=== PATIENT | female | born 1950 | race Caucasian/White ===

== ENCOUNTER 2020-11-18 18:17 | Inpatient (IN) | payer MEDICARE, OTHER, SELFPAY ==
[2020-11-18] VITALS (11 sets, daily range): BP systolic 82–113; BP diastolic 59–72; PULSE 83–99; RESP 14–23; TEMP 36.5; O2SAT 93–97
--- NOTE | ~2020-11-18 | CT_ITS ---
EXAMINATION: CT abdomen pelvis wo con DATE: 11/18/2020 20:00 INDICATION: Generalized abdominal pain. Status post cholecystectomy. TECHNIQUE: Computed tomography (CT) of the abdomen and pelvis was performed without intravenous contr ast. Automated exposure control and iterative reconstruction technique were employed. Exam dose: 691 .11 mGy-cm total exam DLP. COMPARISON: None. FINDINGS: There is bilateral dependent lower lobe atelectasis. No pericardial or pleural effusion. There is a large hiatal hernia. There is a right anterior percutaneous pigtail catheter in the gallbladder fossa, with some surroundi ng fat stranding. Anterior abdominal wall dayanna. No hepatic space-occupying mass lesion or bile duct dilatation. Normal splenic size. No pancreatic ma ss lesion, calcification or ductal dilatation is evident. The adrenal glands are unremarkable. There is a pinpoint nonobstructing lower pole right renal calculus. There is evidence of a subtle pin point nonobstructing lower pole left renal calculus as well. No ureteral calculus or hydroureteroneph rosis is evident. No renal space occupying mass lesion is evident on this limited noncontrast examina tion. There is atherosclerotic calcification of the abdominal aorta but no aneurysm. No intraperitoneal or retroperitoneal or pelvic mass lesion or adenopathy or ascites. No evidence of appendicitis. There is generalized thickening of the wall of the colon, possibly relat ed to evacuation versus colitis. No pneumatosis. No bowel obstruction or intraperitoneal free air is evident. There is some air within the urinary bladder lumen, possibly related to recent instrumentation; diffe rential diagnosis includes infection or less likely fistula. Urinary bladder is otherwise unremarkabl e. Status post hysterectomy. There is severe degenerative change of the thoracic and lumbar spine. IMPRESSION: Postoperative abdomen with percutaneous surgical pigtail drain in gallbladder fossa Bilateral dependent lower lobe atelectasis Large hiatal hernia Pinpoint nonobstructing lower pole calculus of each kidney is suggested Generalized prominence of the colon wall of the colon, possibly due to evacuation versus colitis Reviewed, dictated and finalized at [facility]. Reviewed, dictated and finalized at [facility]. IMPRESSION: Postoperative abdomen with percutaneous surgical pigtail drain in gallbladder fossa Bilateral dependent lower lobe atelectasis Large hiatal hernia Pinpoint nonobstructing lower pole calculus of each kidney is suggested Generalized prominence of the colon wall of the colon, possibly due to evacuati on versus colitis
--- NOTE | 2020-11-18 18:25 | ECG_ITS ---
Measurements Intervals [place] Rate: 96 P: 24 CO: 148 QRS: -43 QRSD: 99 T: 131 QT: 378 QTc: 480 Interpretive Statements SINUS RHYTHM LEFT AXIS DEVIATION POOR R WAVE PROGRESSION, ANTERIOR LEADS BORDERLINE ST-T WAVE ABNORMALITY- ANTEROLAT/INF LEADS BASELINE ARTIFACT- I, II, III, AVF BORDERLINE ECG Electronically Signed On 11-18-2020 21:17:33 CDT by Unruly Clay D.O.
[2020-11-18 18:53] LABS: Basophils Absolute Auto 0.1 K/mm3 (0.0-0.1); Basophils Percent Auto 0.4 % (0.2-1.2); Eosinophils Absolute Auto 0.1 K/mm3 (0-0.3); Eosinophils Percent Auto 0.2 % (0-4.4); Hematocrit 39.8 % (37.0-47.0); Hemoglobin 12.8 g/dL (12.0-15.0); Immature Granulocyte Absolute 0.47 K/mm3 (0.00-0.031); Immature Granulocyte Percent A 1.8 % (0-0.5); Lymphocytes Absolute Auto 1.44 K/mm3 (0.9-3.2); Lymphocytes Percent Auto 5.6 % (18.3-44.2); Mean Corpuscular HGB Conc 32.2 g/dl (32-36); Mean Corpuscular Hemoglobin 29.7 pg (26-34); Mean Corpuscular Volume 92.3 fl (80-100); Mean Platelet Volume 9.9 fl (7.4-10.4); Monocytes Absolute Auto 1.2 K/mm3 (0.1-0.6); Monocytes Percent Auto 4.5 % (2.6-8.5); Neutrophils Absolute Auto 22.4 K/mm3 (1.3-6.7); Neutrophils Percent Auto 87.5 % (45.5-73.1); Platelet Count Result 335 k/mm3 (150-375); Red Blood Count 4.31 M/mm3 (4.2-5.4); Red Cell Distribution Width 14.7 % (11.5-14.5); White Blood Count 25.6 K/mm3 (4.5-10.0)
[2020-11-18 19:03] LABS: Lactic Acid Reflex 1.7 mmol/L (0.7-2.1)
[2020-11-18 19:04] LABS: Add Urine Microscopic? YES; Appearance Urine Turbid (Clear); Bacteria Urine 1+ /hpf; Bilirubin Urine Negative (Negative); Color Urine Yellow (Yellow); Glucose Urine UA Negative (Negative); Ketones Urine Negative (Negative); Leukocyte Esterase Ur 1+ LEU/UL (Negative); Mucus Urine Rare /lpf; Nitrate Urine Negative (Negative); Protein Urine 2+ mg/dL (Negative); RBC Urine 51-75 /hpf (0-2); Specific Grav Ur 1.026 (1.001-1.035); Squamous Epithelial Cell Urine Many /hpf (Few); Urobilinogen Urine Negative mg/dL (<2.0); WBC Urine >75 /hpf
[2020-11-18 19:12] LABS: Blood Urine Negative (Negative)
[2020-11-18 19:32] LABS: Alanine Aminotransferase 10 U/L (4-35); Albumin Level 3.7 g/dL (3.5-5.1); Alkaline Phosphatase 97 U/L (38-126); Anion Gap 13 mmol/L (8-16); Aspartate Amino Transferase 16 U/L (14-36); Bilirubin,Total 0.6 mg/dL (0.2-1.3); Blood Urea Nitrogen 36 mg/dL (7-17); Calcium 8.7 mg/dL (8.4-10.2); Carbon Dioxide 23 mmol/L (22-30); Chloride 101 mmol/L (98-107); Estimated CRCL calculation 12 ml/min; Estimated Glomerular Filt Rate 12; Glucose 105 mg/dL (65-105); Potassium 3.3 mmol/L (3.4-5.0); Sodium 137 mmol/L (137-145)
--- NOTE | 2020-11-18 19:32 | ED.AMS ---
HPI - Altered Mental Status General Chief Complaint: Altered Mental Status <Syd Stoll MD - Last Filed: 11/19/20 00:05> Stated Complaint: ?sepsis <Syd Stoll MD - Last Filed: 11/19/20 00:05> Time Seen by Provider: 11/18/20 18:51 <Syd Stoll MD - Last Filed: 11/19/20 00:05> Source: EMS and RN notes reviewed <Syd Stoll MD - Last Filed: 11/19/20 00:05> Mode of arrival: EMS <Syd Stoll MD - Last Filed: 11/19/20 00:05> Limitations: dementia <Syd Stoll MD - Last Filed: 11/19/20 00:05> History of Present Illness HPI narrative: Patient is 70 years old white female came by ambulance from [facility] because of decreased level of consciousness. Normally patient is awake, alert and oriented x2, today oriented to herself only. Patient also had frequent loose stools started yesterday at least 6 episodes overnight smelled like C. difficile. Patient used to be on Augmentin started November 07, ended on November 14. Patient also had history of normal pressure hydrocephalus scheduled to see a neurologist on the eighth of this month. Patient was admitted to [facility] on November 07, had right upper quadrant drain because patient is not a candidate for surgery. Patient is full code. The above history [facility] through a phone call. <Syd Stoll MD - Last Filed: 11/19/20 00:05> Related Data Home Medications: Home Medications Medication Instructions Recorded Confirmed acetaminophen 500 mg PO QID PRN 11/18/20 11/18/20 amoxicillin-pot clavulanate tablet 11/18/20 [Augmentin] atorvastatin 20 mg PO DAILY 11/18/20 11/18/20 hydrochlorothiazide 25 mg PO DAILY 11/18/20 11/18/20 levothyroxine 150 mcg PO DAILY 11/18/20 11/18/20 lisinopril 40 mg PO DAILY 11/18/20 11/18/20 polyethylene glycol 3350 [Miralax] 17 g PO DAILY 11/18/20 11/18/20 <Syd Stoll MD - Last Filed: 11/19/20 00:05> Allergies/Adverse Reactions: Allergies Allergy/AdvReac Type Severity Reaction Status Date / Time meperidine Allergy Mild Unknown Verified 11/19/20 00:00 <Syd Stoll MD - Last Filed: 11/19/20 00:05> Review of Systems Review of Systems: All systems reviewed & are unremarkable except as noted in HPI and below <Syd Stoll MD - Last Filed: 11/19/20 00:05> Exam Narrative: Exam Narrative: General appearance: Well-developed, well-nourished laying down flat in bed, does not look in pain or distress, Skin: Dry skin r Head: Normocephalic, nontraumatic Eyes: Clear conjunctiva ENT: Dry oral cavity and tongue Neck: Supple, nontender Chest and respiratory: Airway patent, no respiratory distress, no accessory muscle use Heart: Regular rate/rhythm Abdomen: Soft, positive tenderness right abdomen around the drain., no organomegaly, quiet bowel sounds Vascular: Normal peripheral pulses, normal capillary refill. Neurologic: Alert and oriented to her name only <Syd Stoll MD - Last Filed: 11/19/20 00:05> Course Course Emergency Course: Stable <Syd Stoll MD - Last Filed: 11/19/20 00:05> Return to myself and Dr. Stoll seen evaluate myself agree with initial H&P Discussed with Dr. Bonilla patient presentation work-up no beds available at [facility] agrees to admission at this time awaiting bed at [facility] <Bennett Forte DO - Last Filed: 11/19/20 01:00> Reevaluation(s) Reevaluation #1: Patient laying down in bed comfortable, hemodynamically stable, <Syd Stoll MD - Last Filed: 11/19/20 00:05> Date: 11/18/20 <Syd Stoll MD - Last Filed: 11/19/20 00:05> Time: 23:53 <Syd Stoll MD - Last Filed: 11/19/20 00:05> Consultations Consultation #1:
[2020-11-18 19:43] LABS: Alveolar/Arterial O2 Gradient 45.7 mmHg; Base Excess ABG -2.3 mEq/l (+/-2.0); Fractional Inspired Oxygen 21 %; HCO3 ABG 20.4 mEq/l (22.0-26.0); Oxygen Content ABG 16.8 %vol (16.0-22.0); Oxygen Saturation ABG 94.9 % (95.0-100.0); Oxyhemoglobin 92.6 % THb (90.0-100.0); PCO2 ABG 29.3 mmHg (35.0-45.0); PO2 ABG 68.9 mmHg (80.0-100.0); PO2 FiO2 Ratio Arterial Blood 3.28 %; Total Hemoglobin 12.9 g/dL (12.0-18.0); pH ABG 7.461 (7.350-7.450)
[2020-11-18 19:44] LABS: Device ROOM AIR; Modified Allen's Test Pass; Site Drawn RIGHT RADIAL
[2020-11-18] MEDS: SODIUM CHLORIDE 0.9% IV 1,000 ML 999 ML IV CONT ×2 (20:21→23:14)
[2020-11-18 22:16] LABS: EDCOVIDSCREEN Negative (Negative)
--- NOTE | 2020-11-18 23:00 | PC.NURSE ---
Assumed care of pt. at this time. Report from [facility]
[2020-11-19] VITALS (9 sets, daily range): BP systolic 100–124; BP diastolic 68–76; PULSE 70–95; RESP 13–19; TEMP 36.2–36.8; O2SAT 93–98; BMI 25.7
--- NOTE | 2020-11-19 00:29 | PC.NURSE ---
Spoke with Mass[facility] in regards to pt. triage information. States we are on a bed crunch right now.
[2020-11-19] MEDS: SODIUM CHLORIDE 0.9% IV 1,000 ML 125 ML IV CONT ×4 (00:50→17:56)
--- NOTE | 2020-11-19 02:08 | ADMGEN ---
This patient, Anu Aguilar, was admitted to 2 Medical Room [facility] in [place]- @0208. Patient/family oriented to hospital policies and general routines including ID bracelet, bed and alarms, visiting hours, pain management, procedures, bathroom and other care routines, personal items, smoking policy, room service/diet, and visiting hours. Information on how to activate the Rapid Response Team has been discussed. Patient/Family are encouraged to report perceived risks to care and to ask questions if they do not understand what they are told or what they should do.
--- NOTE | 2020-11-19 08:29 | PM.IMHP ---
H&P: HPI History of Present Illness Date/Time: 11/19/20 08:15 Patient is a 70-year-old female with past medical history of hypertension, hyperlipidemia, GERD, hypothyroidism, and anxiety and depression and who presented to the ED with complaints of altered mental status from [facility]. It is very unclear why this patient was put in the [facility] however she does have a recently placed pigtail on the right side of her abdomen to drain the gallbladder because patient is unable to have surgery or is not a candidate. According the nurse home the patient is normally A and O x2. This patient normally sees doctors at [facility], and [facility] has been contacted for transfer [facility] has accepted this patient however patient is awaiting bed. retirement also stated the patient has had frequent loose stools and they felt like it was C diff. Patient has been on Augmentin that was started on November 07. Upon examining the patient the patient went answer questions she did tell me would not open her eyes. She told me that the year was 2009 but she did know the president was President Leobardo. When I would ask patient about her symptoms she would just say no however she did tell me that she does smoke about a pack and half a day but when asked about the diarrhea she said she has not had any diarrhea. Patient also has a high creatinine 3.7 and her white count is 25.6 Zosyn has been started for this patient will continue for now. Will deescalate and change antibiotics with cultures. Stool is also been sit down for C diff results are pending. Patient is a poor historian and currently lying in bed and stated that she was tired and she want to go home. Patient is being admitted inpatient for treatment of C. Diff, JENNIFFER, and AMS Chief Complaint: Altered mental status Review of Systems Review of Systems: ROS unobtainable: Yes unobtainable due to medical condition and unobtainable due to mental status PMFSH Past Medical History Medical History Anxiety and depression Cholecystostomy drain infection GERD (gastroesophageal reflux disease) Hyperlipemia Hypertension Hypothyroid Family History Family History Other Unknown family medical history Social History Social History Social History: Patient seems to be confused and is currently a full code. The chart has Tracy salinas and Luis Aguilar as people to notify. Smoking packs per day: 1.5 Smoking cigarettes per day: 30.0 Smoking status: Current every day smoker Alcohol intake: unknown Substance use: unknown Gender identity (if verbalized by the patient): Female Spiritual care concerns: No Meds Home Medications and Allergies Home Medications Medication Instructions Recorded Confirmed Type acetaminophen 500 mg PO TID PRN 11/18/20 11/19/20 History atorvastatin 20 mg PO DAILY 11/18/20 11/18/20 History hydrochlorothiazide 25 mg PO DAILY 11/18/20 11/18/20 History levothyroxine 150 mcg PO DAILY 11/18/20 11/18/20 History lisinopril 40 mg PO DAILY 11/18/20 11/18/20 History polyethylene glycol 3350 [Miralax] 17 g PO DAILY 11/18/20 11/18/20 History duloxetine 30 mg PO BID 11/19/20 11/19/20 History Allergies Allergy/AdvReac Type Severity Reaction Status Date / Time meperidine Allergy Mild Unknown Verified 11/19/20 03:06 Vital Signs Vital Signs - 24 hr 11/18/20 18:18 11/18/20 18:45 11/18/20 19:01 Temperature 36.5 C Pulse Rate 97 94 90 Respiratory Rate 14 14 22 H Blood Pressure 91/72 L 103/59 L 96/61 L Pulse Oximetry 93 11/18/20 19:32 11/18/20 19:34 11/18/20 19:45 Temperature Pulse Rate 97 99 95 Respiratory Rate 18 19 20 Blood Pressure 82/63 L 90/63 L Pulse Oximetry 96 96 96 11/18/20 20:01 11/18/20 20:02 11/18/20 21:01 Temperature Pulse Rate 89 96 89 Respiratory Rate 18 23 H 15 Blood
[2020-11-19 18:06] LABS: Glucose Point of Care 71 mg/dl (65-105)
--- NOTE | 2020-11-19 18:10 | PC.NURSE ---
Blood glucose 71. Called Dr. Santana and notified him that patient is NPO and on normal saline. Orders received to change IVFs if blood glucose drops below 70.
[2020-11-19] MEDS: DULoxetine HCL 30 MG CAPSULE.DR PO (19:01)
[2020-11-19 21:56] LABS: Glucose Point of Care 64 mg/dl (65-105)
[2020-11-19] MEDS: DEXTROSE 5%/0.45% SOD CHL 1,000 ML 125 ML IV CONT (22:10)
[2020-11-19 23:52] LABS: Glucose Point of Care 79 mg/dl (65-105)
[2020-11-20 05:40] LABS: Basophils Absolute Auto 0.1 K/mm3 (0.0-0.1); Basophils Percent Auto 0.9 % (0.2-1.2); Eosinophils Absolute Auto 0.3 K/mm3 (0-0.3); Eosinophils Percent Auto 2.2 % (0-4.4); Hematocrit 32.1 % (37.0-47.0); Hemoglobin 10.5 g/dL (12.0-15.0); Immature Granulocyte Absolute 0.11 K/mm3 (0.00-0.031); Immature Granulocyte Percent A 0.9 % (0-0.5); Lymphocytes Absolute Auto 1.73 K/mm3 (0.9-3.2); Lymphocytes Percent Auto 14.4 % (18.3-44.2); Mean Corpuscular HGB Conc 32.7 g/dl (32-36); Mean Corpuscular Hemoglobin 30.5 pg (26-34); Mean Corpuscular Volume 93.3 fl (80-100); Monocytes Absolute Auto 0.6 K/mm3 (0.1-0.6); Monocytes Percent Auto 4.7 % (2.6-8.5); Neutrophils Absolute Auto 9.3 K/mm3 (1.3-6.7); Neutrophils Percent Auto 76.9 % (45.5-73.1); Platelet Count Result 267 k/mm3 (150-375); Red Blood Count 3.44 M/mm3 (4.2-5.4); Red Cell Distribution Width 14.2 % (11.5-14.5)
[2020-11-20 05:44] VITALS: BP 142/76; PULSE 63; RESP 18; TEMP 36.3; O2SAT 96
[2020-11-20] MEDS: LEVOTHYROXINE SODIUM 150 MCG TABLET PO (06:05)
[2020-11-20 06:10] LABS: Anion Gap 9 mmol/L (8-16); Blood Urea Nitrogen 23 mg/dL (7-17); Calcium 7.5 mg/dL (8.4-10.2); Carbon Dioxide 19 mmol/L (22-30); Chloride 111 mmol/L (98-107); Estimated CRCL calculation 26 ml/min; Estimated Glomerular Filt Rate 35; Glucose 87 mg/dL (65-105); Potassium 2.7 mmol/L (3.4-5.0); Sodium 139 mmol/L (137-145)
[2020-11-20 08:16] LABS: Glucose Point of Care 89 mg/dl (65-105)
[2020-11-20] MEDS: DEXTROSE 5%/0.45% SOD CHL 1,000 ML 70 ML IV CONT (09:45)
[2020-11-20] MEDS: POTASSIUM CHLORIDE 20 MEQ TABLET 60 MEQ PO ×2 (09:46→16:17)
[2020-11-20] MEDS: DULoxetine HCL 30 MG CAPSULE.DR PO ×2 (09:47→16:18)
[2020-11-20] MEDS: lisinopriL 20 MG TABLET 40 MG PO (09:47)
[2020-11-20] MEDS: hydroCHLOROthiazide 25 MG TABLET PO (09:47)
[2020-11-20] MEDS: ATORVASTATIN 20 MG TABLET PO (09:47)
[2020-11-20] MEDS: ENOXAPARIN 30 MG/0.3 ML SYRINGE SUB-Q (09:47)
[2020-11-20 13:26] LABS: Glucose Point of Care 133 mg/dl (65-105)
[2020-11-20 13:36] LABS: Potassium 2.8 mmol/L (3.4-5.0)
[2020-11-20 14:00] VITALS: BP 124/56; PULSE 64; RESP 18; TEMP 36.9; O2SAT 94
--- NOTE | 2020-11-20 14:54 | PM.IMPN ---
Progress Note: A&P Assessment and Plan (1) Sepsis: Code(s): A41.9 - Sepsis, unspecified organism Status: Acute Assessment and Plan: Patient meets sepsis criteria on arrival with hypotension 91/72, leukocytosis at 20,000, JENNIFFER, altered mental status, in the setting of infectious colitis C diff, possible urinary tract infection and possible cholecystitis infection with cholecystostomy tube. Patient is being treated for C diff with oral vancomycin, was being treated for Cholecystitis with PO Aug[facility]in from [facility], but was switched to IV Zosyn on arrival to ER and pending urine culture results for UTI. Much improved today, leukocytosis improved, BP stable, afebrile and creatinine improving. Blood cultures negative to date Continue monitoring Pending bed availability at [facility] which is where she received all of her care (2) C. difficile colitis: Code(s): A04.72 - Enterocolitis due to Clostridium difficile, not specified as recurrent Status: Acute Assessment and Plan: Patients stool culture was positive for C diff. He was started on oral vancomycin for treatment. stools are slowing down, only one bowel movement today Continue monitoring. (3) Urinary tract infection: Qualifiers: Hematuria presence: with hematuria Urinary tract infection type: site unspecified Qualified Code(s): N39.0 - Urinary tract infection, site not specified; R31.9 - Hematuria, unspecified Code(s): N39.0 - Urinary tract infection, site not specified Status: Acute Assessment and Plan: UA showed cloudy, leukocytes esterase (+), WBC are >75, Urine bacteria 1 (+) which is consistent with a urinary tract infection. She was placed on IV Zosyn for both coverage of UTI as well as cholecystitis infection since she has a cholecystostomy drain in place. Urine Culture pending Continue mointoring, make adjustments if necessary. (4) Cholecystostomy drain infection: Code(s): T85.79XA - Infection and inflammatory reaction due to other internal prosthetic devices, implants and grafts, initial encounter Status: Acute Assessment and Plan: Drain placed at [facility] and intact at this time. Draining a brown/koroma thick liquid Continue monitoring CMP. Nurses to masure and document output of the drain (5) JENNIFFER (acute kidney injury): Code(s): N17.9 - Acute kidney failure, unspecified Status: Acute Assessment and Plan: Cr on arrival was 3.7. Given IV fluids and improvement to Cr today 1.5. IV fluids were decreased this afternoon since she was tolerating a diet. Will recheck BMP in the morning. (6) AMS (altered mental status): Code(s): R41.82 - Altered mental status, unspecified Status: Acute Assessment and Plan: Much improved today with treatment of underlying infection. Continue monitoring. (7) Hypothyroid: Code(s): E03.9 - Hypothyroidism, unspecified Status: Acute Assessment and Plan: Continue levothyroxine 150mcg PO Daily (8) GERD (gastroesophageal reflux disease): Code(s): K21.9 - Gastro-esophageal reflux disease without esophagitis Status: Acute Assessment and Plan: PPI while hospitalized daily (9) Hyperlipemia: Code(s): E78.5 - Hyperlipidemia, unspecified Status: Acute Assessment and Plan: Continue home Atorvastatin 20mg PO daily (10) Hypertension: Code(s): I10 - Essential (primary) hypertension Status: Acute Assessment and Plan: BP this morning 142/76 Continue home hydrochlorothiazide 25mg PO daily and Lisinopril 40mg PO daily Monitor BP and hydration status. Make adjustment if necessary (11) Hypokalemia: Code(s): E87.6 - Hypokalemia Status: Acute Assessment and Plan: Severe hypokalemia most likely due to diarrhea, dehdyration, IV Fluid dilution K was 2.8 this morning. Mag
[2020-11-20] MEDS: PANTOPRAZOLE 40 MG TABLET PO (16:17)
[2020-11-20 20:00] VITALS: PULSE 72; RESP 18; O2SAT 94
[2020-11-20 20:11] LABS: Hemoglobin 11.1 g/dL (12.0-15.0)
[2020-11-20 20:21] LABS: Potassium 3.4 mmol/L (3.4-5.0)
[2020-11-20] MEDS: MELATONIN 3 MG TABLET PO (20:56)
[2020-11-20 21:40] VITALS: BP 135/73; PULSE 68; RESP 16; TEMP 36.7; O2SAT 96
[2020-11-21] VITALS (9 sets, daily range): BP systolic 141–148; BP diastolic 75–89; PULSE 63–72; RESP 16; TEMP 36.1–36.6; O2SAT 95–97
[2020-11-21 05:38] LABS: Basophils Absolute Auto 0.1 K/mm3 (0.0-0.1); Basophils Percent Auto 0.8 % (0.2-1.2); Eosinophils Absolute Auto 0.2 K/mm3 (0-0.3); Eosinophils Percent Auto 1.9 % (0-4.4); Hematocrit 33.5 % (37.0-47.0); Immature Granulocyte Percent A 1.1 % (0-0.5); Lymphocytes Absolute Auto 1.56 K/mm3 (0.9-3.2); Lymphocytes Percent Auto 17.8 % (18.3-44.2); Mean Corpuscular HGB Conc 32.8 g/dl (32-36); Mean Corpuscular Hemoglobin 30.1 pg (26-34); Mean Corpuscular Volume 91.5 fl (80-100); Mean Platelet Volume 9.9 fl (7.4-10.4); Monocytes Absolute Auto 0.5 K/mm3 (0.1-0.6); Monocytes Percent Auto 6.2 % (2.6-8.5); Neutrophils Absolute Auto 6.3 K/mm3 (1.3-6.7); Neutrophils Percent Auto 72.2 % (45.5-73.1); Platelet Count Result 277 k/mm3 (150-375); Red Blood Count 3.66 M/mm3 (4.2-5.4); Red Cell Distribution Width 13.7 % (11.5-14.5); White Blood Count 8.8 K/mm3 (4.5-10.0)
[2020-11-21 05:48] LABS: Alanine Aminotransferase 7 U/L (4-35); Albumin Level 3.1 g/dL (3.5-5.1); Alkaline Phosphatase 90 U/L (38-126); Anion Gap 7 mmol/L (8-16); Aspartate Amino Transferase 17 U/L (14-36); Bilirubin,Total 0.4 mg/dL (0.2-1.3); Blood Urea Nitrogen 13 mg/dL (7-17); Calcium 8.4 mg/dL (8.4-10.2); Carbon Dioxide 20 mmol/L (22-30); Chloride 111 mmol/L (98-107); Estimated CRCL calculation 32 ml/min; Estimated Glomerular Filt Rate 45; Glucose 85 mg/dL (65-105); Potassium 3.3 mmol/L (3.4-5.0); Sodium 138 mmol/L (137-145)
[2020-11-21] MEDS: LEVOTHYROXINE SODIUM 150 MCG TABLET PO (06:27)
[2020-11-21] MEDS: hydroCHLOROthiazide 25 MG TABLET PO (08:37)
[2020-11-21] MEDS: POTASSIUM CHLORIDE 20 MEQ TABLET 40 MEQ PO (08:37)
[2020-11-21] MEDS: lisinopriL 20 MG TABLET 40 MG PO (08:37)
[2020-11-21] MEDS: DULoxetine HCL 30 MG CAPSULE.DR PO ×2 (08:37→17:09)
[2020-11-21] MEDS: ENOXAPARIN 30 MG/0.3 ML SYRINGE SUB-Q (08:37)
[2020-11-21] MEDS: ATORVASTATIN 20 MG TABLET PO (08:37)
[2020-11-21] MEDS: PANTOPRAZOLE 40 MG TABLET PO (08:38)
--- NOTE | 2020-11-21 14:26 | PM.IMPN ---
Progress Note: A&P Assessment and Plan (1) Sepsis: Code(s): A41.9 - Sepsis, unspecified organism Status: Acute Assessment and Plan: Patient meets sepsis criteria on arrival with hypotension 91/72, leukocytosis at 20,000, JENNIFFER, altered mental status, in the setting of infectious colitis C diff, possible urinary tract infection and possible cholecystitis infection with cholecystostomy tube. Patient is being treated for C diff with oral vancomycin, was being treated for Cholecystitis with PO Augmentin (which was completed on 11/15/20) at [facility], but was switched to IV Zosyn on arrival to ER while undergoing work up for cause of sepsis. Pending urine culture results for UTI. Much improved today, leukocytosis improved, BP stable, afebrile and creatinine improving. Blood cultures negative to date Continue monitoring Pending bed availability at [facility] which is where she received all of her care (2) C. difficile colitis: Code(s): A04.72 - Enterocolitis due to Clostridium difficile, not specified as recurrent Status: Acute Assessment and Plan: Patients stool culture was positive for C diff. He was started on oral vancomycin for treatment. stools are slowing down, no bowel movement today Continue monitoring. (3) Urinary tract infection: Qualifiers: Hematuria presence: with hematuria Urinary tract infection type: site unspecified Qualified Code(s): N39.0 - Urinary tract infection, site not specified; R31.9 - Hematuria, unspecified Code(s): N39.0 - Urinary tract infection, site not specified Status: Acute Assessment and Plan: UA showed cloudy, leukocytes esterase (+), WBC are >75, Urine bacteria 1 (+) which is consistent with a urinary tract infection. She was placed on IV Zosyn for both coverage of UTI as well as cholecystitis infection since she has a cholecystostomy drain in place. Urine Culture pending Continue mointoring, make adjustments if necessary. (4) Cholecystostomy drain infection: Code(s): T85.79XA - Infection and inflammatory reaction due to other internal prosthetic devices, implants and grafts, initial encounter Status: Acute Assessment and Plan: Drain placed at [facility] and intact at this time. Draining a brown/koroma thick liquid Continue monitoring CMP. Nurses to masure and document output of the drain (5) JENNIFFER (acute kidney injury): Code(s): N17.9 - Acute kidney failure, unspecified Status: Acute Assessment and Plan: Cr on arrival was 3.7. Given IV fluids and improvement to Cr today 1.5. IV fluids were decreased this afternoon since she was tolerating a diet. Will recheck BMP in the morning. (6) AMS (altered mental status): Code(s): R41.82 - Altered mental status, unspecified Status: Acute Assessment and Plan: Much improved today with treatment of underlying infection. Continue monitoring. (7) Hypothyroid: Code(s): E03.9 - Hypothyroidism, unspecified Status: Acute Assessment and Plan: Continue levothyroxine 150mcg PO Daily (8) GERD (gastroesophageal reflux disease): Code(s): K21.9 - Gastro-esophageal reflux disease without esophagitis Status: Acute Assessment and Plan: PPI while hospitalized daily (9) Hyperlipemia: Code(s): E78.5 - Hyperlipidemia, unspecified Status: Acute Assessment and Plan: Continue home Atorvastatin 20mg PO daily (10) Hypertension: Code(s): I10 - Essential (primary) hypertension Status: Acute Assessment and Plan: BP this morning 142/76 Continue home hydrochlorothiazide 25mg PO daily and Lisinopril 40mg PO daily Monitor BP and hydration status. Make adjustment if necessary (11) Hypokalemia: Code(s): E87.6 - Hypokalemia Status: Acute Assessment and Plan: Severe hypokalemia most likely due
[2020-11-21] MEDS: MELATONIN 3 MG TABLET PO (21:13)
[2020-11-22] VITALS (9 sets, daily range): BP systolic 130–146; BP diastolic 72–86; PULSE 66–86; RESP 18–20; TEMP 36.1–36.4; O2SAT 95–99
[2020-11-22 05:54] LABS: Anion Gap 8 mmol/L (8-16); Blood Urea Nitrogen 9 mg/dL (7-17); Calcium 8.2 mg/dL (8.4-10.2); Carbon Dioxide 22 mmol/L (22-30); Chloride 108 mmol/L (98-107); Estimated CRCL calculation 38 ml/min; Estimated Glomerular Filt Rate 55; Glucose 83 mg/dL (65-105); Magnesium 1.8 mg/dL (1.6-2.3); Potassium 3.3 mmol/L (3.4-5.0); Sodium 138 mmol/L (137-145)
[2020-11-22] MEDS: LEVOTHYROXINE SODIUM 150 MCG TABLET PO (06:09)
[2020-11-22] MEDS: ATORVASTATIN 20 MG TABLET PO (08:43)
[2020-11-22] MEDS: lisinopriL 20 MG TABLET 40 MG PO (08:43)
[2020-11-22] MEDS: DULoxetine HCL 30 MG CAPSULE.DR PO ×2 (08:43→17:03)
[2020-11-22] MEDS: PANTOPRAZOLE 40 MG TABLET PO (08:43)
[2020-11-22] MEDS: hydroCHLOROthiazide 25 MG TABLET PO (08:43)
[2020-11-22] MEDS: ENOXAPARIN 30 MG/0.3 ML SYRINGE SUB-Q (08:43)
[2020-11-22] MEDS: POTASSIUM CHLORIDE 20 MEQ TABLET 40 MEQ PO (10:21)
--- NOTE | 2020-11-22 12:42 | PM.IMPN ---
Progress Note: A&P Assessment and Plan (1) Sepsis: Code(s): A41.9 - Sepsis, unspecified organism Status: Acute Assessment and Plan: Patient meets sepsis criteria on arrival with hypotension 91/72, leukocytosis at 20,000, JENNIFFER, altered mental status, in the setting of infectious colitis C diff, possible urinary tract infection and possible cholecystitis infection with cholecystostomy tube. Patient is being treated for C diff with oral vancomycin, was being treated for Cholecystitis with PO Augmentin (which was completed on 11/15/20) at [facility], but was switched to IV Zosyn on arrival to ER while undergoing work up for cause of sepsis. Urine culture came back showing contamination, no isolated bacteria for infection Much improved today, leukocytosis normalized, BP stable, afebrile and creatinine improving. Blood cultures negative to date Continue monitoring Pending bed availability at [facility] which is where she received all of her care (2) C. difficile colitis: Code(s): A04.72 - Enterocolitis due to Clostridium difficile, not specified as recurrent Status: Acute Assessment and Plan: Patients stool culture was positive for C diff. He was started on oral vancomycin for treatment 11/19/20 at midnight. No bowel movement today Continue monitoring. (3) Urinary tract infection: Qualifiers: Hematuria presence: with hematuria Urinary tract infection type: site unspecified Qualified Code(s): N39.0 - Urinary tract infection, site not specified; R31.9 - Hematuria, unspecified Code(s): N39.0 - Urinary tract infection, site not specified Status: Acute Assessment and Plan: UA showed cloudy, leukocytes esterase (+), WBC are >75, Urine bacteria 1 (+) which is consistent with a urinary tract infection. She was placed on IV Zosyn for both coverage of UTI as well as cholecystitis infection since she has a cholecystostomy drain in place. Urine Culture shows contamination. No UTI Continue monitoring, make adjustments if necessary. (4) Cholecystostomy drain infection: Code(s): T85.79XA - Infection and inflammatory reaction due to other internal prosthetic devices, implants and grafts, initial encounter Status: Acute Assessment and Plan: Drain placed at [facility] and intact at this time. Draining a brown/koroma thick liquid Will continue IV Zosyn for cholecystitis infection coverage Continue monitoring CMP. Nurses to masure and document output of the drain (5) JENNIFFER (acute kidney injury): Code(s): N17.9 - Acute kidney failure, unspecified Status: Acute Assessment and Plan: Cr on arrival was 3.7. Given IV fluids and improvement to Cr today 1.0. Stable. Will recheck BMP in the morning. (6) AMS (altered mental status): Code(s): R41.82 - Altered mental status, unspecified Status: Acute Assessment and Plan: Much improved today with treatment of underlying infection. Continue monitoring. (7) Hypothyroid: Code(s): E03.9 - Hypothyroidism, unspecified Status: Acute Assessment and Plan: Continue levothyroxine 150mcg PO Daily (8) GERD (gastroesophageal reflux disease): Code(s): K21.9 - Gastro-esophageal reflux disease without esophagitis Status: Acute Assessment and Plan: PPI while hospitalized daily (9) Hyperlipemia: Code(s): E78.5 - Hyperlipidemia, unspecified Status: Acute Assessment and Plan: Continue home Atorvastatin 20mg PO daily (10) Hypertension: Code(s): I10 - Essential (primary) hypertension Status: Acute Assessment and Plan: BP this morning 146/86 Continue home hydrochlorothiazide 25mg PO daily and Lisinopril 40mg PO daily Monitor BP and hydration status. Make adjustment if necessary (11) Hypokalemia: Code(s): E87.6 - Hypokalemia Status: Acute
--- NOTE | 2020-11-22 17:50 | PC.NURSE ---
Report given to Sherie ESQUIVEL at [facility]. Patient does not need telemetry for transport to [facility] per Dr. Marlow. Patient to transport to [facility] room [id number] per ambulance.
[2020-11-22] MEDS: MELATONIN 3 MG TABLET PO (20:43)
[2020-11-23] VITALS: PULSE 65
--- NOTE | 2020-11-23 07:28 | PM.TDS ---
Transfer Discharge Sum: Prov Provider Date of admission: 11/19/20 12:47 Primary care physician: Elder Richards, Admitting clinician: Tita Bonilla DO Consults: 11/19/20 Wound/ET Consult Routine Reason for Consult:: Excoriated buttocks DS: Admitting Diagnosis Admitting Diagnosis Admitting Diagnosis: AMS DS: Discharge Diagnosis Discharge Diagnosis (1) Sepsis: Code(s): A41.9 - Sepsis, unspecified organism Status: Acute Assessment and Plan: Patient is a 70-year-old female with past medical history of hypertension, hyperlipidemia, GERD, hypothyroidism, and anxiety and depression and who presented to the ED with complaints of altered mental status from senior living. She was for recently and [facility] in diagnosed with cholecystitis, due to the significant infection, they placed a cholecystostomy tube in placed her on antibiotics and discharged her to a local nursing facility. She was instructed to return after infection was resolved so that they could per a cholecystectomy. While at the senior living she developed diarrhea while on Augmentin and. She came in to our hospital due to altered mental status via EMS. Initially the patient meet sepsis criteria on arrival with hypotension 91/72, leukocytosis at 25,000, JENNIFFER, altered mental status, in the setting of infectious colitis C diff and possible cholecystitis infection with cholecystostomy tube. At 3.3, JENNIFFER with creatinine at 3.7, BUN 36, normal LFTs. Patient was admitted into the hospital with treatment for C diff with oral vancomycin, was being treated for Cholecystitis with PO Augmentin (which was completed on 11/15/20) at the [facility], but was switched to IV Zosyn on arrival to ER while undergoing work up for cause of sepsis. Urine culture came back showing contamination, no isolated bacteria for infection Much improved today, leukocytosis normalized, BP stable, afebrile and creatinine improving. Blood cultures negative to date The patient was accepted to [facility] since she was recently admitted there for her acute arvin with perc drain. She was transferred in stable condition. (2) C. difficile colitis: Code(s): A04.72 - Enterocolitis due to Clostridium difficile, not specified as recurrent Status: Acute Assessment and Plan: Patients stool culture was positive for C diff. She was started on oral vancomycin for treatment 11/19/20 at midnight. No bowel movement today (3) Urinary tract infection: Qualifiers: Hematuria presence: with hematuria Urinary tract infection type: site unspecified Qualified Code(s): N39.0 - Urinary tract infection, site not specified; R31.9 - Hematuria, unspecified Code(s): N39.0 - Urinary tract infection, site not specified Status: Acute Assessment and Plan: UA showed cloudy, leukocytes esterase (+), WBC are >75, Urine bacteria 1 (+) which is consistent with a urinary tract infection. She was placed on IV Zosyn for both coverage of UTI as well as cholecystitis infection since she has a cholecystostomy drain in place. Urine Culture shows contamination. No UTI (4) Cholecystostomy drain infection: Code(s): T85.79XA - Infection and inflammatory reaction due to other internal prosthetic devices, implants and grafts, initial encounter Status: Acute Assessment and Plan: Drain placed at [facility] and intact at this time. Draining a brown/koroma thick liquid Will continue IV Zosyn for cholecystitis infection coverage and she will be transferred to [facility] (5) JENNIFFER (acute kidney injury): Code(s): N17.9 - Acute kidney failure, unspecified Status: Acute Assessment and Plan: Cr on arrival was 3.7. Given IV fluids and improvement to Cr today 1.0. Stable. (6) AMS (altered mental status): Code(s): R41.82 - Altered mental status, unspecified Status: Acute Assessment and Plan: Appears to be at baseline. (
--- NOTE | 2020-11-27 09:00 | PC.NURSE ---
Blood cx are negative.
== END 2020-11-23 01:53 | disposition short-term general hospital (02) | DRG 919 ==
LOC: ANHED 11-19 01:00 → ANH2MED 11-19 01:15
PROVIDERS: Emergency Medicine; Admitting Provider Internal Medicine; Emergency Provider Emergency Medicine; PCP Internal Medicine; Visit Provider Physician Assistant
DX: T85.79XA Infection and inflammatory reaction due to other internal prosthetic devices, implants and grafts, initial encounter (principal); A41.9 Sepsis, unspecified organism; A04.72 Enterocolitis due to Clostridium difficile, not specified as recurrent; N17.9 Acute kidney failure, unspecified; Z90.49 Acquired absence of other specified parts of digestive tract; Z20.822 Contact with and (suspected) exposure to COVID-19; E86.0 Dehydration; E87.6 Hypokalemia; E03.9 Hypothyroidism, unspecified; F41.9 Anxiety disorder, unspecified; F32.9 Major depressive disorder, single episode, unspecified; K21.9 Gastro-esophageal reflux disease without esophagitis; I10 Essential (primary) hypertension; R19.7 Diarrhea, unspecified; F17.210 Nicotine dependence, cigarettes, uncomplicated; E78.5 Hyperlipidemia, unspecified; Z79.899 Other long term (current) drug therapy
CPT/HCPCS: 36415; 36600; 51701; 74176; 80048; 80053; 81001; 82805; 82948; 83605; 83735; 84132; 85014; 85018; 85025; 87040; 87086; 87088; 87324; 87426; 93005; 96361; 96365; 96366; 97110; 97161; 97165; 97530; 99285; A9270; C9803; G0378; J1650; J2543; J7030

== ENCOUNTER 2021-06-29 13:03 | Inpatient (IN) | payer MEDICARE, OTHER, SELFPAY ==
[2021-06-29] VITALS (23 sets, daily range): BP systolic 110–144; BP diastolic 76–97; PULSE 71–80; RESP 13–23; TEMP 36.2–36.7; O2SAT 94–95; BMI 13.3
--- NOTE | ~2021-06-29 | XR_ITS ---
EXAMINATION: XR chest 1V portable EXAM DATE: 06/29/2021 13:38 INDICATION: AMS TECHNIQUE: Portable AP frontal chest x-ray was obtained. Comparison is made to prior examination from 12/14/2013. FINDINGS: There is moderate amount of left basilar airspace disease appearance most pneumonia and ate lectasis but please clinically correlate. This was not present on prior study. Mildly elevated left h emidiaphragm No pneumothorax or pleural effusion. Cardiomediastinal silhouette is normal. There is ao rtic arteriosclerosis. The bones are osteopenic. There are bony degenerative changes. Moderate-sized gastroesophageal hiatal hernia. IMPRESSION: 1. Multifocal left basilar airspace disease most consistent with pneumonia and atelectasis. 2. Moderate hiatal hernia. Reviewed, dictated and finalized at location G. ING SANDER OPERATOR
--- NOTE | ~2021-06-29 | CT_ITS ---
EXAMINATION: CT brain wo con DATE: 06/30/2021 09:23 INDICATION: Confusion TECHNIQUE: Computed tomography (CT) of the head was performed without intravenous contrast. The dose- length product was 681.00 mGy-cm. Automated exposure control and iterative reconstruction technique w ere employed. COMPARISON: None FINDINGS: Generalized atrophy. There is prominence of the lateral ventricles with moderate low-attenu ation in the periventricular white matter. No acute intracranial hemorrhage, infarction or mass. No m idline shift. There is mucosal thickening of the left maxillary, ethmoid and sphenoid sinuses. Small mastoid effusions. No depressed skull fractures. IMPRESSION: 1. Mild prominence of the lateral ventricles which may be due to brain parenchymal atrophy or normal pressure hydrocephalus. 2: Chronic age-related findings. 3: Moderate sinus disease. Reviewed, dictated and finalized at location A. TRIC BRAIN WAVE EQUIPMENT MECHANIC IMPRESSION: 1. Mild prominence of the lateral ventricles which may be due to brain parenchy mal atrophy or normal pressure hydrocephalus. 2: Chronic age-related findings. 3: Moderate sinus disease.
--- NOTE | ~2021-06-29 | CT_ITS ---
EXAMINATION: CTA chest PE protocol DATE: 07/01/2021 23:42 INDICATION: Abnormal chest radiograph. COVID-19 pneumonia. TECHNIQUE: Computed tomography angiography (CTA) of the chest was performed with 100 mL Omnipaque-350 intravenous contrast timed to evaluate the pulmonary arteries. Coronal maximum intensity projection 3D-reconstructions were created by the technologist. Automated exposure control and iterative reconst ruction technique were employed. The dose-length product was 230.64 mGy-cm. COMPARISON: Chest single view 06/29/2021, CT abdomen and pelvis 11/18/2020 FINDINGS: There is mild emphysema. There are mild peripheral groundglass opacities in the upper lobes and right lower lobe. There are airspace and groundglass opacities in basilar left lower lobe. There is mild dependent atelectasis bilaterally. There are small pleural effusions. The heart size is norm al. There are coronary artery calcifications. There is a small pericardial effusion. There is a moder ate-sized sliding hiatal hernia. There is no pulmonary embolus. There is severe cervical, thoracic, a nd lumbar spondylosis. IMPRESSION: 1. No pulmonary embolus. 2. Multifocal lung disease, worst in basilar left lower lobe, consistent with pneumonia. 3. Small pleural effusions. 4. Moderate-sized sliding hiatal hernia. 5. Small pericardial effusion. Reviewed, dictated and finalized at location A. ORATE ADMINISTRATIVE ASSISTANT IMPRESSION: 1. No pulmonary embolus. 2. Multifocal lung disease, worst in basilar left lower lobe, consistent with p neumonia. 3. Small pleural effusions. 4. Moderate-sized sliding hiatal hernia. 5. Small pericardial effusion.
--- NOTE | 2021-06-29 13:22 | ECG_ITS ---
Measurements Intervals [place] Rate: 73 P: 56 MA: 156 QRS: -56 QRSD: 97 T: 45 QT: 309 QTc: 342 Interpretive Statements SINUS RHYTHM LEFT AXIS DEVIATION BORDERLINE T WAVE ABNORMALITY- DIFFUSE LEADS BASELINE ARTIFACT- V3-V6 BORDERLINE ECG Electronically Signed On 06-29-2021 14:16:03 PATIENT FINANCIAL SERVICES COORDINATOR by Unruly Clay D.O.
--- NOTE | 2021-06-29 13:30 | PC.NURSE ---
Patient presents to the ED via EMS from home with c/o altered mental status. Per EMS patient's reported that she has been altered for 5 months now after being discharged from the [facility]. Per EMS the house was dirty, the patient had fecal matter under her fingernails, depends was soaking wet with urine, patient has cheese residue on her face and lips. Patient is A&Ox3. Patient's wanted patient to go to [place], however due to altered mental status and patient's request to come to [facility], EMS brought her to [place] ED. EMS iniated an IV prior to arrival to the left . Patient is cachectic in appearance, mucous membranes dry, tongue, dry, patient dirty, and smells of urine. Patient cleaned up by ED staff, patient with what appears to be a urostomy tube in place. Patient placed on cardiac, pulse ox, and blood pressure monitors. Vitals signs as charted. Pillow placed under patient's head, patient barely able to lift her head for journalists and other writers to place pillow. Patient bed in low position and call light in reach.
--- NOTE | 2021-06-29 13:31 | ED.AMS ---
HPI - Altered Mental Status General Chief Complaint: Altered Mental Status Stated Complaint: ams Time Seen by Provider: 06/29/21 13:11 History of Present Illness HPI narrative: 71-year-old female presenting to the emergency department for evaluation of altered mental status. Family states that the patient has been altered for approximately 5 months. Patient does live at home with her . Patient reported symptoms been going on for 1 day to EMS. Arrival to the emergency department patient was somnolent but arousable. Patient was dried feces on her hands and body. Patient appears very unkempt. No cyanosis upon arrival to the emergency department. Related Data Home Medications Medication Instructions Recorded Confirmed acetaminophen 500 mg PO TID PRN 11/18/20 11/19/20 atorvastatin 20 mg PO DAILY 11/18/20 11/18/20 hydrochlorothiazide 25 mg PO DAILY 11/18/20 11/18/20 levothyroxine 150 mcg PO DAILY 11/18/20 11/18/20 lisinopril 40 mg PO DAILY 11/18/20 11/18/20 polyethylene glycol 3350 [Miralax] 17 g PO DAILY 11/18/20 11/18/20 duloxetine 30 mg PO BID 11/19/20 11/19/20 Allergies Allergy/AdvReac Type Severity Reaction Status Date / Time meperidine Allergy Mild Unknown Verified 11/19/20 03:06 Review of Systems Review of Systems: ROS unobtainable: Yes unobtainable due to mental status PMFSH Past Medical History Medical History Anxiety and depression Cholecystostomy drain infection GERD (gastroesophageal reflux disease) Hyperlipemia Hypertension Hypothyroid Surgical History Surgical History (Updated 06/29/21 @ 18:11 by Elsa Colvin NP) H/O: hysterectomy Family History Family History Father Acute myocardial infarction Other Unknown family medical history Social History Social History (Updated 06/29/21 @ 19:09 by Elsa Colvin NP) Social History: Patient seems to be confused and is currently a full code. The chart has Tracy salinas and Luis Aguilar as people to notify. The patient has 2 children. She is retired from working in a [employer] plant. The patient continues to smoke at home. No alcohol marijuana or illicit drugs. The is the durable power blending technician for healthcare. Code status full code Smoking packs per day: 1.5 Smoking cigarettes per day: 30.0 Smoking status: Current every day smoker Alcohol intake: unknown Substance use: unknown Gender identity (if verbalized by the patient): Female Spiritual care concerns: No Exam Narrative: APPEARANCE: Ill-appearing HEAD: normocephalic, atraumatic. EYES: PERRLA/EOMI, conjunctivae clear. NOSE: Normal no drainage THROAT: Pharynx clear, no exudate. NECK: Supple. No adenopathy, no masses. RESPIRATORY: Airway patent, respirations nonlabored. Clear to auscultation bilaterally, no rales, rhonchi, wheezing. CARDIOVASCULAR: Regular rate and rhythm without murmurs rubs or gallops. ABDOMINAL: Soft, nontender, nondistended, normal bowel sounds. Well-established in right lower quadrant MUSCULOSKELETAL: Moves all extremities. Strength/ROM intact, No edema, No calf tenderness. NEURO: Alert. Cranial nerves II through XII intact. SKIN: Extensive skin breakdown on right thigh to right buttock. Course Course Emergency Course: Patient's imaging and labs reviewed. Patient's chest x-ray was read as pneumonia. Antibiotics were started due to the COVID testing having not been resulted yet. Prior to admission patient did test positive for COVID. Case was discussed with the hospitalist and patient was accepted for admission. Medical pression is COVID-pneumonia. Patient was stable at time of admission. Vital Signs Vital signs: Vital Signs Temperature 98.0 F 06/29/21 13:08 Pulse Rate 78 06/29/21 13:08 Respiratory Rate 13 06/29/21 13:08 Blood Pressure 137/88 06/29/21 13:08 Pulse Oximetry 94 06/29/21 1
[2021-06-29 14:20] LABS: Alveolar/Arterial O2 Gradient 46.4 mmHg; Base Excess ABG -3.2 mEq/l (+/-2.0); Fractional Inspired Oxygen 21 %; HCO3 ABG 19.7 mEq/l (22.0-26.0); Oxygen Content ABG 18.4 %vol (16.0-22.0); Oxygen Saturation ABG 94.4 % (95.0-100.0); Oxyhemoglobin 92.6 % THb (90.0-100.0); PCO2 ABG 29.7 mmHg (35.0-45.0); PO2 ABG 67.8 mmHg (80.0-100.0); PO2 FiO2 Ratio Arterial Blood 3.23 %; Total Hemoglobin 14.1 g/dL (12.0-18.0); pH ABG 7.439 (7.350-7.450)
[2021-06-29 14:21] LABS: Device ROOM AIR; Modified Allen's Test Pass; Site Drawn RIGHT RADIAL
[2021-06-29 14:23] LABS: Alanine Aminotransferase 32 U/L (4-35); Albumin Level 4.2 g/dL (3.5-5.1); Alkaline Phosphatase 70 U/L (38-126); Anion Gap 12 mmol/L (8-16); Aspartate Amino Transferase 47 U/L (14-36); Basophils Percent Auto 0.2 % (0.2-1.2); Bilirubin,Total 1.1 mg/dL (0.2-1.3); Blood Urea Nitrogen 17 mg/dL (7-17); Calcium 8.9 mg/dL (8.4-10.2); Carbon Dioxide 23 mmol/L (22-30); Chloride 102 mmol/L (98-107); Eosinophils Percent Auto 0.2 % (0-4.4); Estimated CRCL calculation 25 ml/min; Estimated Glomerular Filt Rate 49; Glucose 85 mg/dL (65-110); Hematocrit 42.5 % (37.0-47.0); Hemoglobin 14.8 g/dL (12.0-15.0); Immature Granulocyte Absolute 0.05 K/mm3 (0.00-0.031); Immature Granulocyte Percent A 0.9 % (0-0.5); Lymphocytes Absolute Auto 0.84 K/mm3 (0.9-3.2); Lymphocytes Percent Auto 14.8 % (18.3-44.2); Mean Corpuscular HGB Conc 34.8 g/dl (32-36); Mean Corpuscular Hemoglobin 31.2 pg (26-34); Mean Corpuscular Volume 89.5 fl (80-100); Monocytes Absolute Auto 0.3 K/mm3 (0.1-0.6); Monocytes Percent Auto 5.3 % (2.6-8.5); Neutrophils Absolute Auto 4.5 K/mm3 (1.3-6.7); Neutrophils Percent Auto 78.6 % (45.5-73.1); Platelet Count Result 185 k/mm3 (150-375); Potassium 3.5 mmol/L (3.4-5.0); Red Blood Count 4.75 M/mm3 (4.2-5.4); Red Cell Distribution Width 15.5 % (11.5-14.5); Sodium 137 mmol/L (137-145); White Blood Count 5.7 K/mm3 (4.5-10.0)
[2021-06-29 14:24] LABS: Lactic Acid Reflex 1.5 mmol/L (0.7-2.1)
[2021-06-29 14:40] LABS: Add Urine Microscopic? YES; Appearance Urine Clear (Clear); Bilirubin Urine Negative (Negative); Blood Urine Negative (Negative); Color Urine Yellow (Yellow); Glucose Urine UA Negative (Negative); Ketones Urine Trace mg/dL (Negative); Leukocyte Esterase Ur Negative LEU/UL (Negative); Mucus Urine Rare /lpf; Nitrate Urine Negative (Negative); Protein Urine 2+ mg/dL (Negative); RBC Urine 0-2 /hpf (0-2); Specific Grav Ur 1.018 (1.001-1.035); Squamous Epithelial Cell Urine Rare /hpf (Few); WBC Urine 0-3 /hpf
[2021-06-29 14:44] LABS: SARS-CoV-2 RNA PCR Positive
--- NOTE | 2021-06-29 15:44 | PC.NURSE ---
SIERRA Pino spoke with patient's . Per patient's patient was able to walk normally up until three weeks ago, he also reported that she was admitted to [place] recently post fall then sent to [facility] then discharged home. Once discharged home she was able to walk but then was weak again.
--- NOTE | 2021-06-29 17:57 | PC.NURSE ---
Patient care report called to jorge Arriaga RN. All questions answered at this time.
--- NOTE | 2021-06-29 18:07 | PC.NURSE ---
Equities Analyst updated patient's who called for an update. Per patient can not walk at all on her own.
--- NOTE | 2021-06-29 18:10 | PM.IMHP ---
H&P: HPI History of Present Illness Date/Time: 06/29/21 18:10 this is a 71-year-old female patient who resides with her Jose. According to the the patient has moments where she is confused and then she has other days where she is alert orientated x4. However he feels over the last 5 months she has been declining. The patient has been incontinent of urine and stool. The patient was found to have dried stool on her hands and under her nails as well as her lower extremities. The patient was also noted to have an abrasion to her right hip. The patient has a drain to her right lower quadrant and I did call her who stated that was her gallbladder tube. He stated that they had been draining gallstones out of that tube. The patient was found to be positive for COVID-19. Patient's chest x-ray was read as the following. 1. Multifocal left basilar airspace disease most consistent with pneumonia and atelectasis. 2. Moderate hiatal hernia. The patient was given a dose of Rocephin in the emergency room as well as azithromycin for pneumonia initially in the patient had the positive COVID test. The patient is being admitted to observation status on the date of service 06/29/2021. Chief Complaint: Confusion Review of Systems Review of Systems: All systems reviewed & are unremarkable except as noted in HPI and below Constitutional: Constitutional: Reports as per HPI and Reports no additional constitutional complaints Eyes: Eyes: Reports as per HPI and Reports no additional eye complaints ENT: Reports system reviewed and no additional complaints, except as documented and Reports Normal hearing present Cardiovascular: Cardiovascular: Reports no additional cardiovascular complaints Respiratory: Respiratory: Reports no additional respiratory complaints and Reports no additional respiratory complaints Gastrointestinal: Gastrointestinal: Reports as per HPI and Reports no additional gastrointestinal complaints Musculoskeletal: Musculoskeletal: Reports no additional musculoskeletal complaints Integumentary/Breasts: Skin/Breast: Reports system reviewed and no additional complaints, except as docu and Reports as per HPI Neurologic: Reports system reviewed and no additional complaints, except as documented, Reports as per HPI and Reports Normal hearing present Psychiatric: Psychiatric: Reports no additional psychiatric complaints and Reports as per HPI Endocrine: Endocrine: Reports no additional endocrine complaints Hematologic/Lymphatic: Hematologic/Lymphatic: Reports no additional hematologic/lymphatic complaints Allergic/Immunologic: Allergic/Immunologic: Reports no additional allergic/immunologic complaints [facility] Past Medical History Medical History Anxiety and depression Cholecystostomy drain infection GERD (gastroesophageal reflux disease) Hyperlipemia Hypertension Hypothyroid Surgical History Surgical History (Updated 06/29/21 @ 18:11 by Elsa Colvin NP) H/O: hysterectomy Family History Family History Father Acute myocardial infarction Other Unknown family medical history Social History Social History (Updated 06/29/21 @ 19:09 by Elsa Colvin NP) Social History: Patient seems to be confused and is currently a full code. The chart has Tracy salinas and Luis Aguilar as people to notify. The patient has 2 children. She is retired from working in a [employer] plant. The patient continues to smoke at home. No alcohol marijuana or illicit drugs. The is the durable power it generalist for healthcare. Code status full code Smoking packs per day: 1.5 Smoking cigarettes per day: 30.0 Smoking status: Current every day smoker Alcohol intake: unknown Substance use: unknown Gender identity (if verbalized by the patient): Female Spiritual care concerns: No Meds
--- NOTE | 2021-06-29 18:45 | ADMGEN ---
This patient, Anu Aguilar, was admitted to 3 [facility] Surg Room 322-01. Patient/family oriented to hospital policies and general routines including ID bracelet, bed and alarms, visiting hours, pain management, procedures, bathroom and other care routines, personal items, smoking policy, room service/diet, and visiting hours. Report recieved from KAREN Baker in ER. Patient is COVID (+) and has pneumonia. Information on how to activate the Rapid Response Team has been discussed. Patient/Family are encouraged to report perceived risks to care and to ask questions if they do not understand what they are told or what they should do.
[2021-06-30] VITALS: BP 136/81; PULSE 71; RESP 18; TEMP 36.1; O2SAT 95
[2021-06-30 04:00] VITALS: BP 151/90; PULSE 77; RESP 16; TEMP 36.4; O2SAT 96
[2021-06-30 07:22] LABS: Basophils Percent Auto 0.5 % (0.2-1.2); Eosinophils Percent Auto 0.7 % (0-4.4); Hematocrit 42.6 % (37.0-47.0); Hemoglobin 14.3 g/dL (12.0-15.0); Immature Granulocyte Absolute 0.04 K/mm3 (0.00-0.031); Immature Granulocyte Percent A 0.9 % (0-0.5); Lymphocytes Absolute Auto 0.82 K/mm3 (0.9-3.2); Lymphocytes Percent Auto 18.7 % (18.3-44.2); Mean Corpuscular HGB Conc 33.6 g/dl (32-36); Mean Corpuscular Hemoglobin 30.2 pg (26-34); Mean Corpuscular Volume 90.1 fl (80-100); Mean Platelet Volume 9.9 fl (7.4-10.4); Monocytes Absolute Auto 0.2 K/mm3 (0.1-0.6); Neutrophils Absolute Auto 3.3 K/mm3 (1.3-6.7); Neutrophils Percent Auto 74.2 % (45.5-73.1); Platelet Count Result 203 k/mm3 (150-375); Red Blood Count 4.73 M/mm3 (4.2-5.4); Red Cell Distribution Width 15.8 % (11.5-14.5); White Blood Count 4.4 K/mm3 (4.5-10.0)
[2021-06-30 07:34] LABS: Lactic Acid Reflex 1.4 mmol/L (0.7-2.1)
[2021-06-30 07:37] LABS: Alanine Aminotransferase 33 U/L (4-35); Albumin Level 4.4 g/dL (3.5-5.1); Alkaline Phosphatase 73 U/L (38-126); Anion Gap 13 mmol/L (8-16); Aspartate Amino Transferase 46 U/L (14-36); Blood Urea Nitrogen 16 mg/dL (7-17); Calcium 9.1 mg/dL (8.4-10.2); Carbon Dioxide 23 mmol/L (22-30); Chloride 102 mmol/L (98-107); Estimated CRCL calculation 25 ml/min; Estimated Glomerular Filt Rate 49; Glucose 79 mg/dL (65-110); Lactate Dehydrogenase 658 U/L (313-618); Magnesium 2.3 mg/dL (1.6-2.3); Potassium 3.3 mmol/L (3.4-5.0); Sodium 138 mmol/L (137-145)
--- NOTE | 2021-06-30 07:49 | PC.NURSE ---
K level 3.3, reported to provider Dmitriy Healy NP, provider to review labs and place orders.
[2021-06-30 08:00] VITALS: PULSE 77; RESP 16; O2SAT 96
[2021-06-30] MEDS: ENOXAPARIN 40 MG/0.4 ML SYRINGE SUB-Q (08:34)
--- NOTE | 2021-06-30 10:15 | P.PNIM_ITS ---
Progress Note: A&P Assessment and Plan (1) Pneumonia due to 2019-nCoV: Code(s): U07.1 - COVID-19; J12.82 - Pneumonia due to coronavirus disease 2018 Status: Acute Assessment and Plan: * COVID positive on 06/29/21 * Remains on room air * No indication for remdesivir or Decadron at this time * ABG shows pH 7.439, CO2 29.7, PO2 67.8, HCO3 19.7, O2 saturation 94.4, Compensated respiratory alkalosis 06/29/21 * Trend spo2 * Supplement oxygenation if indicated (2) Acute metabolic encephalopathy: Code(s): G93.41 - Metabolic encephalopathy Status: Acute Assessment and Plan: * Head CT shows hydrocephalus * Could be from COVID * UA does not indicate possible UTI * Could be medication induced, with the duloxetine * Hold duloxetine for now * TSH is also very high at 62.50 * Will probably need to increase levothyroxine * She seems to have a dementia (3) Anxiety and depression: Code(s): F41.9 - Anxiety disorder, unspecified; F32.9 - Major depressive disorder, single episode, unspecified Status: Acute Assessment and Plan: * Hold for now since she waxes and wanes * Restart when medically indicated (4) Hyperlipemia: Code(s): E78.5 - Hyperlipidemia, unspecified Status: Acute Assessment and Plan: * Continue atorvastatin (5) Hypertension: Code(s): I10 - Essential (primary) hypertension Status: Acute Assessment and Plan: * Current 151/90 * Continue home lisinopril 40mg PO, HCTZ 25 mg PO daily * Trend BP * Adjust therapy when indicated (6) Hypothyroidism: Code(s): E03.9 - Hypothyroidism, unspecified Status: Acute Assessment and Plan: * TSH 62.50 * T3, T4 pending * Continue levothyroxine * recheck in a couple of days * will need outpatient follow up (7) Noncompliance: Code(s): Z91.19 - Patient's noncompliance with other medical treatment and regimen Status: Acute Assessment and Plan: * Noted to have filled her medications for a long while * Her labs do you look like she is not taking her medications * No meds have been filled for a while some all way back in january Time Spent With Patient Time with patient: Greater than 35 minutes Subjective Date/time seen: 06/30/21 10:15 Interval history: Date/Time: 06/29/21 18:10 This is a 71-year-old female patient who resides with her Jose. According to the the patient has moments where she is confused and then she has other days where she is alert orientated x4. However he feels over the last 5 months she has been declining. The patient has been incontinent of urine and stool. The patient was found to have dried stool on her hands and under her nails as well as her lower extremities. The patient was also noted to have an abrasion to her right hip. The patient has a drain to her right lower quadrant and I did call her who stated that was her gallbladder tube. He stated that they had been draining gallstones out of that tube. The patient was found to be positive for COVID-19. Date/Time 06/30/21 10:15 Patient did not seem very oriented today. She could tell me she was at [place], however, she could not tell me the year, president, or month. She kept telling me that she was just very tired. She really did not have any complaints, however, she is a very poor historian. Review of Systems Isidro
--- NOTE | 2021-06-30 10:15 | PM.IMPN ---
Progress Note: A&P Assessment and Plan (1) Pneumonia due to 2019-nCoV: Code(s): U07.1 - COVID-19; J12.82 - Pneumonia due to coronavirus disease 2019 Status: Acute Assessment and Plan: COVID positive on 06/29/21 Remains on room air No indication for remdesivir or Decadron at this time ABG shows pH 7.439, CO2 29.7, PO2 67.8, HCO3 19.7, O2 saturation 94.4, Compensated respiratory alkalosis 06/29/21 Trend spo2 Supplement oxygenation if indicated (2) Acute metabolic encephalopathy: Code(s): G93.41 - Metabolic encephalopathy Status: Acute Assessment and Plan: Head CT shows hydrocephalus Could be from COVID UA does not indicate possible UTI Could be medication induced, with the duloxetine Hold duloxetine for now TSH is also very high at 62.50 Will probably need to increase levothyroxine She seems to have a dementia (3) Anxiety and depression: Code(s): F41.9 - Anxiety disorder, unspecified; F32.9 - Major depressive disorder, single episode, unspecified Status: Acute Assessment and Plan: Hold for now since she waxes and wanes Restart when medically indicated (4) Hyperlipemia: Code(s): E78.5 - Hyperlipidemia, unspecified Status: Acute Assessment and Plan: Continue atorvastatin (5) Hypertension: Code(s): I10 - Essential (primary) hypertension Status: Acute Assessment and Plan: Current 151/90 Continue home lisinopril 40mg PO, HCTZ 25 mg PO daily Trend BP Adjust therapy when indicated (6) Hypothyroidism: Code(s): E03.9 - Hypothyroidism, unspecified Status: Acute Assessment and Plan: TSH 62.50 T3, T4 pending Continue levothyroxine recheck in a couple of days will need outpatient follow up (7) Noncompliance: Code(s): Z91.19 - Patient's noncompliance with other medical treatment and regimen Status: Acute Assessment and Plan: Noted to have filled her medications for a long while Her labs do you look like she is not taking her medications No meds have been filled for a while some all way back in january Time Spent With Patient Time with patient: Greater than 35 minutes Subjective Date/time seen: 06/30/21 10:15 Interval history: Date/Time: 06/29/21 18:10 This is a 71-year-old female patient who resides with her Jose. According to the the patient has moments where she is confused and then she has other days where she is alert orientated x4. However he feels over the last 5 months she has been declining. The patient has been incontinent of urine and stool. The patient was found to have dried stool on her hands and under her nails as well as her lower extremities. The patient was also noted to have an abrasion to her right hip. The patient has a drain to her right lower quadrant and I did call her who stated that was her gallbladder tube. He stated that they had been draining gallstones out of that tube. The patient was found to be positive for COVID-19. Date/Time 06/30/21 10:15 Patient did not seem very oriented today. She could tell me she was at [place], however, she could not tell me the year, president, or month. She kept telling me that she was just very tired. She really did not have any complaints, however, she is a very poor historian. Review of Systems Review of Systems: All systems reviewed & are unremarkable except as noted in HPI and below Exam Const: General: cooperative, ill appearing and poor hygiene Nutritional Appearance: average body habitus Orientation/consciousness: oriented to person Limitations: altered mental status HENMT: Head: normal to inspection, No palpable skull fracture present, normocephalic and atraumatic Ears: hearing grossly normal bilaterally General nose exam: Normal external nose present Eyes: General: appearance normal, both eyes
[2021-06-30 10:24] LABS: Free T4 Free Thyroxine Reflex < 0.07 ng/dL (0.78-2.19)
[2021-06-30] MEDS: POTASSIUM CHLORIDE 20 MEQ TABLET 40 MEQ PO (11:22)
[2021-06-30 14:00] VITALS: BP 112/71; PULSE 77; RESP 20; TEMP 36.6; O2SAT 95
[2021-06-30 20:00] VITALS: PULSE 77; RESP 20; O2SAT 95
[2021-06-30 22:00] VITALS: BP 140/94; PULSE 76; RESP 16; TEMP 36.4; O2SAT 94
[2021-07-01] VITALS (8 sets, daily range): BP systolic 115–135; BP diastolic 78–93; PULSE 67–75; RESP 16–19; TEMP 35.8–36.3; O2SAT 93–97; BMI 13.3
[2021-07-01 06:54] LABS: Basophils Percent Auto 0.3 % (0.2-1.2); Eosinophils Percent Auto 1.1 % (0-4.4); Hematocrit 38.3 % (37.0-47.0); Immature Granulocyte Absolute 0.03 K/mm3 (0.00-0.031); Immature Granulocyte Percent A 0.8 % (0-0.5); Lymphocytes Absolute Auto 0.86 K/mm3 (0.9-3.2); Lymphocytes Percent Auto 24.4 % (18.3-44.2); Mean Corpuscular HGB Conc 33.9 g/dl (32-36); Mean Corpuscular Hemoglobin 30.4 pg (26-34); Mean Corpuscular Volume 89.5 fl (80-100); Mean Platelet Volume 9.8 fl (7.4-10.4); Monocytes Absolute Auto 0.2 K/mm3 (0.1-0.6); Monocytes Percent Auto 5.7 % (2.6-8.5); Neutrophils Absolute Auto 2.4 K/mm3 (1.3-6.7); Neutrophils Percent Auto 67.7 % (45.5-73.1); Platelet Count Result 210 k/mm3 (150-375); Red Blood Count 4.28 M/mm3 (4.2-5.4); Red Cell Distribution Width 15.8 % (11.5-14.5); White Blood Count 3.5 K/mm3 (4.5-10.0)
[2021-07-01 07:20] LABS: Alanine Aminotransferase 24 U/L (4-35); Albumin Level 3.7 g/dL (3.5-5.1); Alkaline Phosphatase 56 U/L (38-126); Anion Gap 9 mmol/L (8-16); Aspartate Amino Transferase 33 U/L (14-36); Bilirubin,Total 0.8 mg/dL (0.2-1.3); Blood Urea Nitrogen 18 mg/dL (7-17); CRP 3.2 mg/dL (<1.0); Calcium 8.8 mg/dL (8.4-10.2); Carbon Dioxide 22 mmol/L (22-30); Chloride 107 mmol/L (98-107); Estimated CRCL calculation 30 ml/min; Estimated Glomerular Filt Rate > 60; Glucose 83 mg/dL (65-110); Lactate Dehydrogenase 524 U/L (313-618); Magnesium 2.2 mg/dL (1.6-2.3); Potassium 3.4 mmol/L (3.4-5.0); Sodium 138 mmol/L (137-145)
[2021-07-01 07:26] LABS: D Dimer 1.65 ug/mL (<0.48)
--- NOTE | 2021-07-01 08:30 | P.PNIM_ITS ---
Progress Note: A&P Assessment and Plan (1) Pneumonia due to 2019-nCoV: Code(s): U07.1 - COVID-19; J12.82 - Pneumonia due to coronavirus disease 2019 Status: Acute Assessment and Plan: * COVID positive on 06/29/21 * Remains on room air * No indication for remdesivir or Decadron at this time * ABG shows pH 7.439, CO2 29.7, PO2 67.8, HCO3 19.7, O2 saturation 94.4, Compensated respiratory alkalosis 06/29/21 * Trend spo2 * Supplement oxygenation if indicated * Inflammatory markers Ferritin 351, LDH 524, CRP 3.2, dimer 1.65 * Chest xray multifocal left basilar airspace disease most consistent with pneumonia and atelectasis, Moderate hiatal hernia. (2) Acute metabolic encephalopathy: Code(s): G93.41 - Metabolic encephalopathy Status: Acute Assessment and Plan: * Head CT shows hydrocephalus * Could be from COVID * UA does not indicate possible UTI * Could be medication induced, with the duloxetine * Continue duloxetine at this time * TSH is also very high at 62.50 * Will probably need to increase levothyroxine * She seems to have a dementia (3) Anxiety and depression: Code(s): F41.9 - Anxiety disorder, unspecified; F32.9 - Major depressive disorder, single episode, unspecified Status: Acute Assessment and Plan: * Hold for now since she waxes and wanes * Restart when medically indicated (4) Hyperlipemia: Code(s): E78.5 - Hyperlipidemia, unspecified Status: Acute Assessment and Plan: * Continue atorvastatin (5) Hypertension: Code(s): I10 - Essential (primary) hypertension Status: Acute Assessment and Plan: * Current 130/90 * Continue home lisinopril 40mg PO, HCTZ 25 mg PO daily * Trend BP * Adjust therapy when indicated (6) Hypothyroidism: Code(s): E03.9 - Hypothyroidism, unspecified Status: Acute Assessment and Plan: * TSH 62.50 * T4 <0.07 * Continue levothyroxine * recheck in a couple of days * will need outpatient follow up (7) Noncompliance: Code(s): Z91.19 - Patient's noncompliance with other medical treatment and regimen Status: Acute Assessment and Plan: * Noted to have filled her medications for a long while * Her labs do you look like she is not taking her medications * No meds have been filled for a while some all way back in january (8) Elevated d-dimer: Code(s): R79.89 - Other specified abnormal findings of blood chemistry Status: Acute Assessment and Plan: * D.Dimer 1.65 * Get CTA to R/O PE * No tachycardia, SOB, or chest pain * Probably not a PE Time Spent With Patient Time with patient: Greater than 35 minutes Subjective Date/time seen: 07/01/21 0820 Interval history: Date/Time: 06/29/21 18:10 This is a 71-year-old female patient who resides with her Jose. According to the the patient has moments where she is confused and then she has other days where she is alert orientated x4. However he feels over the last 5 months she has been declining. The patient has been incontinent of urine and stool. The patient was found to have dried stool on her hands and under her nails as well as her lower extremities. The patient was also noted to have an abrasion to her right hip. The patient has a drain to her right lower quadrant and I did call her who stated that was her clem
--- NOTE | 2021-07-01 08:30 | PM.IMPN ---
Progress Note: A&P Assessment and Plan (1) Pneumonia due to 2019-nCoV: Code(s): U07.1 - COVID-19; J12.82 - Pneumonia due to coronavirus disease 2018 Status: Acute Assessment and Plan: COVID positive on 06/29/21 Remains on room air No indication for remdesivir or Decadron at this time ABG shows pH 7.439, CO2 29.7, PO2 67.8, HCO3 19.7, O2 saturation 94.4, Compensated respiratory alkalosis 06/29/21 Trend spo2 Supplement oxygenation if indicated Inflammatory markers Ferritin 351, LDH 524, CRP 3.2, dimer 1.65 Chest xray multifocal left basilar airspace disease most consistent with pneumonia and atelectasis, Moderate hiatal hernia. (2) Acute metabolic encephalopathy: Code(s): G93.41 - Metabolic encephalopathy Status: Acute Assessment and Plan: Head CT shows hydrocephalus Could be from COVID UA does not indicate possible UTI Could be medication induced, with the duloxetine Continue duloxetine at this time TSH is also very high at 62.50 Will probably need to increase levothyroxine She seems to have a dementia (3) Anxiety and depression: Code(s): F41.9 - Anxiety disorder, unspecified; F32.9 - Major depressive disorder, single episode, unspecified Status: Acute Assessment and Plan: Hold for now since she waxes and wanes Restart when medically indicated (4) Hyperlipemia: Code(s): E78.5 - Hyperlipidemia, unspecified Status: Acute Assessment and Plan: Continue atorvastatin (5) Hypertension: Code(s): I10 - Essential (primary) hypertension Status: Acute Assessment and Plan: Current 130/90 Continue home lisinopril 40mg PO, HCTZ 25 mg PO daily Trend BP Adjust therapy when indicated (6) Hypothyroidism: Code(s): E03.9 - Hypothyroidism, unspecified Status: Acute Assessment and Plan: TSH 62.50 T4 <0.07 Continue levothyroxine recheck in a couple of days will need outpatient follow up (7) Noncompliance: Code(s): Z91.19 - Patient's noncompliance with other medical treatment and regimen Status: Acute Assessment and Plan: Noted to have filled her medications for a long while Her labs do you look like she is not taking her medications No meds have been filled for a while some all way back in january (8) Elevated d-dimer: Code(s): R79.89 - Other specified abnormal findings of blood chemistry Status: Acute Assessment and Plan: D.Dimer 1.65 Get CTA to R/O PE No tachycardia, SOB, or chest pain Probably not a PE Time Spent With Patient Time with patient: Greater than 35 minutes Subjective Date/time seen: 07/01/21 0820 Interval history: Date/Time: 06/29/21 18:10 This is a 71-year-old female patient who resides with her Jose. According to the the patient has moments where she is confused and then she has other days where she is alert orientated x4. However he feels over the last 5 months she has been declining. The patient has been incontinent of urine and stool. The patient was found to have dried stool on her hands and under her nails as well as her lower extremities. The patient was also noted to have an abrasion to her right hip. The patient has a drain to her right lower quadrant and I did call her who stated that was her gallbladder tube. He stated that they had been draining gallstones out of that tube. The patient was found to be positive for COVID-19. Date/Time 06/30/21 10:15 Patient did not seem very oriented today. She could tell me she was at [place], however, she could not tell me the year, president, or month. She kept telling me that she was just very tired. She really did not have any complaints, however, she is a very poor historian. Date/Time 07/01/21 0830 Patient is lying in bed. She did sit up in look at me and say she was ready to
[2021-07-01] MEDS: ENOXAPARIN 40 MG/0.4 ML SYRINGE SUB-Q (08:43)
[2021-07-01] MEDS: hydroCHLOROthiazide 25 MG TABLET PO (15:28)
[2021-07-01] MEDS: lisinopriL 20 MG TABLET 40 MG PO (15:28)
[2021-07-01] MEDS: ATORVASTATIN 20 MG TABLET PO (15:28)
[2021-07-01] MEDS: polyethylene glycoL 3350 17 GM POWD.PACK PO (15:28)
[2021-07-01] MEDS: LEVOTHYROXINE SODIUM 150 MCG TABLET PO (15:28)
[2021-07-01] MEDS: DULoxetine HCL 30 MG CAPSULE.DR PO (21:36)
--- NOTE | 2021-07-01 22:55 | PC.NURSE ---
Spoke with Dr. Bonilla pt has positive blood cultures. orders to have pharmacy dose Vancomycin.
[2021-07-02] VITALS (8 sets, daily range): BP systolic 84–134; BP diastolic 47–87; PULSE 60–699; RESP 16–22; TEMP 36–36.6; O2SAT 95–97
[2021-07-02] MEDS: VANCOMYCIN HCL 500 MG in DEXTROSE 5% 100 ML IVPB (03:12)
[2021-07-02] MEDS: LEVOTHYROXINE SODIUM 150 MCG TABLET PO (05:39)
[2021-07-02 07:30] LABS: Basophils Percent Auto 0.5 % (0.2-1.2); Eosinophils Absolute Auto 0.1 K/mm3 (0-0.3); Eosinophils Percent Auto 1.4 % (0-4.4); Hemoglobin 13.4 g/dL (12.0-15.0); Immature Granulocyte Absolute 0.05 K/mm3 (0.00-0.031); Immature Granulocyte Percent A 1.2 % (0-0.5); Lymphocytes Percent Auto 20.7 % (18.3-44.2); Mean Corpuscular HGB Conc 33.5 g/dl (32-36); Mean Corpuscular Hemoglobin 30.1 pg (26-34); Mean Corpuscular Volume 89.9 fl (80-100); Mean Platelet Volume 9.7 fl (7.4-10.4); Monocytes Absolute Auto 0.3 K/mm3 (0.1-0.6); Monocytes Percent Auto 7.4 % (2.6-8.5); Neutrophils Percent Auto 68.8 % (45.5-73.1); Platelet Count Result 244 k/mm3 (150-375); Red Blood Count 4.45 M/mm3 (4.2-5.4); Red Cell Distribution Width 15.9 % (11.5-14.5); White Blood Count 4.3 K/mm3 (4.5-10.0)
[2021-07-02 07:44] LABS: Alanine Aminotransferase 21 U/L (4-35); Albumin Level 3.9 g/dL (3.5-5.1); Alkaline Phosphatase 59 U/L (38-126); Anion Gap 9 mmol/L (8-16); Aspartate Amino Transferase 27 U/L (14-36); Bilirubin,Total 0.7 mg/dL (0.2-1.3); Blood Urea Nitrogen 17 mg/dL (7-17); Calcium 8.9 mg/dL (8.4-10.2); Carbon Dioxide 23 mmol/L (22-30); Chloride 106 mmol/L (98-107); D Dimer 1.58 ug/mL (<0.48); Estimated CRCL calculation 27 ml/min; Estimated Glomerular Filt Rate 55; Glucose 90 mg/dL (65-110); Lactate Dehydrogenase 492 U/L (313-618); Lipase 209 U/L (23-300); Magnesium 2.2 mg/dL (1.6-2.3); Sodium 138 mmol/L (137-145)
--- NOTE | 2021-07-02 08:30 | PM.DS ---
DS: Admitting Diagnosis Discharge Date 07/03/2021 0830 Admitting Diagnosis COVID-19/Hypothyroidism/Acute metabolic encephalopathy DS: Discharge Diagnosis Discharge Diagnosis (1) Pneumonia due to 2019-nCoV: Code(s): U07.1 - COVID-19; J12.82 - Pneumonia due to coronavirus disease 2018 Status: Acute Assessment and Plan: COVID positive on 06/29/21 Remains on room air No indication for remdesivir or Decadron at this time ABG shows pH 7.439, CO2 29.7, PO2 67.8, HCO3 19.7, O2 saturation 94.4, Compensated respiratory alkalosis 06/29/21 Trend spo2 Supplement oxygenation if indicated Inflammatory markers Ferritin 296, LDH 468, CRP 1.5, dimer 1.21 Chest xray multifocal left basilar airspace disease most consistent with pneumonia and atelectasis, Moderate hiatal hernia. (2) Acute metabolic encephalopathy: Code(s): G93.41 - Metabolic encephalopathy Status: Acute Assessment and Plan: Head CT shows hydrocephalus Could be from COVID UA does not indicate possible UTI Could be medication induced, with the duloxetine Continue duloxetine at this time TSH is also very high at 62.50 Will probably need to increase levothyroxine She seems to have a dementia (3) Anxiety and depression: Code(s): F41.9 - Anxiety disorder, unspecified; F32.9 - Major depressive disorder, single episode, unspecified Status: Acute Assessment and Plan: Hold for now since she waxes and wanes Restart when medically indicated (4) Hyperlipemia: Code(s): E78.5 - Hyperlipidemia, unspecified Status: Acute Assessment and Plan: Continue atorvastatin (5) Hypertension: Code(s): I10 - Essential (primary) hypertension Status: Acute Assessment and Plan: Current 134/87 Continue home lisinopril 40mg PO, HCTZ 25 mg PO daily Trend BP Adjust therapy when indicated (6) Hypothyroidism: Code(s): E03.9 - Hypothyroidism, unspecified Status: Acute Assessment and Plan: TSH 62.50 T4 <0.07 Continue levothyroxine recheck in a couple of days will need outpatient follow up (7) Noncompliance: Code(s): Z91.19 - Patient's noncompliance with other medical treatment and regimen Status: Acute Assessment and Plan: Noted to have filled her medications for a long while Her labs do you look like she is not taking her medications No meds have been filled for a while some all way back in january (8) Elevated d-dimer: Code(s): R79.89 - Other specified abnormal findings of blood chemistry Status: Acute Assessment and Plan: D.Dimer 1.21 Get CTA to R/O PE No tachycardia, SOB, or chest pain Probably not a PE DS: Summary Hospital Course Hospital Course: Patient is a 71-year-old female with a past medical history of GERD, hyperlipidemia, hypertension, hypothyroidism who presented to the ED for evacuation of confusion. Upon arrival patient was noted to be little stoic. PO2 was noted to be low at 67.8%. Patient was on room air and has remained on room air the entire visit. Patient was also noted to be COVID positive. Patient's medications have been restarted and patient is alert oriented x2 to person and place. After much review was noted the patient has been noncompliant at home. Patient lives at home with her and her states that she was doing her own medications however patient has not been out of bed for quite a while. Patient still has the cholecystectomy tube placed in her right upper quadrant. Inflammatory markers have been on trend since admission and patient has been stable. Renal function has been stable potassium has been low and replaced as indicated patient states that she feels okay and she is ready to go home however she will go on to rehab. Vital signs have been stable patient denies chest pain, shortness of breath, nausea vo
--- NOTE | 2021-07-02 08:30 | P.DS_ITS ---
DS: Admitting Diagnosis Discharge Date 07/03/2021 0830 Admitting Diagnosis COVID-19/Hypothyroidism/Acute metabolic encephalopathy DS: Discharge Diagnosis Discharge Diagnosis (1) Pneumonia due to 2019-nCoV: Code(s): U07.1 - COVID-19; J12.82 - Pneumonia due to coronavirus disease 2019 Status: Acute Assessment and Plan: * COVID positive on 06/29/21 * Remains on room air * No indication for remdesivir or Decadron at this time * ABG shows pH 7.439, CO2 29.7, PO2 67.8, HCO3 19.7, O2 saturation 94.4, Compensated respiratory alkalosis 06/29/21 * Trend spo2 * Supplement oxygenation if indicated * Inflammatory markers Ferritin 296, LDH 468, CRP 1.5, dimer 1.21 * Chest xray multifocal left basilar airspace disease most consistent with pneumonia and atelectasis, Moderate hiatal hernia. (2) Acute metabolic encephalopathy: Code(s): G93.41 - Metabolic encephalopathy Status: Acute Assessment and Plan: * Head CT shows hydrocephalus * Could be from COVID * UA does not indicate possible UTI * Could be medication induced, with the duloxetine * Continue duloxetine at this time * TSH is also very high at 62.50 * Will probably need to increase levothyroxine * She seems to have a dementia (3) Anxiety and depression: Code(s): F41.9 - Anxiety disorder, unspecified; F32.9 - Major depressive disorder, single episode, unspecified Status: Acute Assessment and Plan: * Hold for now since she waxes and wanes * Restart when medically indicated (4) Hyperlipemia: Code(s): E78.5 - Hyperlipidemia, unspecified Status: Acute Assessment and Plan: * Continue atorvastatin (5) Hypertension: Code(s): I10 - Essential (primary) hypertension Status: Acute Assessment and Plan: * Current 134/87 * Continue home lisinopril 40mg PO, HCTZ 25 mg PO daily * Trend BP * Adjust therapy when indicated (6) Hypothyroidism: Code(s): E03.9 - Hypothyroidism, unspecified Status: Acute Assessment and Plan: * TSH 62.50 * T4 <0.07 * Continue levothyroxine * recheck in a couple of days * will need outpatient follow up (7) Noncompliance: Code(s): Z91.19 - Patient's noncompliance with other medical treatment and regimen Status: Acute Assessment and Plan: * Noted to have filled her medications for a long while * Her labs do you look like she is not taking her medications * No meds have been filled for a while some all way back in january (8) Elevated d-dimer: Code(s): R79.89 - Other specified abnormal findings of blood chemistry Status: Acute Assessment and Plan: * D.Dimer 1.21 * Get CTA to R/O PE * No tachycardia, SOB, or chest pain * Probably not a PE DS: Summary Hospital Course Hospital Course: Patient is a 71-year-old female with a past medical history of GERD, hyperlipidemia, hypertension, hypothyroidism who presented to the ED for evacuation of confusion. Upon arrival patient was noted to be little stoic. PO2 was noted to be low at 67.8%. Patient was on room air and has remained on room air the entire visit. Patient was also noted to be COVID positive. Patient's medications have been restarted and patient is alert oriented x2 to person and place. After much review was noted the patient has been noncompliant at home. Patient lives at home with her husdede
[2021-07-02] MEDS: DULoxetine HCL 30 MG CAPSULE.DR PO ×2 (08:56→20:23)
[2021-07-02] MEDS: polyethylene glycoL 3350 17 GM POWD.PACK PO (08:56)
[2021-07-02] MEDS: hydroCHLOROthiazide 25 MG TABLET PO (08:56)
[2021-07-02] MEDS: lisinopriL 20 MG TABLET 40 MG PO (08:56)
[2021-07-02] MEDS: ENOXAPARIN 40 MG/0.4 ML SYRINGE SUB-Q (08:56)
[2021-07-02] MEDS: ATORVASTATIN 20 MG TABLET PO (08:57)
--- NOTE | 2021-07-02 09:15 | P.PNIM_ITS ---
Progress Note: A&P Assessment and Plan (1) Pneumonia due to 2019-nCoV: Code(s): U07.1 - COVID-19; J12.82 - Pneumonia due to coronavirus disease 2019 Status: Acute Assessment and Plan: * COVID positive on 06/29/21 * Remains on room air * No indication for remdesivir or Decadron at this time * ABG shows pH 7.439, CO2 29.7, PO2 67.8, HCO3 19.7, O2 saturation 94.4, Compensated respiratory alkalosis 06/29/21 * Trend spo2 * Supplement oxygenation if indicated * Inflammatory markers Ferritin 369, LDH 492, CRP 2.0, dimer 1.58 * Chest xray multifocal left basilar airspace disease most consistent with pneumonia and atelectasis, Moderate hiatal hernia. (2) Acute metabolic encephalopathy: Code(s): G93.41 - Metabolic encephalopathy Status: Acute Assessment and Plan: * Head CT shows hydrocephalus * Could be from COVID * UA does not indicate possible UTI * Could be medication induced, with the duloxetine * Continue duloxetine at this time * TSH is also very high at 62.50 * Will probably need to increase levothyroxine * She seems to have a dementia (3) Anxiety and depression: Code(s): F41.9 - Anxiety disorder, unspecified; F32.9 - Major depressive disorder, single episode, unspecified Status: Acute Assessment and Plan: * Hold for now since she waxes and wanes * Restart when medically indicated (4) Hyperlipemia: Code(s): E78.5 - Hyperlipidemia, unspecified Status: Acute Assessment and Plan: * Continue atorvastatin (5) Hypertension: Code(s): I10 - Essential (primary) hypertension Status: Acute Assessment and Plan: * Current 131/82 * Continue home lisinopril 40mg PO, HCTZ 25 mg PO daily * Trend BP * Adjust therapy when indicated (6) Hypothyroidism: Code(s): E03.9 - Hypothyroidism, unspecified Status: Acute Assessment and Plan: * TSH 62.50 * T4 <0.07 * Continue levothyroxine * recheck in a couple of days * will need outpatient follow up (7) Noncompliance: Code(s): Z91.19 - Patient's noncompliance with other medical treatment and regimen Status: Acute Assessment and Plan: * Noted to have filled her medications for a long while * Her labs do you look like she is not taking her medications * No meds have been filled for a while some all way back in january (8) Elevated d-dimer: Code(s): R79.89 - Other specified abnormal findings of blood chemistry Status: Acute Assessment and Plan: * D.Dimer 1.65 * Get CTA to R/O PE * No tachycardia, SOB, or chest pain * Probably not a PE Time Spent With Patient Time with patient: Greater than 35 minutes Subjective Date/time seen: 07/02/21 0915 Interval history: Date/Time: 06/29/21 18:10 This is a 71-year-old female patient who resides with her Jose. According to the the patient has moments where she is confused and then she has other days where she is alert orientated x4. However he feels over the last 5 months she has been declining. The patient has been incontinent of urine and stool. The patient was found to have dried stool on her hands and under her nails as well as her lower extremities. The patient was also noted to have an abrasion to her right hip. The patient has a drain to her right lower quadrant and I did call her who stated that was her clem
--- NOTE | 2021-07-02 09:15 | PM.IMPN ---
Progress Note: A&P Assessment and Plan (1) Pneumonia due to 2019-nCoV: Code(s): U07.1 - COVID-19; J12.82 - Pneumonia due to coronavirus disease 2018 Status: Acute Assessment and Plan: COVID positive on 06/29/21 Remains on room air No indication for remdesivir or Decadron at this time ABG shows pH 7.439, CO2 29.7, PO2 67.8, HCO3 19.7, O2 saturation 94.4, Compensated respiratory alkalosis 06/29/21 Trend spo2 Supplement oxygenation if indicated Inflammatory markers Ferritin 369, LDH 492, CRP 2.0, dimer 1.58 Chest xray multifocal left basilar airspace disease most consistent with pneumonia and atelectasis, Moderate hiatal hernia. (2) Acute metabolic encephalopathy: Code(s): G93.41 - Metabolic encephalopathy Status: Acute Assessment and Plan: Head CT shows hydrocephalus Could be from COVID UA does not indicate possible UTI Could be medication induced, with the duloxetine Continue duloxetine at this time TSH is also very high at 62.50 Will probably need to increase levothyroxine She seems to have a dementia (3) Anxiety and depression: Code(s): F41.9 - Anxiety disorder, unspecified; F32.9 - Major depressive disorder, single episode, unspecified Status: Acute Assessment and Plan: Hold for now since she waxes and wanes Restart when medically indicated (4) Hyperlipemia: Code(s): E78.5 - Hyperlipidemia, unspecified Status: Acute Assessment and Plan: Continue atorvastatin (5) Hypertension: Code(s): I10 - Essential (primary) hypertension Status: Acute Assessment and Plan: Current 131/82 Continue home lisinopril 40mg PO, HCTZ 25 mg PO daily Trend BP Adjust therapy when indicated (6) Hypothyroidism: Code(s): E03.9 - Hypothyroidism, unspecified Status: Acute Assessment and Plan: TSH 62.50 T4 <0.07 Continue levothyroxine recheck in a couple of days will need outpatient follow up (7) Noncompliance: Code(s): Z91.19 - Patient's noncompliance with other medical treatment and regimen Status: Acute Assessment and Plan: Noted to have filled her medications for a long while Her labs do you look like she is not taking her medications No meds have been filled for a while some all way back in january (8) Elevated d-dimer: Code(s): R79.89 - Other specified abnormal findings of blood chemistry Status: Acute Assessment and Plan: D.Dimer 1.65 Get CTA to R/O PE No tachycardia, SOB, or chest pain Probably not a PE Time Spent With Patient Time with patient: Greater than 35 minutes Subjective Date/time seen: 07/02/21 0915 Interval history: Date/Time: 06/29/21 18:10 This is a 71-year-old female patient who resides with her Jose. According to the the patient has moments where she is confused and then she has other days where she is alert orientated x4. However he feels over the last 5 months she has been declining. The patient has been incontinent of urine and stool. The patient was found to have dried stool on her hands and under her nails as well as her lower extremities. The patient was also noted to have an abrasion to her right hip. The patient has a drain to her right lower quadrant and I did call her who stated that was her gallbladder tube. He stated that they had been draining gallstones out of that tube. The patient was found to be positive for COVID-19. Date/Time 06/30/21 10:15 Patient did not seem very oriented today. She could tell me she was at [employer], however, she could not tell me the year, president, or month. She kept telling me that she was just very tired. She really did not have any complaints, however, she is a very poor historian. Date/Time 07/01/21 0830 Patient is lying in bed. She did sit up in look at me and say she was ready to
[2021-07-02] MEDS: POTASSIUM CHLORIDE 20 MEQ TABLET 40 MEQ PO (16:22)
[2021-07-03] VITALS: BP 126/82; PULSE 55; RESP 18; TEMP 36.3; O2SAT 97
[2021-07-03 04:00] VITALS: BP 134/87; PULSE 61; RESP 18; TEMP 36.3; O2SAT 96
[2021-07-03 07:14] LABS: Basophils Percent Auto 0.5 % (0.2-1.2); Eosinophils Absolute Auto 0.1 K/mm3 (0-0.3); Eosinophils Percent Auto 1.2 % (0-4.4); Hematocrit 36.3 % (37.0-47.0); Immature Granulocyte Absolute 0.07 K/mm3 (0.00-0.031); Immature Granulocyte Percent A 1.6 % (0-0.5); Lymphocytes Absolute Auto 0.99 K/mm3 (0.9-3.2); Lymphocytes Percent Auto 22.8 % (18.3-44.2); Mean Corpuscular HGB Conc 33.1 g/dl (32-36); Mean Corpuscular Hemoglobin 30.2 pg (26-34); Mean Corpuscular Volume 91.4 fl (80-100); Mean Platelet Volume 9.7 fl (7.4-10.4); Monocytes Absolute Auto 0.3 K/mm3 (0.1-0.6); Monocytes Percent Auto 6.7 % (2.6-8.5); Neutrophils Absolute Auto 2.9 K/mm3 (1.3-6.7); Neutrophils Percent Auto 67.2 % (45.5-73.1); Platelet Count Result 243 k/mm3 (150-375); Red Blood Count 3.97 M/mm3 (4.2-5.4); Red Cell Distribution Width 15.9 % (11.5-14.5); White Blood Count 4.3 K/mm3 (4.5-10.0)
[2021-07-03 07:28] LABS: Alanine Aminotransferase 18 U/L (4-35); Albumin Level 3.8 g/dL (3.5-5.1); Alkaline Phosphatase 56 U/L (38-126); Anion Gap 9 mmol/L (8-16); Aspartate Amino Transferase 27 U/L (14-36); Bilirubin,Total 0.8 mg/dL (0.2-1.3); Blood Urea Nitrogen 18 mg/dL (7-17); CRP 1.5 mg/dL (<1.0); Calcium 8.9 mg/dL (8.4-10.2); Carbon Dioxide 24 mmol/L (22-30); Chloride 103 mmol/L (98-107); Estimated CRCL calculation 38 ml/min; Estimated Glomerular Filt Rate 55; Glucose 85 mg/dL (65-110); Lactate Dehydrogenase 468 U/L (313-618); Magnesium 2.1 mg/dL (1.6-2.3); Sodium 136 mmol/L (137-145)
[2021-07-03 07:31] LABS: D Dimer 1.21 ug/mL (<0.48)
[2021-07-03 08:00] VITALS: BP 118/81; PULSE 62; RESP 14; TEMP 36; O2SAT 96
[2021-07-03 08:22] LABS: Platelet Estimate Adequate (Adequate)
[2021-07-03 08:23] LABS: Atypical Lymphocytes Present
[2021-07-03] MEDS: ATORVASTATIN 20 MG TABLET PO (09:46)
[2021-07-03] MEDS: LEVOTHYROXINE SODIUM 150 MCG TABLET PO (09:46)
[2021-07-03] MEDS: DULoxetine HCL 30 MG CAPSULE.DR PO (09:46)
[2021-07-03] MEDS: lisinopriL 20 MG TABLET 40 MG PO (09:47)
[2021-07-03] MEDS: hydroCHLOROthiazide 25 MG TABLET PO (09:47)
[2021-07-03] MEDS: POTASSIUM CHLORIDE INJ 40 MEQ in SODIUM CHLORIDE 0.9% IV 500 ML 130 MEQ IVPB (10:45)
[2021-07-03 12:00] VITALS: BP 119/83; PULSE 61; RESP 16; TEMP 36.3; O2SAT 95
== END 2021-07-03 16:46 | DRG 177 ==
LOC: ANHED 15:34 → ANH3MEDSUR 16:19
PROVIDERS: Nurse Practitioner; Admitting Provider Internal Medicine; Emergency Provider Emergency Medicine; PCP Internal Medicine; Visit Provider Nurse Practitioner
DX: U07.1 COVID-19 (principal); J12.82 Pneumonia due to coronavirus disease 2019; G93.41 Metabolic encephalopathy; N17.9 Acute kidney failure, unspecified; T43.215A Adverse effect of selective serotonin and norepinephrine reuptake inhibitors, initial encounter; F03.90 Unspecified dementia, unspecified severity, without behavioral disturbance, psychotic disturbance, mood disturbance, and anxiety; F41.9 Anxiety disorder, unspecified; F32.9 Major depressive disorder, single episode, unspecified; E78.5 Hyperlipidemia, unspecified; I10 Essential (primary) hypertension; E03.9 Hypothyroidism, unspecified; R79.89 Other specified abnormal findings of blood chemistry; K21.9 Gastro-esophageal reflux disease without esophagitis; F17.210 Nicotine dependence, cigarettes, uncomplicated; Z91.19 Patient's noncompliance with other medical treatment and regimen; Z90.710 Acquired absence of both cervix and uterus
CPT/HCPCS: 36415; 36600; 51701; 70450; 71045; 71275; 80053; 81001; 82728; 82805; 83605; 83615; 83690; 83735; 84100; 84439; 84443; 85025; 85380; 86140; 87040; 87147; 87181; 87186; 93005; 96365; 96367; 96372; 97161; 97165; 97530; 97535; 99285; A9270; C9803; G0378; J0456; J0696; J1650; J3370; J3480; J7040; Q9967; U0003; U0005

== ENCOUNTER 2023-07-20 13:01 | Inpatient (IN) | payer MEDICARE, SELFPAY ==
[2023-07-20] VITALS (12 sets, daily range): BP systolic 135–163; BP diastolic 97–106; PULSE 59–69; RESP 14–16; TEMP 35.7; O2SAT 94–100; BMI 19.5
--- NOTE | ~2023-07-20 | CT_ITS ---
EXAMINATION: CT brain wo con DATE: 07/20/2023 18:44 INDICATION: AMS . TECHNIQUE: Computed tomography (CT) of the head was performed without intravenous contrast. The mA wa s adjusted according to patient size. Iterative reconstruction technique was employed. The dose-lengt h product was 1362.00 mGy-cm. COMPARISON: 06/30/2021. FINDINGS: No acute intracranial hemorrhage or extra-axial fluid collection. No hydrocephalus, mass, or herniation. No acute ischemic infarct. Unremarkable dural venous sinus attenuation. No acute osseous abnormality. Complete opacification of the right sphenoid, aerated secretions in the bilateral sphenoids, mucosal thickening and retention cysts/polyps in the remaining paranasal sinuses. Bilateral large mastoid eff usions with fluid in the middle ear spaces. Moderate atrophy and severe chronic white matter change. Atherosclerotic intracranial calcification. Bilateral lens replacements. IMPRESSION: No acute intracranial process. Possible acute sphenoid sinusitis. Complete opacification of the bilateral mastoid air cells, with middle ear fluid bilaterally, correla te for clinical findings of otomastoiditis. Reviewed, dictated and finalized at location K. WORKER FOREMAN IMPRESSION: No acute intracranial process. Possible acute sphenoid sinusitis. Complete opacification of the bilateral mastoid air cells, with middle ear flui d bilaterally, correlate for clinical findings of otomastoiditis.
--- NOTE | ~2023-07-20 | XR_ITS ---
EXAMINATION: XR chest 1V Exam Date/Time: 07/20/2023 18:40 CLOTH WEAVER HISTORY: Cough Comparison: 06/29/2021; CTPA 07/01/2021. RESULT: Lines, tubes, and devices: Midline abdominal surgical dayanna. Lungs and pleura: Significant leftward rotation. Subsegmental left basilar opacities. Mild left cost ophrenic angle blunting. Cardiomediastinal silhouette: Stable. Moderate hiatal hernia Other: No acute osseous or upper abdominal finding. IMPRESSION: Subsegmental left basilar atelectasis/consolidation. Possible small left pleural effusion. Reviewed, dictated and finalized at location K. H WEAVER IMPRESSION: Subsegmental left basilar atelectasis/consolidation. Possible small left pleura l effusion.
[2023-07-20 14:35] LABS: Basophils Absolute Auto 0.1 K/mm3 (0.0-0.1); Basophils Percent Auto 0.8 % (0.2-1.2); Eosinophils Absolute Auto 0.4 K/mm3 (0-0.3); Eosinophils Percent Auto 7.2 % (0-4.4); Hematocrit 47.1 % (37.0-47.0); Hemoglobin 15.4 g/dL (12.0-15.0); Immature Granulocyte Absolute 0.05 K/mm3 (0.00-0.031); Immature Granulocyte Percent A 0.8 % (0-0.5); Lymphocytes Absolute Auto 1.71 K/mm3 (0.9-3.2); Lymphocytes Percent Auto 28.8 % (18.3-44.2); Mean Corpuscular HGB Conc 32.7 g/dl (32-36); Mean Corpuscular Hemoglobin 30.7 pg (26-34); Monocytes Absolute Auto 0.3 K/mm3 (0.1-0.6); Monocytes Percent Auto 5.2 % (2.6-8.5); Neutrophils Absolute Auto 3.4 K/mm3 (1.3-6.7); Neutrophils Percent Auto 57.2 % (45.5-73.1); Platelet Count Result 180 k/mm3 (150-375); Red Blood Count 5.01 M/mm3 (4.2-5.4); Red Cell Distribution Width 15.5 % (11.5-14.5); White Blood Count 5.9 K/mm3 (4.5-10.0)
[2023-07-20 14:46] LABS: Alanine Aminotransferase 29 U/L (6-35); Albumin Level 3.8 g/dL (3.5-5.1); Alkaline Phosphatase 58 U/L (38-126); Anion Gap 6 mmol/L (8-16); Aspartate Amino Transferase 37 U/L (14-36); Bilirubin,Total 1.1 mg/dL (0.2-1.3); Blood Urea Nitrogen 15 mg/dL (7-17); Calcium 9.1 mg/dL (8.4-10.2); Carbon Dioxide 24 mmol/L (22-30); Chloride 106 mmol/L (98-107); Estimated CRCL calculation 43 ml/min; Estimated Glomerular Filt Rate 55; Glucose 102 mg/dL (65-110); Potassium 3.7 mmol/L (3.4-5.0); Sodium 136 mmol/L (137-145)
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
[2023-07-20 16:32] LABS: Appearance Urine Cloudy (Clear); Bacteria Urine 4+ /hpf; Bilirubin Urine Negative (Negative); Blood Urine 1+ (Negative); Color Urine Yellow (Yellow); Glucose Urine UA Negative (Negative); Ketones Urine Trace mg/dL (Negative); Leukocyte Esterase Ur Trace LEU/UL (Negative); Need Manual Microscopic Reviewed; Nitrate Urine Positive (Negative); Protein Urine 2+ mg/dL (Negative); RBC Urine >100 /hpf (0-2); Specific Grav Ur 1.019 (1.001-1.035); Squamous Epithelial Cell Urine Moderate /hpf (Few); WBC Urine 0-5 /hpf
[2023-07-20 16:34] LABS: Add Urine Microscopic? YES
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
[2023-07-20] MEDS: SODIUM CHLORIDE 0.9% IV 1,000 ML 125 ML IV CONT (19:02)
--- NOTE | 2023-07-20 19:16 | PC.NURSE ---
Nurse report given to Mago ESQUIVEL.
[2023-07-20] MEDS: DEXTROSE 5%/0.9% SOD CHL 1,000 ML 100 ML IV CONT (20:04)
[2023-07-20 20:21] LABS: Thyroid Stimulating Hormone Reflex > 100.000 uIU/mL (0.465-4.68)
[2023-07-20 20:46] LABS: Free T4 Free Thyroxine Reflex < 0.07 ng/dL (0.78-2.19)
--- NOTE | 2023-07-20 21:30 | ADMGEN ---
This patient, Anu Aguilar, was admitted to [facility] Surg Room 322-02. Patient/family oriented to hospital policies and general routines including ID bracelet, bed and alarms, visiting hours, pain management, procedures, bathroom and other care routines, personal items, smoking policy, room service/diet, and visiting hours. Information on how to activate the Rapid Response Team has been discussed. Patient/Family are encouraged to report perceived risks to care and to ask questions if they do not understand what they are told or what they should do.
[2023-07-21 06:00] VITALS: BP 148/92; PULSE 56; RESP 20; TEMP 36; O2SAT 97
[2023-07-21] MEDS: LEVOTHYROXINE SODIUM 150 MCG TABLET PO (06:45)
[2023-07-21 08:31] LABS: Basophils Absolute Auto 0.1 K/mm3 (0.0-0.1); Basophils Percent Auto 0.8 % (0.2-1.2); Eosinophils Absolute Auto 0.1 K/mm3 (0-0.3); Eosinophils Percent Auto 1.7 % (0-4.4); Hematocrit 47.8 % (37.0-47.0); Hemoglobin 15.7 g/dL (12.0-15.0); Immature Granulocyte Absolute 0.04 K/mm3 (0.00-0.031); Immature Granulocyte Percent A 0.6 % (0-0.5); Immature Platelet Fraction Pct 5.7 % (0.9-11.2); Lymphocytes Absolute Auto 1.25 K/mm3 (0.9-3.2); Lymphocytes Percent Auto 17.7 % (18.3-44.2); Mean Corpuscular HGB Conc 32.8 g/dl (32-36); Mean Corpuscular Hemoglobin 31.4 pg (26-34); Mean Corpuscular Volume 95.6 fl (80-100); Mean Platelet Volume 10.5 fl (7.4-10.4); Monocytes Absolute Auto 0.3 K/mm3 (0.1-0.6); Monocytes Percent Auto 4.7 % (2.6-8.5); Neutrophils Absolute Auto 5.3 K/mm3 (1.3-6.7); Neutrophils Percent Auto 74.5 % (45.5-73.1); Red Cell Distribution Width 15.3 % (11.5-14.5); White Blood Count 7.1 K/mm3 (4.5-10.0)
[2023-07-21 09:09] LABS: Anion Gap 7 mmol/L (8-16); Blood Urea Nitrogen 11 mg/dL (7-17); Calcium 8.9 mg/dL (8.4-10.2); Carbon Dioxide 21 mmol/L (22-30); Chloride 107 mmol/L (98-107); Estimated CRCL calculation 49 ml/min; Estimated Glomerular Filt Rate > 60; Glucose 100 mg/dL (65-110); Potassium 4.2 mmol/L (3.4-5.0); Sodium 135 mmol/L (137-145)
[2023-07-21] MEDS: ENOXAPARIN 40 MG/0.4 ML SYRINGE SUB-Q (09:25)
[2023-07-21] MEDS: lisinopriL 20 MG TABLET 40 MG PO (09:27)
[2023-07-21] MEDS: DOCUSATE SODIUM 100 MG CAPSULE PO (09:27)
[2023-07-21] MEDS: DEXTROSE 5%/0.9% SOD CHL 1,000 ML 100 ML IV CONT ×2 (09:40→19:58)
[2023-07-21 10:02] VITALS: BP 162/98; PULSE 62; RESP 18; TEMP 36.3; O2SAT 96
[2023-07-21 11:57] VITALS: BP 138/70
[2023-07-21 13:29] VITALS: BMI 19.5
[2023-07-21 14:00] VITALS: BP 108/70; PULSE 69; RESP 18; TEMP 36.4; O2SAT 95
--- NOTE | 2023-07-21 14:33 | PM.IMPN ---
Progress Note: A&P Assessment and Plan (1) Severe malnutrition: Code(s): E43 - Unspecified severe protein-calorie malnutrition Status: Acute Assessment and Plan: BMI 19.5, 54.9kg Customer Service Leader consult Care coordination following (2) Physical deconditioning: Code(s): R53.81 - Other malaise Status: Acute Assessment and Plan: Patient has been bed-ridden for the past 9 months and was being cared for by her at home. PT and OT ordered to evaluate for outpatient needs Care coordination following. (3) Acute metabolic encephalopathy: Code(s): G93.41 - Metabolic encephalopathy Status: Acute Assessment and Plan: Alert and Oriented x1 Patient has baseline confusion Head Ct negative for any acute intracranial process (4) Hypothyroid: Code(s): E03.9 - Hypothyroidism, unspecified Status: Acute Assessment and Plan: TSH 100, free T4 <0.07 Patient restarted on synthroid, suspect that patient has not been taking this regularly at home. (5) GERD (gastroesophageal reflux disease): Code(s): K21.9 - Gastro-esophageal reflux disease without esophagitis Status: Acute Assessment and Plan: Protonix ordered (6) Hyperlipemia: Code(s): E78.5 - Hyperlipidemia, unspecified Status: Acute Assessment and Plan: Normally on atorvastatin 80 mg daily, however medications have not been reconciled. Atorvastatin 80 mg daily ordered Time Spent With Patient Time with patient: 25 - 35 minutes Subjective Date/time seen: 07/21/23 14:33 Interval history: This is a 73 year old who presented to the hospital on 07/20/23 for evaluation of AMS. Work up in the hospital included head CT which was negative for any acute intracranial process. Chest x-ray revealed subsegmental left basilar atelectasis/consolidation. Initial labs showed sodium of 136, AST of 37, TSH of greater than 100, free T4 0.07. UA was obtained and showed 2+ protein, trace ketones, 1+ blood, positive nitrates, trace leukocytes,> 100 urine RBC, 4+ bacteria. Patient was placed on Rocephin and re-started on Synthroid 150mcg per day. On examination today patient is alert and oriented x1. A friend is at the bedside with her. Labs today reveal hemoglobin 15.7, hematocrit 47.8, white blood cell count 7.1, sodium level 135, bicarb level 21. Urine culture ordered. Continue Rocephin. Review of Systems Review of Systems: ROS unobtainable: Yes unobtainable due to mental status Exam Narrative: General: In no acute distress, well nourished Head: atraumatic, no encephalopathy Eyes: EOMI, PERRLA, sclera clear ENT: moist mucous membranes, nasal passages clear Neck: supple, no JVD, no adenopathy, trachea midline Cardiac: Normal S1 and S2. RRR. No murmur, gallops or friction rubs, peripheral pulses intact. Respiratory: Lungs clear to auscultation, no adventitious lung sounds Gastrointestinal: soft, non-distended, non-tender, normoactive bowel sounds. : voiding without difficulty. Extremities: moves all extremities well, no edema Skin: skin excessively dry Neuro: Alert and oriented x1 Psych: normal mood, normal affect, interactive Objective Data Vital Signs Vital Signs: Vital Signs - 24 hr 07/20/23 14:45 07/20/23 15:01 07/20/23 15:15 Temperature Pulse Rate 65 63 Respiratory Rate 14 14 Blood Pressure 163/98 H 135/100 H 143/102 H Pulse Oximetry 99 100 Oxygen Delivery 07/20/23 15:31 07/20/23 15:46 07/20/23 16:16 Temperature Pulse Rate 69 Respiratory Rate 16 Blood Pressure 136/101 H 135/99 H 161/105 H Pulse Oximetry 100 Oxygen Delivery 07/20/23 17:02 07/20/23 20:06 07/20/23 23:45 Temperature Pulse Rate 64 59 L Respiratory Rate 14 14 Blood Pressure 136/106 H 145/97 H Pulse Oximetry 94 97 Oxygen Delivery Room Air 07/21/23 06:00 07/21/23 10:02 07/21/23 11:57 Temperature 96.8 F L 97.3 F L Pulse Rate 56 L 62 Respirat
--- NOTE | 2023-07-21 20:01 | PC.NURSE ---
Communicated to provider that home meds unable to be reconciled because had not filled them in months and they were not given.
[2023-07-21 21:57] VITALS: BP 124/85; PULSE 61; RESP 18; TEMP 36.3; O2SAT 98
[2023-07-22] MEDS: DEXTROSE 5%/0.9% SOD CHL 1,000 ML 100 ML IV CONT ×2 (05:57→17:25)
[2023-07-22 06:00] VITALS: BP 147/96; PULSE 57; RESP 18; TEMP 36.5; O2SAT 97
[2023-07-22 09:29] VITALS: BMI 11.0
[2023-07-22] MEDS: ATORVASTATIN 40 MG TABLET 80 MG PO (09:30)
[2023-07-22] MEDS: lisinopriL 20 MG TABLET 40 MG PO (09:30)
[2023-07-22] MEDS: ENOXAPARIN 40 MG/0.4 ML SYRINGE SUB-Q (09:30)
[2023-07-22] MEDS: PANTOPRAZOLE 40 MG TABLET PO (09:31)
[2023-07-22] MEDS: DOCUSATE SODIUM 100 MG CAPSULE PO ×2 (09:31→17:25)
[2023-07-22 14:00] VITALS: BP 135/78; PULSE 57; RESP 12; TEMP 36.6; O2SAT 97
[2023-07-22 14:45] VITALS: BMI 11.0
[2023-07-22 14:57] VITALS: O2SAT 94
--- NOTE | 2023-07-22 15:29 | P.PNIM_ITS ---
Progress Note: A&P Assessment and Plan (1) Severe malnutrition: Code(s): E43 - Unspecified severe protein-calorie malnutrition Status: Acute Assessment and Plan: * BMI 19.5, 54.9kg * Toll Collector consult * Care coordination following (2) Physical deconditioning: Code(s): R53.81 - Other malaise Status: Acute Assessment and Plan: * Patient has been bed-ridden for the past 9 months and was being cared for by her at home. * PT and OT ordered to evaluate for outpatient needs * Care coordination following. * Pending discharge to SNF for permanent placement. (3) Acute metabolic encephalopathy: Code(s): G93.41 - Metabolic encephalopathy Status: Acute Assessment and Plan: * Alert and Oriented x1 * Patient has baseline confusion * Will also treat for full 5 day course of ceftriaxone for suspected UTI. Recheck urinalysis and urine culture * Head Ct negative for any acute intracranial process (4) Hypothyroid: Code(s): E03.9 - Hypothyroidism, unspecified Status: Acute Assessment and Plan: * TSH 100, free T4 <0.07 * Patient restarted on synthroid, suspect that patient has not been taking this regularly at home. (5) GERD (gastroesophageal reflux disease): Code(s): K21.9 - Gastro-esophageal reflux disease without esophagitis Status: Acute Assessment and Plan: * Protonix ordered (6) Hyperlipemia: Code(s): E78.5 - Hyperlipidemia, unspecified Status: Acute Assessment and Plan: * Normally on atorvastatin 80 mg daily, however medications have not been r econciled. * Atorvastatin 80 mg daily ordered Plan Pending disposition to permanent placement. Lovenox for DVT prophylaxis Time Spent With Patient Time with patient: 25 - 35 minutes Subjective Date/time seen: 07/22/23 15:29 Interval history: NAOE Review of Systems Review of Systems: All systems reviewed & are unremarkable except as noted in HPI and below (subjective) Exam Const: General: comfortable and no acute distress Other: confused. A&Ox1 Neck: Neck: supple Resp: Effort & Inspection: normal respiratory effort Auscultation: clear to auscultation bilaterally Cardio: Rate: regular rate GI: GI Palp: Yes Soft to palpation and No Tenderness to palpation present (GI) Objective Data Vital Signs Vital Signs: Vital Signs - 24 hr 07/21/23 20:45 07/21/23 21:57 07/22/23 06:00 Temperature 97.3 F L 97.7 F Pulse Rate 61 57 L Respiratory Rate 18 18 Blood Pressure 124/85 147/96 H Pulse Oximetry 98 97 Oxygen Delivery Room Air 07/22/23 09:29 07/22/23 09:30 07/22/23 14:00 Temperature 97.8 F Pulse Rate 57 L Respiratory Rate 12 Blood Pressure 135/78 Pulse Oximetry 97 Oxygen Delivery Room Air Room Air 07/22/23 14:57 Temperature Pulse Rate Respiratory Rate Blood Pressure Pulse Oximetry 94 Oxygen Delivery Room Air Intake/Output Intake/Output: Intake & Output 07/19/23 07/20/23 07/21/23 07/22/23 23:59 23:59 23:59 23:59 Intake Total 250 2428 1100 Output Total 75 150
--- NOTE | 2023-07-22 15:29 | PM.IMPN ---
Progress Note: A&P Assessment and Plan (1) Severe malnutrition: Code(s): E43 - Unspecified severe protein-calorie malnutrition Status: Acute Assessment and Plan: BMI 19.5, 54.9kg Assistant Portfolio Manager consult Care coordination following (2) Physical deconditioning: Code(s): R53.81 - Other malaise Status: Acute Assessment and Plan: Patient has been bed-ridden for the past 9 months and was being cared for by her at home. PT and OT ordered to evaluate for outpatient needs Care coordination following. Pending discharge to SNF for permanent placement. (3) Acute metabolic encephalopathy: Code(s): G93.41 - Metabolic encephalopathy Status: Acute Assessment and Plan: Alert and Oriented x1 Patient has baseline confusion Will also treat for full 5 day course of ceftriaxone for suspected UTI. Recheck urinalysis and urine culture Head Ct negative for any acute intracranial process (4) Hypothyroid: Code(s): E03.9 - Hypothyroidism, unspecified Status: Acute Assessment and Plan: TSH 100, free T4 <0.07 Patient restarted on synthroid, suspect that patient has not been taking this regularly at home. (5) GERD (gastroesophageal reflux disease): Code(s): K21.9 - Gastro-esophageal reflux disease without esophagitis Status: Acute Assessment and Plan: Protonix ordered (6) Hyperlipemia: Code(s): E78.5 - Hyperlipidemia, unspecified Status: Acute Assessment and Plan: Normally on atorvastatin 80 mg daily, however medications have not been reconciled. Atorvastatin 80 mg daily ordered Plan Pending disposition to permanent placement. Lovenox for DVT prophylaxis Time Spent With Patient Time with patient: 25 - 35 minutes Subjective Date/time seen: 07/22/23 15:29 Interval history: NAOE Review of Systems Review of Systems: All systems reviewed & are unremarkable except as noted in HPI and below (subjective) Exam Const: General: comfortable and no acute distress Other: confused. A&Ox1 Neck: Neck: supple Resp: Effort & Inspection: normal respiratory effort Auscultation: clear to auscultation bilaterally Cardio: Rate: regular rate GI: GI Palp: Yes Soft to palpation and No Tenderness to palpation present (GI) Objective Data Vital Signs Vital Signs: Vital Signs - 24 hr 07/21/23 20:45 07/21/23 21:57 07/22/23 06:00 Temperature 97.3 F L 97.7 F Pulse Rate 61 57 L Respiratory Rate 18 18 Blood Pressure 124/85 147/96 H Pulse Oximetry 98 97 Oxygen Delivery Room Air 07/22/23 09:29 07/22/23 09:30 07/22/23 14:00 Temperature 97.8 F Pulse Rate 57 L Respiratory Rate 12 Blood Pressure 135/78 Pulse Oximetry 97 Oxygen Delivery Room Air Room Air 07/22/23 14:57 Temperature Pulse Rate Respiratory Rate Blood Pressure Pulse Oximetry 94 Oxygen Delivery Room Air Intake/Output Intake/Output: Intake & Output 07/19/23 07/20/23 07/21/23 07/22/23 23:59 23:59 23:59 23:59 Intake Total 250 2428 1100 Output Total 75 150 Balance 175 2278 1100 Meds/Results Medications: Active Medications Generic Name Dose Route Start Last Admin Trade Name Freq PRN Reason Stop Dose Admin Acetaminophen 650 mg 07/20/23 17:58 Acetaminophen 325 Mg Tablet PO Q4H PRN Mild Pain (1-3) or Fever Atorvastatin Calcium 80 mg 07/22/23 09:00 07/22/23 09:30 Atorvastatin 40 Mg Tablet PO 80 mg DAILY MARILU Administration Bisacodyl 10 mg 07/20/23 17:58 Bisacodyl 10 Mg Suppository RECTAL ONCE PRN Constipation Docusate Sodium 100 mg 07/21/23 09:00 07/22/23 09:31 Docusate Sodium 100 Mg Capsule PO 100 mg BID MARILU Administration Enoxaparin Sodium 40 mg 07/21/23 09:00 07/22/23 09:30 Enoxaparin 40 Mg/0.4 Ml Syringe SUB-Q 40 mg DAILY MARILU Administration Ceftriaxone Sodium 1 gm in 50 mls @ 100 mls/hr 07/21/23 12:00 07/22/23 13:41
[2023-07-22 22:00] VITALS: BP 156/95; PULSE 56; RESP 18; TEMP 36.6; O2SAT 100
[2023-07-23] MEDS: DEXTROSE 5%/0.9% SOD CHL 1,000 ML 100 ML IV CONT ×2 (03:31→14:07)
[2023-07-23 05:14] VITALS: PULSE 54; RESP 18; TEMP 36.4; O2SAT 99
[2023-07-23 05:22] VITALS: BP 160/92
[2023-07-23] MEDS: LEVOTHYROXINE SODIUM 150 MCG TABLET PO (05:34)
[2023-07-23 06:59] LABS: Basophils Absolute Auto 0.1 K/mm3 (0.0-0.1); Basophils Percent Auto 0.8 % (0.2-1.2); Eosinophils Absolute Auto 0.3 K/mm3 (0-0.3); Eosinophils Percent Auto 3.8 % (0-4.4); Hematocrit 46.3 % (37.0-47.0); Hemoglobin 14.4 g/dL (12.0-15.0); Immature Granulocyte Absolute 0.04 K/mm3 (0.00-0.031); Immature Granulocyte Percent A 0.6 % (0-0.5); Lymphocytes Absolute Auto 1.35 K/mm3 (0.9-3.2); Lymphocytes Percent Auto 20.5 % (18.3-44.2); Mean Corpuscular HGB Conc 31.1 g/dl (32-36); Mean Corpuscular Hemoglobin 31.2 pg (26-34); Mean Corpuscular Volume 100.2 fl (80-100); Mean Platelet Volume 9.8 fl (7.4-10.4); Monocytes Absolute Auto 0.5 K/mm3 (0.1-0.6); Monocytes Percent Auto 8.2 % (2.6-8.5); Neutrophils Absolute Auto 4.4 K/mm3 (1.3-6.7); Neutrophils Percent Auto 66.1 % (45.5-73.1); Platelet Count Result 154 k/mm3 (150-375); Red Blood Count 4.62 M/mm3 (4.2-5.4); Red Cell Distribution Width 15.8 % (11.5-14.5); White Blood Count 6.6 K/mm3 (4.5-10.0)
[2023-07-23 07:21] LABS: Anion Gap 12 mmol/L (8-16); Blood Urea Nitrogen 7 mg/dL (7-17); Calcium 8.2 mg/dL (8.4-10.2); Carbon Dioxide 9 mmol/L (22-30); Chloride 115 mmol/L (98-107); Estimated CRCL calculation 55 ml/min; Estimated Glomerular Filt Rate > 60; Glucose 99 mg/dL (65-110); Magnesium 2.6 mg/dL (1.6-2.3); Sodium 136 mmol/L (137-145)
[2023-07-23 07:26] LABS: Potassium 3.5 mmol/L (3.4-5.0)
[2023-07-23] MEDS: ENOXAPARIN 40 MG/0.4 ML SYRINGE SUB-Q (09:03)
[2023-07-23] MEDS: lisinopriL 20 MG TABLET 40 MG PO (09:03)
[2023-07-23] MEDS: DOCUSATE SODIUM 100 MG CAPSULE PO ×2 (09:04→17:13)
[2023-07-23] MEDS: ATORVASTATIN 40 MG TABLET 80 MG PO (09:04)
[2023-07-23] MEDS: PANTOPRAZOLE 40 MG TABLET PO (09:04)
[2023-07-23 14:00] VITALS: BP 130/78; PULSE 59; RESP 18; TEMP 36.6; O2SAT 96
--- NOTE | 2023-07-23 14:29 | P.PNIM_ITS ---
Progress Note: A&P Assessment and Plan (1) Severe malnutrition: Code(s): E43 - Unspecified severe protein-calorie malnutrition Status: Acute Assessment and Plan: * BMI 19.5, 54.9kg * Technical Support Intern consult * Care coordination following. DC tomorrow to SNF for permanent placement. (2) Physical deconditioning: Code(s): R53.81 - Other malaise Status: Acute Assessment and Plan: * Patient has been bed-ridden for the past 9 months and was being cared for by her at home. * PT and OT ordered to evaluate for outpatient needs * Care coordination following. * Pending discharge to SNF for permanent placement. (3) Acute metabolic encephalopathy: Code(s): G93.41 - Metabolic encephalopathy Status: Acute Assessment and Plan: * Alert and Oriented x1 * Patient has baseline confusion * Will also treat for full 5 day course of ceftriaxone for suspected UTI. Recheck urinalysis and urine culture * Head Ct negative for any acute intracranial process (4) Hypothyroid: Code(s): E03.9 - Hypothyroidism, unspecified Status: Acute Assessment and Plan: * TSH 100, free T4 <0.07 * Patient restarted on synthroid, suspect that patient has not been taking this regularly at home. (5) GERD (gastroesophageal reflux disease): Code(s): K21.9 - Gastro-esophageal reflux disease without esophagitis Status: Acute Assessment and Plan: * Protonix ordered (6) Hyperlipemia: Code(s): E78.5 - Hyperlipidemia, unspecified Status: Acute Assessment and Plan: * Normally on atorvastatin 80 mg daily, however medications have not been reconciled. * Atorvastatin 80 mg daily ordered Plan Pending disposition to permanent placement. Lovenox for DVT prophylaxis Time Spent With Patient Time with patient: 25 - 35 minutes Subjective Date/time seen: 07/23/23 14:29 Interval history: No acute overnight events. Review of Systems Review of Systems: All systems reviewed & are unremarkable except as noted in HPI and below (Subjective) ROS unobtainable: Yes unobtainable due to mental status Exam Const: General: comfortable and no acute distress Other: confused. A&Ox1 Neck: Neck: supple Resp: Effort & Inspection: normal respiratory effort Auscultation: clear to auscultation bilaterally Cardio: Rate: regular rate GI: GI Palp: Yes Soft to palpation and No Tenderness to palpation present (GI) Objective Data Vital Signs Vital Signs: Vital Signs - 24 hr 07/22/23 14:57 07/22/23 20:30 07/22/23 22:00 Temperature 97.9 F Pulse Rate 56 L Respiratory Rate 18 Blood Pressure 156/95 H Pulse Oximetry 94 100 Oxygen Delivery Room Air Room Air 07/23/23 05:14 07/23/23 05:22 Temperature 97.5 F L Pulse Rate 54 L Respiratory Rate 18 Blood Pressure 160/92 H Pulse Oximetry 99 Oxygen Delivery Intake/Output Intake/Output: Intake & Output 07/20/23 07/21/23 07/22/23 07/23/23 23:59 23:59 23:59 23:59 Intake Total 250 2428 2250 2059 Output Total 75 150 400 Balance 175 0038 3230 2059 Meds/Results Medications: Active
--- NOTE | 2023-07-23 14:29 | PM.IMPN ---
Progress Note: A&P Assessment and Plan (1) Severe malnutrition: Code(s): E43 - Unspecified severe protein-calorie malnutrition Status: Acute Assessment and Plan: BMI 19.5, 54.9kg Dairy Farm Manager consult Care coordination following. DC tomorrow to SNF for permanent placement. (2) Physical deconditioning: Code(s): R53.81 - Other malaise Status: Acute Assessment and Plan: Patient has been bed-ridden for the past 9 months and was being cared for by her at home. PT and OT ordered to evaluate for outpatient needs Care coordination following. Pending discharge to SNF for permanent placement. (3) Acute metabolic encephalopathy: Code(s): G93.41 - Metabolic encephalopathy Status: Acute Assessment and Plan: Alert and Oriented x1 Patient has baseline confusion Will also treat for full 5 day course of ceftriaxone for suspected UTI. Recheck urinalysis and urine culture Head Ct negative for any acute intracranial process (4) Hypothyroid: Code(s): E03.9 - Hypothyroidism, unspecified Status: Acute Assessment and Plan: TSH 100, free T4 <0.07 Patient restarted on synthroid, suspect that patient has not been taking this regularly at home. (5) GERD (gastroesophageal reflux disease): Code(s): K21.9 - Gastro-esophageal reflux disease without esophagitis Status: Acute Assessment and Plan: Protonix ordered (6) Hyperlipemia: Code(s): E78.5 - Hyperlipidemia, unspecified Status: Acute Assessment and Plan: Normally on atorvastatin 80 mg daily, however medications have not been reconciled. Atorvastatin 80 mg daily ordered Plan Pending disposition to permanent placement. Lovenox for DVT prophylaxis Time Spent With Patient Time with patient: 25 - 35 minutes Subjective Date/time seen: 07/23/23 14:29 Interval history: No acute overnight events. Review of Systems Review of Systems: All systems reviewed & are unremarkable except as noted in HPI and below (Subjective) ROS unobtainable: Yes unobtainable due to mental status Exam Const: General: comfortable and no acute distress Other: confused. A&Ox1 Neck: Neck: supple Resp: Effort & Inspection: normal respiratory effort Auscultation: clear to auscultation bilaterally Cardio: Rate: regular rate GI: GI Palp: Yes Soft to palpation and No Tenderness to palpation present (GI) Objective Data Vital Signs Vital Signs: Vital Signs - 24 hr 07/22/23 14:57 07/22/23 20:30 07/22/23 22:00 Temperature 97.9 F Pulse Rate 56 L Respiratory Rate 18 Blood Pressure 156/95 H Pulse Oximetry 94 100 Oxygen Delivery Room Air Room Air 07/23/23 05:14 07/23/23 05:22 Temperature 97.5 F L Pulse Rate 54 L Respiratory Rate 18 Blood Pressure 160/92 H Pulse Oximetry 99 Oxygen Delivery Intake/Output Intake/Output: Intake & Output 07/20/23 07/21/23 07/22/23 07/23/23 23:59 23:59 23:59 23:59 Intake Total 250 2428 2250 0 Output Total 75 150 400 Balance 175 2278 1850 0 Meds/Results Medications: Active Medications Generic Name Dose Route Start Last Admin Trade Name Freq PRN Reason Stop Dose Admin Acetaminophen 650 mg 07/20/23 17:58 Acetaminophen 325 Mg Tablet PO Q4H PRN Mild Pain (1-3) or Fever Amoxicillin/Clavulanate Potassium 1 tablet 07/24/23 09:00 Amoxicillin/Clavulanate K 875-125 Mg Tab PO 07/24/23 21:01 Q12HR MARILU Atorvastatin Calcium 80 mg 07/22/23 09:00 07/23/23 09:04 Atorvastatin 40 Mg Tablet PO 80 mg DAILY MARILU Administration Bisacodyl 10 mg 07/20/23 17:58 Bisacodyl 10 Mg Suppository RECTAL ONCE PRN Constipation Docusate Sodium 100 mg 07/21/23 09:00 07/23/23 09:04 Docusate Sodium 100 Mg Capsule PO 100 mg BID MARILU Administration Enoxaparin Sodium 40 mg 07/21/23 09:00 07/23/23 09:03 Enoxaparin 40 Mg/0.4 Ml Syringe SUB-Q 40 mg SUZI
[2023-07-23 20:00] VITALS: O2SAT 96
[2023-07-23 20:25] VITALS: BP 152/99; PULSE 97; RESP 18; TEMP 36.1; O2SAT 95
[2023-07-24 04:05] VITALS: BP 159/97; PULSE 60; RESP 20; TEMP 36.2; O2SAT 95
[2023-07-24] MEDS: LEVOTHYROXINE SODIUM 150 MCG TABLET PO (05:35)
[2023-07-24] MEDS: lisinopriL 20 MG TABLET 40 MG PO (09:47)
[2023-07-24] MEDS: PANTOPRAZOLE 40 MG TABLET PO (09:47)
[2023-07-24] MEDS: ENOXAPARIN 40 MG/0.4 ML SYRINGE SUB-Q (09:47)
[2023-07-24] MEDS: ATORVASTATIN 40 MG TABLET 80 MG PO (09:48)
[2023-07-24] MEDS: DOCUSATE SODIUM 100 MG CAPSULE PO (09:48)
[2023-07-24] MEDS: AMOXICILLIN/CLAVULANATE K 875-125 MG TAB 1 TABLET PO (09:48)
[2023-07-24 10:54] VITALS: BMI 11.0
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
[2023-07-24 14:00] VITALS: BP 138/91; PULSE 66; RESP 20; TEMP 35.9; O2SAT 94
--- NOTE | 2023-07-24 19:00 | PC.NURSE ---
Pt was transferred to [facility] via [facility]. Pt has denied pain. Pt compliant with medication. Pt was monitored for any changes in status. Report was called to Katt.
== END 2023-07-24 16:00 | DRG 640 ==
LOC: ANHED 16:33 → ANH3MEDSUR 18:15
PROVIDERS: Admitting Provider Hospitalist; Emergency Provider Family Medicine; PCP Internal Medicine; Visit Provider General Practice
DX: E43 Unspecified severe protein-calorie malnutrition (principal); G93.41 Metabolic encephalopathy; Z68.1 Body mass index [BMI] 19.9 or less, adult; N39.0 Urinary tract infection, site not specified; T74.01XA Adult neglect or abandonment, confirmed, initial encounter; B96.20 Unspecified Escherichia coli [E. coli] as the cause of diseases classified elsewhere; E86.0 Dehydration; E03.9 Hypothyroidism, unspecified; E78.5 Hyperlipidemia, unspecified; F03.90 Unspecified dementia, unspecified severity, without behavioral disturbance, psychotic disturbance, mood disturbance, and anxiety; F41.9 Anxiety disorder, unspecified; F17.210 Nicotine dependence, cigarettes, uncomplicated; F32.A Depression, unspecified; I10 Essential (primary) hypertension; K21.9 Gastro-esophageal reflux disease without esophagitis; Z90.710 Acquired absence of both cervix and uterus; Z79.82 Long term (current) use of aspirin
CPT/HCPCS: 36415; 70450; 71045; 80048; 80053; 81001; 83735; 84439; 84443; 85025; 85055; 87086; 87186; 97110; 97161; 97167; 97530; 99285; A9270; J0696; J1650; J7030; J7042

== ENCOUNTER 2023-08-07 18:33 | Inpatient (IN) | payer MEDICARE, SELFPAY ==
[2023-08-07] VITALS (24 sets, daily range): BP systolic 84–175; BP diastolic 64–121; PULSE 65–94; RESP 10–35; TEMP 36.3; O2SAT 95–98
--- NOTE | ~2023-08-07 | US_ITS ---
EXAMINATION: US renal BI DATE: 08/10/2023 09:52 INDICATION: Anuric TECHNIQUE: Multiple grayscale and Doppler ultrasound images of the kidneys were obtained. COMPARISON: None. FINDINGS: The right kidney measures 8.5 x 3.6 x 4.3 cm. The left kidney measures 8.2 x 4.6 x 3.3 cm. The kidneys demonstrate increased parenchymal echogenicity. There is no hydronephrosis. The bladder w all appears to be mildly thickened. There is mild distention of the urinary bladder. IMPRESSION: 1. Moderate atrophy of the kidneys. 2. Possible mild wall thickening of the urinary bladder which could reflect cystitis. Reviewed, dictated and finalized at location B. OPERATOR PROGRAMMER IMPRESSION: 1. Moderate atrophy of the kidneys. 2. Possible mild wall thickening of the urinary bladder which could reflect cys titis.
--- NOTE | ~2023-08-07 | XR_ITS ---
EXAMINATION: XR chest 1V portable DATE: 08/07/2023 19:27 INDICATION: Seizure. TECHNIQUE: A single frontal view of the chest was obtained. COMPARISON: Chest single view 07/20/2023, 06/29/2021, chest CT 07/01/2021 FINDINGS: The patient is rotated to her left. There are airspace opacities in right upper lobe and le ft lower lung zone. No pleural effusion or pneumothorax. The heart size is normal. IMPRESSION: 1. New airspace opacities in right upper lung zone suspicious for pneumonia. 2. Chronic airspace opacities in left lower lung zone, consistent with atelectasis/scarring versus pn eum[place]. Reviewed, dictated and finalized at location E. TIC BOAT PATCHER IMPRESSION: 1. New airspace opacities in right upper lung zone suspicious for pneumonia. 2. Chronic airspace opacities in left lower lung zone, consistent with atelecta sis/scarring versus pneumonia.
--- NOTE | ~2023-08-07 | XR_ITS ---
EXAMINATION: XR barium swallow modified DATE: 08/12/2023 10:40 INDICATION: Aspiration. TECHNIQUE: The patient was given barium-containing material of multiple consistencies to swallow by t arianna speech pathologist while I performed fluoroscopy. Fluoroscopy exposure time was 0.2 minutes. The n umber of fluoroscopy images saved to the PACS was 1. Dose-area product was 0.222 Gy-cm^2. FINDINGS: Offered materials remained in the front of the mouth. There was no initiation of the swallow. IMPRESSION: 1. No initiation of the swallow. 2. Please refer to the speech therapy report for recommendations. Reviewed, dictated and finalized at location A. MANAGEMENT ANALYST
--- NOTE | ~2023-08-07 | CT_ITS ---
EXAMINATION: CT brain wo con DATE: 08/07/2023 19:35 INDICATION: Seizure. TECHNIQUE: Computed tomography (CT) of the head was performed without intravenous contrast. The mA wa s adjusted according to patient size. Iterative reconstruction technique was employed. The dose-lengt h product was 832.33 mGy-cm. COMPARISON: Head CT 07/20/2023, 06/30/21 FINDINGS: There is no intracranial hemorrhage, acute infarction, or abnormal intracranial mass lesion . There are scattered areas of low attenuation in the cerebral white matter. The lateral and third ve ntricles are enlarged relative to the size of the sulci. There are likely changes of ocular lens repl acement surgeries. There is mucosal thickening in the paranasal sinuses. There is sclerosis of the wa lls of right sphenoid sinus, consistent with chronic sinusitis. There are bilateral mastoid effusions . There is cerumen in right external auditory canal. IMPRESSION: 1. Chronic ventriculomegaly involving the lateral and third ventricles. Correlate clinically for norm al pressure hydrocephalus. 2. Stable extensive nonspecific cerebral white matter disease, which likely represents chronic small vessel ischemic disease. 3. Chronic sinusitis. Reviewed, dictated and finalized at location E. LOADER IMPRESSION: 1. Chronic ventriculomegaly involving the lateral and third ventricles. Correla te clinically for normal pressure hydrocephalus. 2. Stable extensive nonspecific cerebral white matter disease, which likely rep resents chronic small vessel ischemic disease. 3. Chronic sinusitis.
--- NOTE | 2023-08-07 18:46 | ECG_ITS ---
Measurements Intervals [place] Rate: 88 P: 44 CA: 152 QRS: -62 QRSD: 83 T: 46 QT: 368 QTc: 445 Interpretive Statements SINUS RHYTHM BASELINE ARTIFACT LOW QRS VOLTAGE IN PRECORDIAL LEADS [QRS DEFLECTION < 1.0 mV IN CHEST LEADS] POSSIBLE ANTERIOR MYOCARDIAL INFARCTION , OF INDETERMINATE AGE [30 ms Q WAVE IN V3/V4, OR R < 0.2 mV IN V4] INFERIOR MYOCARDIAL INFARCTION , PROBABLY OLD [40+ ms Q WAVE AND/OR ST/T ABNORMALITY IN II/aVF] ABNORMAL ECG COMPARED TO ECG 06/29/2021 14:12:04 MYOCARDIAL INFARCT FINDING NOW PRESENT Electronically Signed On 08-08-2023 14:37:13 COMMISSARY HELPER by Misha Luque M.D.
--- NOTE | 2023-08-07 18:49 | ED.NEUROSD ---
HPI - Neuro Symptoms/Deficit General Chief Complaint: Neuro Symptoms/Deficit Stated Complaint: seizure Time Seen by Provider: 08/07/23 18:49 Source: family and EMS Mode of arrival: EMS Limitations: altered mental status and dementia History of Present Illness HPI Narrative: 73 YEARS OLD WHITE FEMALE CAME FROM [facility] WITH SEIZURE-LIKE ACTIVITY. HER WAS SITTING TALKING TO HER TRIED TO FEEDING HER SUDDENLY STARTED SHAKING ALL OVER, EYES ROLLED BACKWARD, FOAMING FROM THE MOUTH LASTED FOR FEW MINUTES. HE DENIES THAT THE PATIENT HAVE ANY HISTORY OF SEIZURE. PATIENT HAS BEEN AT THE [facility] FOR A WHILE, BED RIDDEN, CAN NOT EVEN STAND, CURRENTLY PATIENT LOOKS EXACTLY THE SAME BEFORE HAVING THE SEIZURE. PATIENT IS FULL CODE Related Data Home Medications Medication Instructions Recorded Confirmed atorvastatin 20 mg tablet 80 mg PO DAILY 11/18/20 07/22/23 levothyroxine 150 mcg tablet 150 mcg PO DAILY 11/18/20 07/22/23 lisinopril 40 mg tablet 40 mg PO DAILY 11/18/20 07/22/23 duloxetine 30 mg capsule,delayed 30 mg PO BID 11/19/20 07/22/23 release Allergies Allergy/AdvReac Type Severity Reaction Status Date / Time meperidine Allergy Mild Unknown Verified 11/19/20 03:06 Review of Systems Review of Systems: ROS unobtainable: Yes unobtainable due to mental status PMFSH Past Medical History Medical History Anxiety and depression Cholecystostomy drain infection Dementia GERD (gastroesophageal reflux disease) Hyperlipemia Hypertension Hypothyroid Surgical History Surgical History H/O: hysterectomy Family History Family History Father Acute myocardial infarction Other Unknown family medical history Social History Social History Social History: Patient seems to be confused and is currently a full code. The chart has Tracy salinas and Luis Aguilar as people to notify. The patient has 2 children. She is retired from working in a [employer] plant. The patient continues to smoke at home. No alcohol marijuana or illicit drugs. The is the durable power litigation attorney associate for healthcare. Code status full code Smoking packs per day: 1.5 Smoking cigarettes per day: 30.0 Smoking status: Current every day smoker Tobacco type: cigarettes Alcohol intake: unknown Substance use: unknown Do You Feel Safe in your Home?: No Lack of Transportation: YES Lack of Food: Never True Current Housing: I Have Housing Concerned About Future Housing: No Difficulty Paying Gas/Electric Bills: No Difficulty Paying for Meds: No Currently Unemployed: No Education: Don't Know Difficulty w/ Childcare or Family Care: No Gender identity (if verbalized by the patient): Female Spiritual care concerns: No Exam Narrative: GENERAL APPEARANCE: WELL-DEVELOPED, WELL-NOURISHED SKIN: NORMAL COLOR HEAD: NORMOCEPHALIC, NONTRAUMATIC EYES: CLEAR CONJUNCTIVA ENT: OROPHARYNX NORMAL, EARS NORMAL, NOSE NORMAL NECK: SUPPLE, NONTENDER CHEST AND RESPIRATORY: AIRWAY PATENT, NO RESPIRATORY DISTRESS, NO ACCESSORY MUSCLE USE HEART: REGULAR RATE/RHYTHM ABDOMEN: SOFT, NONTENDER, NO ORGANOMEGALY, QUIET BOWEL SOUNDS VASCULAR: NORMAL PERIPHERAL PULSES, NORMAL CAPILLARY REFILL. MUSCULOSKELETAL: PATIENT DOES NOT FOLLOW VERBAL COMMANDS, NEUROLOGIC: ALERT , DOES NOT FOLLOW VERBAL COMMANDS Course Consultations Consultation #1: Dr. Rivera Date: 08/07/23 Time: 21:12 Vital Signs Vital signs: Vital Signs Pulse Rate
--- NOTE | 2023-08-07 19:36 | PC.NURSE ---
Report given to SIERRA Chaudhary.
--- NOTE | 2023-08-07 19:38 | PC.NURSE ---
this rn assumed care of patient. this rn took patient report from devin lara.
[2023-08-07 20:10] LABS: Basophils Absolute Auto 0.1 K/mm3 (0.0-0.1); Basophils Percent Auto 0.5 % (0.2-1.2); Eosinophils Absolute Auto 0.1 K/mm3 (0-0.3); Eosinophils Percent Auto 0.6 % (0-4.4); Hematocrit 49.4 % (37.0-47.0); Hemoglobin 16.4 g/dL (12.0-15.0); Immature Granulocyte Percent A 0.9 % (0-0.5); Lymphocytes Absolute Auto 0.86 K/mm3 (0.9-3.2); Lymphocytes Percent Auto 7.7 % (18.3-44.2); Mean Corpuscular HGB Conc 33.2 g/dl (32-36); Mean Corpuscular Hemoglobin 31.5 pg (26-34); Mean Corpuscular Volume 94.8 fl (80-100); Mean Platelet Volume 9.4 fl (7.4-10.4); Monocytes Absolute Auto 0.5 K/mm3 (0.1-0.6); Monocytes Percent Auto 4.1 % (2.6-8.5); Neutrophils Absolute Auto 9.6 K/mm3 (1.3-6.7); Neutrophils Percent Auto 86.2 % (45.5-73.1); Platelet Count Result 177 k/mm3 (150-375); Red Blood Count 5.21 M/mm3 (4.2-5.4); Red Cell Distribution Width 15.9 % (11.5-14.5); White Blood Count 11.2 K/mm3 (4.5-10.0)
[2023-08-07 20:21] LABS: Alanine Aminotransferase 21 U/L (6-35); Albumin Level 4.3 g/dL (3.5-5.1); Alkaline Phosphatase 96 U/L (38-126); Anion Gap 12 mmol/L (8-16); Aspartate Amino Transferase 35 U/L (14-36); Bilirubin,Total 1.5 mg/dL (0.2-1.3); Blood Urea Nitrogen 16 mg/dL (7-17); Calcium 9.4 mg/dL (8.4-10.2); Carbon Dioxide 26 mmol/L (22-30); Chloride 105 mmol/L (98-107); Estimated Glomerular Filt Rate > 60; Glucose 117 mg/dL (65-110); Potassium 2.9 mmol/L (3.4-5.0); Sodium 143 mmol/L (137-145)
[2023-08-07 20:28] LABS: Prothrombin Time 13.7 Seconds (11.1-14.7)
[2023-08-07 20:29] LABS: Partial Thromboplastin Time 22.7 SECONDS (22.3-36.8)
[2023-08-07 20:34] LABS: Appearance Urine Cloudy (Clear); Bacteria Urine 4+ /hpf; Bilirubin Urine Negative (Negative); Blood Urine 1+ (Negative); Color Urine Yellow (Yellow); Glucose Urine UA Negative (Negative); Ketones Urine 1+ mg/dL (Negative); Leukocyte Esterase Ur Negative LEU/UL (Negative); Need Manual Microscopic Reviewed; Nitrate Urine Positive (Negative); Protein Urine 3+ mg/dL (Negative); Specific Grav Ur 1.016 (1.001-1.035); Squamous Epithelial Cell Urine Moderate /hpf (Few); WBC Urine 0-5 /hpf; pH Urine 6.5 (5.0-9.0)
[2023-08-07 20:40] LABS: Add Urine Microscopic? YES
[2023-08-07] MEDS: LABETALOL HCL INJ 100 MG/20 ML VIAL 10 MG IV PUSH (21:56)
[2023-08-07] MEDS: levETIRAcetam 1000MG/NACL100ML 1,000 MG/100 ML BAG 400 MG IVPB (21:56)
[2023-08-07] MEDS: SODIUM CHLORIDE 0.9% IV 500 ML 999 ML (22:27)
--- NOTE | 2023-08-07 22:27 | PC.NURSE ---
due to pt blood pressure of 84/70 and 91/64 on bilateral arms this RN spoke with edp dr. bullard. edp dr. bullard vorb 500ml bag of normal saline at a rate of 999mls/ hour. this rn used closed loop communication to confirm rate/ dose/ patient/ medication. edp dr. bullard confirmed. pt vital signs after bolus initiated was 72 HR, 96% on room air, 19 RR, and 96/75. Pt is altered by touch and is drowsy at this time.
--- NOTE | 2023-08-07 22:39 | PM.IMHP ---
H&P: HPI History of Present Illness Date/Time: 08/07/23 22:39 Chief Complaint: AMS Narrative: This is a 73-[facility]-old female [facility], has [facility] for over a [facility], patient is deconditioned, bed ridden. was visiting and feeding her when she have foaming at the mouth with generalized tremors. In emergency room preliminary workup was significant for chest x-ray with infiltrate. At the time of my visit patient is obtunded unable to give any history. A CT of the head showed ventriculomegaly. EXAMINATION: XR chest 1V portable DATE: 08/07/2023 19:27 INDICATION: Seizure. TECHNIQUE: A single frontal view of the chest was obtained. COMPARISON: Chest single view 07/20/2023, 06/29/2021, chest CT 07/01/2021 FINDINGS: The patient is rotated to her left. There are airspace opacities in right upper lobe and left lower lung zone. No pleural effusion or pneumothorax. The heart size is normal. IMPRESSION: 1. New airspace opacities in right upper lung zone suspicious for pneumonia. 2. Chronic airspace opacities in left lower lung zone, consistent with atelectasis/scarring versus pneumonia. EXAMINATION: CT brain wo con DATE: 08/07/2023 19:35 INDICATION: Seizure. TECHNIQUE: Computed tomography (CT) of the head was performed without intravenous contrast. The mA was adjusted according to patient size. Iterative reconstruction technique was employed. The dose-length product was 832.33 mGy-cm. COMPARISON: Head CT 07/20/2023, 06/30/21 FINDINGS: There is no intracranial hemorrhage, acute infarction, or abnormal intracranial mass lesion. There are scattered areas of low attenuation in the cerebral white matter. The lateral and third ventricles are enlarged relative to the size of the sulci. There are likely changes of ocular lens replacement surgeries. There is mucosal thickening in the paranasal sinuses. There is sclerosis of the [place] of right sphenoid sinus, consistent with chronic sinusitis. There are bilateral mastoid effusions. There is cerumen in right external auditory canal. IMPRESSION: 1. Chronic ventriculomegaly involving the lateral and third ventricles. Correlate clinically for normal pressure hydrocephalus. 2. Stable extensive nonspecific cerebral white matter disease, which likely represents chronic small vessel ischemic disease. 3. Chronic sinusitis. Review of Systems Review of Systems: ROS unobtainable: Yes unobtainable due to mental status (stuporous) [facility] Past Medical History Medical History Anxiety and depression Cholecystostomy drain infection Dementia GERD (gastroesophageal reflux disease) Hyperlipemia Hypertension Hypothyroid Surgical History Surgical History H/O: hysterectomy Family History Family History Father Acute myocardial infarction Other Unknown family medical history Social History Social History Social History: Patient seems to be confused and is currently a full code. The chart has Tracy salinas and Luis Aguilar as people to notify. The patient has 2 children. She is retired from working in a [employer] plant. The patient continues to smoke at home. No alcohol marijuana or illicit drugs. The is the durable power energy attorney for healthcare. Code status full code Smoking packs per day: 1.5 Smoking cigarettes per day: 30.0 Smoking status: Unknown if ever smoked Tobacco type: cigarettes Alcohol intake: unknown Substance use: unknown Substance use type: does not use Do You Feel Safe in your Home?: No Lack of Transportation: YES Lack of Food: Never True Current Housing: I Have Housing Concerned About Future Housing: No Difficulty Paying Gas/Electric Bills: No Difficulty Paying for Meds: No Currently Unemployed: No E
[2023-08-07] MEDS: POTASSIUM CHLORIDE INJ 40 MEQ in SODIUM CHLORIDE 0.9% IV 500 ML 130 MEQ IVPB (23:01)
[2023-08-08] VITALS (12 sets, daily range): BP systolic 130–150; BP diastolic 90–111; PULSE 70–85; RESP 12–20; TEMP 36.3–36.6; O2SAT 95–97; BMI 21.2
--- NOTE | 2023-08-08 00:40 | ADMGEN ---
This patient, Anu Aguilar, was admitted to Medical Room 244-. Patient/family oriented to hospital policies and general routines including ID bracelet, bed and alarms, visiting hours, pain management, procedures, bathroom and other care routines, personal items, smoking policy, room service/diet, and visiting hours. Information on how to activate the Rapid Response Team has been discussed. Patient/Family are encouraged to report perceived risks to care and to ask questions if they do not understand what they are told or what they should do.
--- NOTE | 2023-08-08 01:24 | PC.NURSE ---
This nurse did admission and assessment with help from [facility]dc paperwork, [facility]dc staff, and very minimal interaction with patient. Information put in to best of my ability. After speaking with [facility] staff, Rowena, it was brought to my attention that patient is involved in APS case. Case management consulted. Rowena states day shift RN will call in the morning to help complete any missing admission information.
[2023-08-08 09:15] LABS: Hematocrit 47.1 % (37.0-47.0); Hemoglobin 14.9 g/dL (12.0-15.0); Mean Corpuscular HGB Conc 31.6 g/dl (32-36); Mean Corpuscular Hemoglobin 30.8 pg (26-34); Mean Corpuscular Volume 97.3 fl (80-100); Mean Platelet Volume 9.6 fl (7.4-10.4); Platelet Count Result 215 k/mm3 (150-375); Red Blood Count 4.84 M/mm3 (4.2-5.4); Red Cell Distribution Width 16.2 % (11.5-14.5); White Blood Count 10.2 K/mm3 (4.5-10.0)
[2023-08-08 09:33] LABS: Alanine Aminotransferase 19 U/L (6-35); Albumin Level 3.8 g/dL (3.5-5.1); Alkaline Phosphatase 81 U/L (38-126); Anion Gap 12 mmol/L (8-16); Aspartate Amino Transferase 35 U/L (14-36); Bilirubin,Total 1.2 mg/dL (0.2-1.3); Blood Urea Nitrogen 15 mg/dL (7-17); Calcium 8.8 mg/dL (8.4-10.2); Carbon Dioxide 24 mmol/L (22-30); Chloride 107 mmol/L (98-107); Estimated CRCL calculation 44 ml/min; Estimated Glomerular Filt Rate > 60; Glucose 103 mg/dL (65-110); Potassium 3.4 mmol/L (3.4-5.0); Sodium 143 mmol/L (137-145)
[2023-08-08] MEDS: LABETALOL HCL INJ 100 MG/20 ML VIAL 10 MG IV PUSH (11:19)
--- NOTE | 2023-08-08 11:32 | PM.IMPN ---
Progress Note: A&P Assessment and Plan (1) AMS (altered mental status): Code(s): R41.82 - Altered mental status, unspecified Status: Acute Assessment and Plan: Likely secondary to acute illness Likely to be encephalopathic Supportive care CT of the head reviewed 08/08- Patient responds verbally to questions. Does not follow verbal commands. With review of previous documentation this is a change from what was patient baseline. Historically patient was able to move all extremities. EEG was ordered in ED. Neurology was consulted and we appreciate recommendations for care. (2) Urinary tract infection: Code(s): N39.0 - Urinary tract infection, site not specified Status: Acute Assessment and Plan: Patient started on antibiotics Await cultures 08/08- Culture pending. Continue IV abx (3) Pneumonia: Code(s): J18.9 - Pneumonia, unspecified organism Status: Acute Assessment and Plan: On broad-spectrum antibiotics await cultures 08/08- Lung sounds diminished. Continue IV abx (4) Dementia: Code(s): F03.90 - Unspecified dementia, unspecified severity, without behavioral disturbance, psychotic disturbance, mood disturbance, and anxiety Status: Acute Assessment and Plan: Currently holding meds due to altered mental status 08/08: Patient presents with altered mental status. She responds minimally with short verbal answers of yes or no. (5) Physical deconditioning: Code(s): R53.81 - Other malaise Status: Acute Assessment and Plan: Patient has been bed ridden 08/08 Patient does not move any extremity to command. She denies pain. Per historical documentation she has been bedridden. (6) Hydrocephalus: Code(s): G91.9 - Hydrocephalus, unspecified Status: Acute Assessment and Plan: Supportive care Remote history of shunt placement 08/08 CT notes : Chronic ventriculomegaly involving the lateral and third ventricles. Correlate clinically for normal pressure hydrocephalus. Time Spent With Patient Time with patient: 15 - 25 minutes Subjective Date/time seen: 08/08/23 0930 Interval history: 73 year old examined at bedside in interval assessment as she presented to the ED after witnessed seizure like activity. on examination patient arouses to sound. She will respond with short answer. When asked if she has pain she responded no . She does not open eyes on command and she does not follow directions, does not appear to be in any acute distress at time of assessment. Per historical documentation patient has been bed ridden and does not ambulate, however notes that she was able to move all extremities. With change in condition after seizure neurology has been consulted. Patient's family is to arrive to facility at a later time today to bring appropriate documentation to appropriate code status, until that time patient documented code status should remain in place. Patient's blood pressure was elevated this AM. Per nursing patient is refusing to take PO medications. PRN IV medication provided with parameters. Lab today note WBC 10.2, Hbg 14.9, K 3.4. Blood and urine cultures are pending. Continue IV abx. Review of Systems Review of Systems: ROS unobtainable: Yes unobtainable due to mental status Exam Narrative: General: Frail, Ill- appearing, elderly female, in no acute distress Head: atraumatic, Eyes: Does not open self- Sclera clear with assessment ENT: moist mucous dry Neck: supple, no JVD, no adenopathy, trachea midline Cardiac: Normal S1 and S2. RRR. peripheral pulses intact. Respiratory: Lungs diminished/ clear, no increased respiratory effort. Gastrointestinal: soft, non-distended, non-tender, normoactive bowel sounds. : voiding without difficulty. Extremities: does not move extremities to command. Skin: skin dry, no lesions or sores noted Neuro: Alert and oriented x1 Psych: defer Objective Data Vital
--- NOTE | 2023-08-08 14:02 | WPDNEURCNPN ---
Consult date: 08/08/23 HPI: Anu Aguilar is a 73 year old femaleAd[facility] to the [facility] reportedly she was sitting and talking to her tried to feed her but she suddenly started shaking all over and her eyes rolled backward she was foaming from the mouth the whole episode lasted for few minutes patient has had no seizures in the past as per the she has been at the [facility] a while completely bedridden cannot even stand and at the time of visit to the ER she looked exactly the same as before. Her medications at this time included atorvastatin 80mg daily levothyroxine 150mcg daily lisinopril 40mg daily duloxetine 30mg twice a day. She is not allergic to any medication. But she does have ongoing history of 1. Dementia 2. Anxiety with depression 3. Medical problems such as GERD hyperlipidemia hypertension hypothyroidism. She carries the full code status has history of smoking packs per day 1.5 with smoking cigarettes per day 30.0 and currently everyday smoker on initial eval in the emergency room she did not follow the verbal commands her vital signs were normal except blood pressure initially elevated 175/108 CBC was normal basic metabolic panel was normal UA was 5 with 4+ bacteria positive for nitrate and 3+ protein subsequent evaluation included normal CT scan of the head without any bleed, subsegmental left basilar atelectasis and consolidation with possible small left pleural effusion, and CT scan of the head with extensive nonspecific white matter disease in addition to chronic ventriculomegaly involving the lateral and 3rd ventricle raising the possibility of hydrocephalus versus hydrocephalus ex vacuo. At present patient receiving duloxetine 30mg daily levothyroxine 150mcg daily lisinopril 40mg daily and atorvastatin 20mg [facility] Past Medical History Medical History Anxiety and depression Cholecystostomy drain infection Dementia GERD (gastroesophageal reflux disease) Hyperlipemia Hypertension Hypothyroid Surgical History Surgical History H/O: hysterectomy Family History Family History Father Acute myocardial infarction Other Unknown family medical history Social History Social History Social History: Patient seems to be confused and is currently a full code. The chart has Tracy salinas and Luis Aguilar as people to notify. The patient has 2 children. She is retired from working in a [employer] plant. The patient continues to smoke at home. No alcohol marijuana or illicit drugs. The is the durable power claim attorney for healthcare. Code status full code Smoking packs per day: 1.5 Smoking cigarettes per day: 30.0 Smoking status: Unknown if ever smoked Tobacco type: cigarettes Alcohol intake: unknown Substance use: unknown Substance use type: does not use Do You Feel Safe in your Home?: No Lack of Transportation: YES Lack of Food: Never True Current Housing: I Have Housing Concerned About Future Housing: No Difficulty Paying Gas/Electric Bills: No Difficulty Paying for Meds: No Currently Unemployed: No Education: Don't Know Difficulty w/ Childcare or Family Care: No Gender identity (if verbalized by the patient): Female Spiritual care concerns: No Meds Home Medications and Allergies Home Medications Medication Instructions Recorded Confirmed Type atorvastatin 20 mg tablet 20 mg PO HS 11/18/20 08/08/23 History levothyroxine 150 mcg tablet 150 mcg PO DAILY 11/18/20 08/08/23 History lisinopril 40 mg tablet 40 mg PO DAILY 11/18/20 08/08/23 History duloxetine 30 mg capsule,delayed 30 mg PO DAILY 11/19/20 08/08/23 History release docusate sodium 100 mg capsule 100 mg PO BID PRN Const
--- NOTE | 2023-08-08 14:17 | WPDNEURCNPN ---
Assessment and Plan Assessment and plan (1) Observed seizure-like activity: Code(s): R56.9 - Unspecified convulsions Status: Acute Plan 1. Ongoing dementia with acute changes in the mental status raising the possibility of the seizure disorder 2. CT scan of the head consistent with the hydrocephalus for which she carries the diagnosis as such and no further intervention is necessary. She has remote history of shunt placement. 3. Generalized medical problem including UTI, pneumonia, 3. Planned at this stage is to continue the medical treatment as such and start her on the anticonvulsants that is Keppra 500mg q.12 hours. Consult date: 08/08/23 HPI: Anu Aguilar is a 73 year old femaleAdmitted to the hospital on transfer from the care home with seizure-like activity, reportedly she was sitting and talking to her who tried to feed her but she suddenly started shaking all over and her eyes rolled backward she was foaming from the mouth and the whole episode lasted for few minutes patient has had no seizures in the past as per the and she has been at the care home for a while completely bedridden, can not even stand and at the time of the visit to the ER she looked exactly the same as before. Her medication at this time included atorvastatin 80mg daily, levothyroxine 150mcg daily, lisinopril 40mg daily, duloxetine 30mg twice a day. She is not allergic to any medication. He does have ongoing history of 1. Dementia 2. Anxiety with depression 3. Medical problems such as GERD, hyperlipidemia, hypertension, and hypothyroidism. She carries the full code status and has history of smoking packs per day 1.5 with smoking cigarettes per day 30 and currently everyday smoker . On initial eval in the emergency room she did not follow the verbal commands, her vulva vital signs were normal, except her blood pressure was initially elevated 175/100, CBC was normal basic metabolic panel was normal UA was with 4+ bacteria positive and also positive for nitrate and protein subsequent evaluation included CT scan of the head without any bleed chest x-ray with subsegmental left basilar atelectasis and consolidation with possible small left pleural effusion, she scan of the head with extensive nonspecific white matter disease in addition to chronic ventriculomegaly involving the l lateral and 3rd ventricle raising the possibility of hydrocephalus versus brain atrophy at present she is receiving duloxetine 30mg daily levothyroxine 150mcg daily lisinopril 40mg daily and atorvastatin 20mg at night Review of Systems Review of Systems: All systems reviewed & are unremarkable except as noted in HPI and below PMFSH Past Medical History Medical History Anxiety and depression Cholecystostomy drain infection Dementia GERD (gastroesophageal reflux disease) Hyperlipemia Hypertension Hypothyroid Surgical History Surgical History H/O: hysterectomy Family History Family History Father Acute myocardial infarction Other Unknown family medical history Social History Social History Social History: Patient seems to be confused and is currently a full code. The chart has Tracy salinas and Luis Aguilar as people to notify. The patient has 2 children. She is retired from working in a [employer] plant. The patient continues to smoke at home. No alcohol marijuana or illicit drugs. The is the durable power senior attorney for healthcare. Code status full code Smoking packs per day: 1.5 Smoking cigarettes per day: 30.0 Smoking status: Unknown if ever smoked Tobacco type: cigarettes Alcohol intake: unknown Substance use: unknown Substance use type: does not use Do You Feel Safe in your Home?: No Lack of Transportation: YES
[2023-08-08] MEDS: SODIUM CHLORIDE 0.9% IV 1,000 ML 100 ML IV CONT (17:39)
[2023-08-08] MEDS: levETIRAcetam 500MG/NACL 100ML 500 MG/100 ML BAG 400 MG IVPB (20:51)
[2023-08-09] VITALS (10 sets, daily range): BP systolic 92–140; BP diastolic 60–100; PULSE 78–92; RESP 16–18; TEMP 36.4–37.1; O2SAT 95–97
[2023-08-09 05:15] LABS: Ammonia < 9 umol/L (9-30)
[2023-08-09 05:33] LABS: Hematocrit 46.7 % (37.0-47.0); Mean Corpuscular HGB Conc 32.1 g/dl (32-36); Mean Corpuscular Hemoglobin 31.1 pg (26-34); Mean Corpuscular Volume 96.7 fl (80-100); Mean Platelet Volume 10.2 fl (7.4-10.4); Platelet Count Result 191 k/mm3 (150-375); Red Blood Count 4.83 M/mm3 (4.2-5.4); Red Cell Distribution Width 16.5 % (11.5-14.5); White Blood Count 10.8 K/mm3 (4.5-10.0)
[2023-08-09 05:54] LABS: Alanine Aminotransferase 16 U/L (6-35); Albumin Level 3.4 g/dL (3.5-5.1); Alkaline Phosphatase 75 U/L (38-126); Anion Gap 10 mmol/L (8-16); Aspartate Amino Transferase 30 U/L (14-36); Bilirubin,Total 0.9 mg/dL (0.2-1.3); Blood Urea Nitrogen 14 mg/dL (7-17); Calcium 8.4 mg/dL (8.4-10.2); Carbon Dioxide 23 mmol/L (22-30); Chloride 110 mmol/L (98-107); Estimated CRCL calculation 50 ml/min; Estimated Glomerular Filt Rate > 60; Glucose 95 mg/dL (65-110); Potassium 2.9 mmol/L (3.4-5.0); Sodium 143 mmol/L (137-145)
--- NOTE | 2023-08-09 08:21 | PM.IMPN ---
Progress Note: A&P Assessment and Plan (1) AMS (altered mental status): Code(s): R41.82 - Altered mental status, unspecified Status: Acute Assessment and Plan: Likely secondary to acute illness Likely to be encephalopathic Supportive care CT of the head reviewed 08/08- Patient responds verbally to questions. Does not follow verbal commands. With review of previous documentation this is a change from what was patient baseline. Historically patient was able to move all extremities. EEG was ordered in ED. Neurology was consulted and we appreciate recommendations for care. 08/09- Patient more alert today, responds verbally and opens her eyes. She followed some verbal command to move extremities as she moved her left arm slightly. Attempted to contact do discuss baseline status, no answer at this time. Contacted nursing staff at [facility] and they confirmed that patient baseline behavior is what is being exhibited at this admission. Also confirmed patient has poor PO intake and often refuses to eat. EEG not completed as it is not available in this hospital over weekends. Neurology suggest that patient could be in post-ictal state and placed orders for IV keppra (2) Urinary tract infection: Code(s): N39.0 - Urinary tract infection, site not specified Status: Acute Assessment and Plan: Patient started on antibiotics Await cultures 08/08- Culture pending. Continue IV abx 08/09- Patient voids without expression of pain. Culture pending continue IV abx (3) Pneumonia: Code(s): J18.9 - Pneumonia, unspecified organism Status: Acute Assessment and Plan: On broad-spectrum antibiotics await cultures 08/08- Lung sounds diminished. Continue IV abx 08/09- Chest xray on admission notes: New airspace opacities in right upper lung zone suspicious for pneumonia. Chronic airspace opacities in left lower lung zone, consistent with atelectasis/scarring versus pneumonia. Continue IV abx. Lungs sounds diminished. No cough or respiratory distress noted. (4) Dementia: Code(s): F03.90 - Unspecified dementia, unspecified severity, without behavioral disturbance, psychotic disturbance, mood disturbance, and anxiety Status: Acute Assessment and Plan: Currently holding meds due to altered mental status 08/08: Patient presents with altered mental status. She responds minimally with short verbal answers of yes or no. 08/09: Patient baseline mentation can not be fully assessed as she only responds minimally to questions or commands. Several attempts made to to discuss patient baselines, with no success. Contact made with [facility] from which patient was admitted, they confirm that the present behavior that patient is exhibiting is her baseline since her admission at that facility. they confirmed that she is a total care patient, with minimal movement, opens eyes occasionally and has poor PO intake at most times. Will need to discuss further care options with to appropriate care. (5) Physical deconditioning: Code(s): R53.81 - Other malaise Status: Acute Assessment and Plan: Patient has been bed ridden 08/08 Patient does not move any extremity to command. She denies pain. Per historical documentation she has been bedridden. 08/09: Several attempts made to to discuss patient baselines, with no success. Contact made with [facility] from which patient was admitted, they confirm that the present behavior that patient is exhibiting is her baseline since her admission at that facility. They noted that she is a bedridden, total care patient, with minimal movement, opens eyes occasionally and has poor PO intake at most times. Will need to discuss further care options with to appropriate care. (6) Hydrocephalus: Code(s): G91.9 - Hydrocephalus, unspecified Status: Acute Assessment and Plan: Supportive care Remote history of shunt placemen
[2023-08-09] MEDS: POTASSIUM CHLORIDE INJ 40 MEQ in SODIUM CHLORIDE 0.9% IV 500 ML 130 MEQ IVPB (08:23)
[2023-08-09] MEDS: levETIRAcetam 500MG/NACL 100ML 500 MG/100 ML BAG 400 MG IVPB ×2 (08:25→21:07)
[2023-08-09 15:27] LABS: Potassium 3.4 mmol/L (3.4-5.0)
[2023-08-09] MEDS: DEXTROSE 5%/0.9% SOD CHL 1,000 ML 75 ML IV CONT (16:56)
[2023-08-09 17:05] LABS: Glucose Point of Care 88 mg/dl (65-105)
[2023-08-09] MEDS: hydrALAZINE HCL 20 MG/ML VIAL 10 MG IV PUSH (21:06)
[2023-08-10] VITALS (11 sets, daily range): BP systolic 114–148; BP diastolic 70–96; PULSE 79–102; RESP 16–18; TEMP 36.3–36.5; O2SAT 95–97; BMI 21.2
[2023-08-10 01:08] LABS: Glucose Point of Care 120 mg/dl (65-105)
[2023-08-10] MEDS: DEXTROSE 5%/0.9% SOD CHL 1,000 ML 75 ML IV CONT ×2 (05:09→19:56)
[2023-08-10 06:58] LABS: Glucose Point of Care 122 mg/dl (65-105)
--- NOTE | 2023-08-10 08:48 | PM.IMPN ---
Progress Note: A&P Assessment and Plan (1) AMS (altered mental status): Code(s): R41.82 - Altered mental status, unspecified Status: Acute Assessment and Plan: Likely secondary to acute illness Likely to be encephalopathic Supportive care CT of the head reviewed 08/08- Patient responds verbally to questions. Does not follow verbal commands. With review of previous documentation this is a change from what was patient baseline. Historically patient was able to move all extremities. EEG was ordered in ED. Neurology was consulted and we appreciate recommendations for care. 08/09- Patient more alert today, responds verbally and opens her eyes. She followed some verbal command to move extremities as she moved her left arm slightly. Attempted to contact do discuss baseline status, no answer at this time. Contacted nursing staff at [facility] and they confirmed that patient baseline behavior is what is being exhibited at this admission. Also confirmed patient has poor PO intake and often refuses to eat. EEG not completed as it is not available in this hospital over weekends. Neurology suggest that patient could be in post-ictal state and placed orders for IV keppra 08/10- Patient alert to sound, minimal verbal response today. EEG completed;awaiting results and neurology recommendations of care are appreciated. Dr Prado at bedside and notes patient status, and will order labs for further assessment. (2) Urinary tract infection: Code(s): N39.0 - Urinary tract infection, site not specified Status: Acute Assessment and Plan: Patient started on antibiotics Await cultures 08/08- Culture pending. Continue IV abx 08/09- Patient voids without expression of pain. Culture pending continue IV abx 08/10- Urine culture preliminary results note gram negative bacilli. Renal US noted:Moderate atrophy of the kidneys. Possible mild wall thickening of the urinary bladder which could reflect cystitis. Will discuss results with patients . However, patient is making urine. Per ID consultation. Patient IV abx adjusted for appropriate treatment IV Azithromycin 500mg/day and continue Ceftriaxone 1gm/day. (3) Pneumonia: Code(s): J18.9 - Pneumonia, unspecified organism Status: Acute Assessment and Plan: On broad-spectrum antibiotics await cultures 08/08- Lung sounds diminished. Continue IV abx 08/09- Chest xray on admission notes: New airspace opacities in right upper lung zone suspicious for pneumonia. Chronic airspace opacities in left lower lung zone, consistent with atelectasis/scarring versus pneumonia. Continue IV abx. Lungs sounds diminished. No cough or respiratory distress noted. 08/10- respirations non labored, no acute distress noted. Per ID consultation. Patient IV abx adjusted for appropriate treatment IV Azithromycin 500mg/day and continue Ceftriaxone 1gm/day. (4) Dementia: Code(s): F03.90 - Unspecified dementia, unspecified severity, without behavioral disturbance, psychotic disturbance, mood disturbance, and anxiety Status: Acute Assessment and Plan: Currently holding meds due to altered mental status 08/08: Patient presents with altered mental status. She responds minimally with short verbal answers of yes or no. 08/09: Patient baseline mentation can not be fully assessed as she only responds minimally to questions or commands. Several attempts made to to discuss patient baselines, with no success. Contact made with [facility] from which patient was admitted, they confirm that the present behavior that patient is exhibiting is her baseline since her admission at that facility. they confirmed that she is a total care patient, with minimal movement, opens eyes occasionally and has poor PO intake at most times. Will need to discuss further care options with to appropriate care. 08/10: Patient presentation remains the same. Family/ not available for further discussio
[2023-08-10] MEDS: levETIRAcetam 500MG/NACL 100ML 500 MG/100 ML BAG 400 MG IVPB (10:04)
[2023-08-10 10:48] LABS: Hematocrit 50.8 % (37.0-47.0); Hemoglobin 15.8 g/dL (12.0-15.0); Mean Corpuscular HGB Conc 31.1 g/dl (32-36); Mean Corpuscular Hemoglobin 30.9 pg (26-34); Mean Corpuscular Volume 99.2 fl (80-100); Platelet Count Result 196 k/mm3 (150-375); Red Blood Count 5.12 M/mm3 (4.2-5.4); Red Cell Distribution Width 17.2 % (11.5-14.5); White Blood Count 11.4 K/mm3 (4.5-10.0)
[2023-08-10 11:04] LABS: Alanine Aminotransferase 15 U/L (6-35); Albumin Level 3.3 g/dL (3.5-5.1); Alkaline Phosphatase 69 U/L (38-126); Anion Gap 6 mmol/L (8-16); Aspartate Amino Transferase 30 U/L (14-36); Bilirubin,Total 0.9 mg/dL (0.2-1.3); Blood Urea Nitrogen 12 mg/dL (7-17); Calcium 8.2 mg/dL (8.4-10.2); Carbon Dioxide 24 mmol/L (22-30); Chloride 114 mmol/L (98-107); Estimated CRCL calculation 50 ml/min; Estimated Glomerular Filt Rate > 60; Glucose 129 mg/dL (65-110); Sodium 144 mmol/L (137-145)
[2023-08-10 12:17] LABS: Glucose Point of Care 144 mg/dl (65-105)
--- NOTE | 2023-08-10 12:29 | PCSTNOTE ---
SIERRA Armstrong, reports that patient is NPO this morning for a test but also concerned that patient is not alert enough to be offering oral feedings/completing MBS. Therapist will check in this afternoon to see if patient is more appropriate for MBS.
[2023-08-10] MEDS: AZITHROMYCIN 500 MG/NS 250 ML 500 MG/250 ML BAG 250 MG IVPB (14:30)
--- NOTE | 2023-08-10 15:03 | PCSTNOTE ---
SIERRA Armstrong, continues to report patient is not awake and alert enough to complete MBS. Will check again in the morning.
[2023-08-10 17:15] LABS: Glucose Point of Care 129 mg/dl (65-105)
--- NOTE | 2023-08-10 17:29 | WPDNEUROPN ---
Progress Note: A&P Assessment and Plan (1) Observed seizure-like activity: Code(s): R56.9 - Unspecified convulsions Status: Acute Assessment and Plan: Patient is currently on Keppra 500 mg twice a day. CT scan the brain shows evidence for hydrocephalus. This had been noted in the past also and not considered to be an acute finding. There is some word that she might have a shunt for hydrocephalus in the past but I do not have the details of that. (2) Dementia: Code(s): F03.90 - Unspecified dementia, unspecified severity, without behavioral disturbance, psychotic disturbance, mood disturbance, and anxiety Status: Acute Assessment and Plan: The patient has been alf for well over a year. She has a . Apparently her baseline is or PSC now recurred to the nursing staffs conversation with the . Plan Will review the EEG and also order serum B12 and folic acid level, vitamin-D and thyroid function test. The issue regarding hydrocephalus and medications for dementia will need to be taken up further with the family. Subjective Date/time seen: 08/10/23 17:29 The patient remains drowsy although she had not had any witnessed seizures. When I came to see her initially seen having EEG. I returned back to see her a cane but the patient did not communicate or conversely I talked to the nursing staff and they have not seen any significant changes in her condition. Is from a alf. Apparently see has her eyes open her mouth open and not communicate and this is considered to be her baseline. CT scan of brain has shown findings suggestive of normal-pressure hydrocephalus. I reviewed the CT scan and MRI of the brain personally. Exam Narrative: Patient lying on her back and did not communicate. Her eyes are open and her mouth is also partially open. He did not communicate to any other questions however responds to painful stimuli. No involuntary movements are seen. No spasticity noted on either side. No contractures were noted. Objective Data Vital Signs Vital Signs: Vital Signs - 24 hr 08/09/23 20:47 08/09/23 20:00 08/09/23 23:00 Temperature 36.6 C 36.4 C Pulse Rate 92 87 Respiratory Rate 16 16 Blood Pressure 140/100 H 92/60 L Pulse Oximetry 97 95 Oxygen Delivery Room Air 08/10/23 01:22 08/09/23 20:00 08/10/23 00:00 Temperature 36.5 C Pulse Rate 95 90 87 Respiratory Rate 16 Blood Pressure 114/70 Pulse Oximetry 95 Oxygen Delivery 08/10/23 04:00 08/10/23 05:46 08/10/23 08:00 Temperature 36.5 C Pulse Rate 83 82 85 Respiratory Rate 16 Blood Pressure 126/80 Pulse Oximetry 97 Oxygen Delivery 08/10/23 07:40 08/10/23 12:04 08/10/23 13:57 Temperature 36.3 C L Pulse Rate 79 84 Respiratory Rate 16 18 Blood Pressure 148/96 H Pulse Oximetry 97 96 Oxygen Delivery Room Air 08/10/23 16:00 Temperature Pulse Rate 102 H Respiratory Rate Blood Pressure Pulse Oximetry Oxygen Delivery Intake/Output Intake/Output: Intake & Output 08/07/23 08/08/23 08/09/23 08/10/23 23:59 23:59 23:59 23:59 Intake Total 650 312 367 7870 Output Total 100 200 600 50 Balance 550 -236 333 1500 Meds/Results Medications: Active Medications Generic Name Dose Route Start Last Admin Trade Name Freq PRN Reason Stop Dose Admin Atorvastatin Calcium 20 mg 08/08/23 21:00 08/09/23 21:08 Atorvastatin 20 Mg Tablet PO Not Given HS MARILU Dextrose 12.5 gm 08/09/23 14:34 Dextrose 50% 25 Gm/50 Ml Syringe IV PUSH PRN PRN Hypoglycemia Protocol Docusate Sodium 100 mg 08/08/23 01:16 Docusate Sodium 100 Mg Capsule PO BID PRN Constipation Duloxetine HCl 30 mg 08/08/23 09:00 08/10/23 09:23 Duloxetine Hcl 30 Mg Capsule.Dr PO Not Given DAILY MARILU Glucagon 1 mg 08/09/23 14:34 Glucagon For Inj 1 Mg Vial IM PRN PRN Hypoglycemia Protocol Glucose 15 gm 02
[2023-08-10 20:33] LABS: Folic Acid 2.1 ng/mL (2.76->20)
[2023-08-10 20:39] LABS: Vitamin D 25 Hydroxy < 12.8 ng/mL
[2023-08-11] VITALS (8 sets, daily range): BP systolic 133–144; BP diastolic 88–96; PULSE 78–93; RESP 17–18; TEMP 36.3–36.8; O2SAT 94–95
[2023-08-11] MEDS: levETIRAcetam 500MG/NACL 100ML 500 MG/100 ML BAG 400 MG IVPB ×3 (00:38→20:20)
[2023-08-11 05:42] LABS: Glucose Point of Care 126 mg/dl (65-105)
[2023-08-11 05:53] LABS: Alanine Aminotransferase 13 U/L (6-35); Alkaline Phosphatase 54 U/L (38-126); Anion Gap 6 mmol/L (8-16); Aspartate Amino Transferase 23 U/L (14-36); Bilirubin,Total 0.8 mg/dL (0.2-1.3); Blood Urea Nitrogen 11 mg/dL (7-17); Carbon Dioxide 21 mmol/L (22-30); Chloride 119 mmol/L (98-107); Estimated CRCL calculation 58 ml/min; Estimated Glomerular Filt Rate > 60; Glucose 134 mg/dL (65-110); Magnesium 1.9 mg/dL (1.6-2.3); Potassium 2.8 mmol/L (3.4-5.0); Sodium 146 mmol/L (137-145)
[2023-08-11 06:23] LABS: Glucose Point of Care 122 mg/dl (65-105)
--- NOTE | 2023-08-11 06:38 | PM.EVENT ---
Event Note Event Note Event Note: Nursing staff called. Patient had critical potassium level of 2.8. Patient's potassium level was 3 yesterday and a cannot find documentation as to whether was replaced at that time. Patient's sodium is also trending upward. The patient is NPO and is receiving D5 normal saline at 75 mL an hour. I have discontinue these fluids and change him to D5 half-normal saline at 75 mL an hour. The patient also has hyperchloremic and is developing some mild acidosis with a mildly decreased serum bicarb. Patient will benefit from repeat electrolyte panels and was monitoring. Have also contacted pharmacy to maximize the amount of IV potassium that can be given because the potassium chloride riders also been ordered. The rate of fluids for the maintenance fluids will not be adequate to likely complete compensate for the patient's critical potassium. Have asked Pharmacy to appropriately adjust the rate on the potassium rider given the additional potassium supplements have been ordered.
[2023-08-11 07:16] LABS: Hematocrit 46.7 % (37.0-47.0); Hemoglobin 14.5 g/dL (12.0-15.0); Mean Corpuscular Hemoglobin 30.6 pg (26-34); Mean Corpuscular Volume 98.5 fl (80-100); Mean Platelet Volume 10.3 fl (7.4-10.4); Platelet Count Result 214 k/mm3 (150-375); Red Blood Count 4.74 M/mm3 (4.2-5.4); Red Cell Distribution Width 16.9 % (11.5-14.5); White Blood Count 10.2 K/mm3 (4.5-10.0)
[2023-08-11] MEDS: POTASSIUM CHLORIDE INJ 40 MEQ in SODIUM CHLORIDE 0.9% IV 500 ML 130 MEQ IVPB (07:19)
--- NOTE | 2023-08-11 08:32 | PM.IMPN ---
Progress Note: A&P Assessment and Plan (1) AMS (altered mental status): Code(s): R41.82 - Altered mental status, unspecified Status: Acute Assessment and Plan: Likely secondary to acute illness Likely to be encephalopathic Supportive care CT of the head reviewed 08/08- Patient responds verbally to questions. Does not follow verbal commands. With review of previous documentation this is a change from what was patient baseline. Historically patient was able to move all extremities. EEG was ordered in ED. Neurology was consulted and we appreciate recommendations for care. 08/09- Patient more alert today, responds verbally and opens her eyes. She followed some verbal command to move extremities as she moved her left arm slightly. Attempted to contact do discuss baseline status, no answer at this time. Contacted nursing staff at [facility] and they confirmed that patient baseline behavior is what is being exhibited at this admission. Also confirmed patient has poor PO intake and often refuses to eat. EEG not completed as it is not available in this hospital over weekends. Neurology suggest that patient could be in post-ictal state and placed orders for IV keppra 08/10- Patient alert to sound, minimal verbal response today. EEG completed;awaiting results and neurology recommendations of care are appreciated. Dr Prado at bedside and notes patient status, and will order labs for further assessment. 08/11- Patient mental status remains unchanged from previous day. Drowsy, but arouses to sound and touch. Neurology consulted and documented EEG study findings and they note Abnormal record due to the presence of bihemispheric slow activity during wakefulness and drowsiness but without evidence of any active seizure. Clinical correlation recommended these findings could be suggestive of postictal state or encephalopathy. (2) Urinary tract infection: Code(s): N39.0 - Urinary tract infection, site not specified Status: Acute Assessment and Plan: Patient started on antibiotics Await cultures 08/08- Culture pending. Continue IV abx 08/09- Patient voids without expression of pain. Culture pending continue IV abx 08/10- Urine culture preliminary results note gram negative bacilli. Renal US noted:Moderate atrophy of the kidneys. Possible mild wall thickening of the urinary bladder which could reflect cystitis. Will discuss results with patients . However, patient is making urine. Per ID consultation. Patient IV abx adjusted for appropriate treatment IV Azithromycin 500mg/day and continue Ceftriaxone 1gm/day. 08/11: Patient with urine production per nursing documentation. Nursing notes to provide urine not of foul order or dark appearing at this time. Urine cultures resulted and note E.coli. Without symptoms and slight decreased in WBC today UTI likely not source of infection but will reassess if WBC does not trend downward (3) Pneumonia: Code(s): J18.9 - Pneumonia, unspecified organism Status: Acute Assessment and Plan: On broad-spectrum antibiotics await cultures 08/08- Lung sounds diminished. Continue IV abx 08/09- Chest xray on admission notes: New airspace opacities in right upper lung zone suspicious for pneumonia. Chronic airspace opacities in left lower lung zone, consistent with atelectasis/scarring versus pneumonia. Continue IV abx. Lungs sounds diminished. No cough or respiratory distress noted. 08/10- respirations non labored, no acute distress noted. Per ID consultation. Patient IV abx adjusted for appropriate treatment IV Azithromycin 500mg/day and continue Ceftriaxone 1gm/day. 08/11: Patient presents with no noted respiratory distress, she denies difficulty breathing. Lung sounds are diminished at time of assessment. Continue IV abx and reassess if WBC does not trend downwards, (4) Dementia: Code(s): F03.90 - Unspecified dementia, unspecified severity, without behavioral disturbance, psych
--- NOTE | 2023-08-11 08:49 | PCSTNOTE ---
Patient continues to exhibit decreased awake and alertness for MBS. on hold. Will check again at noon. RN to contact [employer] should patient become more appropriate for MBS.
--- NOTE | 2023-08-11 09:12 | WPDNEUROLOGY ---
Neurology EEG Report General Information Date of Study: 08/10/23 TEST eeg DIAGNOSIS seizure Like activity. CONDITION OF RECORDING drowsy and sleep EEG NUMBER [id number] CLINICAL HISTORY patient has been admitted to the hospital for the seizure-like activity she slept throughout the setup and tracing EEG has been ordered for change in the mental status with the possibility of seizures. EEG DESCRIPTION background rhythm consists of medium voltage 5 to 7 hertz per 2nd theta activity admixed with 3 to 4 hertz per 2nd delta activity and with poor beatriz posterior gradient. Bilateral symmetrical sleep activity is noted during sleep. Photic stimulation not done. Hyperventilation not done. Non paroxysmal. Nonfocal. Nonlateralizing. IMPRESSION Abnormal record due to the presence of bihemispheric slow activity during wakefulness and drowsiness but without evidence of any active seizure. Clinical correlation recommended these findings could be suggestive of postictal state or encephalopathy.
[2023-08-11] MEDS: KCL 40 MEQ/D5 1/2NS 1,000 ML 75 ML IV CONT (11:39)
[2023-08-11 12:30] LABS: Glucose Point of Care 118 mg/dl (65-105)
--- NOTE | 2023-08-11 13:48 | PCSTNOTE ---
SIERRA Armstrong, reported patient remains sleepy this afternoon.
[2023-08-11] MEDS: AZITHROMYCIN 500 MG/NS 250 ML 500 MG/250 ML BAG 250 MG IVPB (14:33)
[2023-08-11 17:14] LABS: Glucose Point of Care 109 mg/dl (65-105)
[2023-08-11 21:21] LABS: Alanine Aminotransferase 12 U/L (6-35); Albumin Level 3.1 g/dL (3.5-5.1); Alkaline Phosphatase 65 U/L (38-126); Anion Gap 9 mmol/L (8-16); Aspartate Amino Transferase 19 U/L (14-36); Bilirubin,Total 0.7 mg/dL (0.2-1.3); Blood Urea Nitrogen 10 mg/dL (7-17); Carbon Dioxide 18 mmol/L (22-30); Chloride 120 mmol/L (98-107); Estimated CRCL calculation 50 ml/min; Estimated Glomerular Filt Rate > 60; Glucose 120 mg/dL (65-110); Potassium 3.6 mmol/L (3.4-5.0); Sodium 147 mmol/L (137-145)
[2023-08-11 23:51] LABS: Glucose Point of Care 122 mg/dl (65-105)
[2023-08-12] VITALS (9 sets, daily range): BP systolic 128–137; BP diastolic 93–102; PULSE 75–96; RESP 14–18; TEMP 36.3–37; O2SAT 96–98
[2023-08-12 05:50] LABS: Glucose Point of Care 122 mg/dl (65-105)
[2023-08-12 06:17] LABS: Hematocrit 43.3 % (37.0-47.0); Mean Corpuscular HGB Conc 32.3 g/dl (32-36); Mean Corpuscular Volume 95.8 fl (80-100); Mean Platelet Volume 10.5 fl (7.4-10.4); Platelet Count Result 198 k/mm3 (150-375); Red Blood Count 4.52 M/mm3 (4.2-5.4); White Blood Count 9.4 K/mm3 (4.5-10.0)
[2023-08-12 06:24] LABS: Alanine Aminotransferase 13 U/L (6-35); Alkaline Phosphatase 62 U/L (38-126); Anion Gap 4 mmol/L (8-16); Aspartate Amino Transferase 20 U/L (14-36); Bilirubin,Total 0.8 mg/dL (0.2-1.3); Blood Urea Nitrogen 8 mg/dL (7-17); Calcium 8.2 mg/dL (8.4-10.2); Carbon Dioxide 21 mmol/L (22-30); Chloride 118 mmol/L (98-107); Estimated CRCL calculation 58 ml/min; Estimated Glomerular Filt Rate > 60; Glucose 127 mg/dL (65-110); Magnesium 1.9 mg/dL (1.6-2.3); Potassium 3.6 mmol/L (3.4-5.0); Sodium 143 mmol/L (137-145)
[2023-08-12] MEDS: levETIRAcetam 500MG/NACL 100ML 500 MG/100 ML BAG 400 MG IVPB ×2 (08:58→20:57)
--- NOTE | 2023-08-12 11:26 | PCSTNOTE ---
Please refer to the Bedside Swallow Evaluation in the EMR. Please note, silent aspiration cannot be ruled out at bedside.
[2023-08-12 12:23] LABS: Glucose Point of Care 109 mg/dl (65-105)
--- NOTE | 2023-08-12 13:11 | PM.IMPN ---
Progress Note: A&P Assessment and Plan (1) AMS (altered mental status): Code(s): R41.82 - Altered mental status, unspecified Status: Acute Assessment and Plan: Patient presented to ED due to acute altered mental status and witnessed siezure. Neurology was consulted and we appreciate recommendations for care. Contacted nursing staff at [facility] and they confirmed that patient baseline behavior is what is being exhibited at this admission. Neurology suggest that patient could be in post-ictal state and placed orders for IV keppra EEG study findings and they note Abnormal record due to the presence of bihemispheric slow activity during wakefulness and drowsiness but without evidence of any active seizure. Clinical correlation recommended these findings could be suggestive of postictal state or encephalopathy. (2) Urinary tract infection: Code(s): N39.0 - Urinary tract infection, site not specified Status: Acute Assessment and Plan: UA appears infectious. Urine culture positive for E coli ESBL. Patient was recently started on ceftriaxone but this was discontinued and meropenem started. (3) Pneumonia: Code(s): J18.9 - Pneumonia, unspecified organism Status: Acute Assessment and Plan: 08/09- Chest xray on admission notes: New airspace opacities in right upper lung zone suspicious for pneumonia. Continue IV antibiotics. (4) Dementia: Code(s): F03.90 - Unspecified dementia, unspecified severity, without behavioral disturbance, psychotic disturbance, mood disturbance, and anxiety Status: Acute Assessment and Plan: Patient presents with altered mental status. She responds minimally with short verbal answers of yes or no. Patient baseline mentation can not be fully assessed as she only responds minimally to questions or commands. opens eyes occasionally and has poor PO intake at most times. Speech therapy stating they recommend palliative feedings there is risk for aspiration. (5) Physical deconditioning: Code(s): R53.81 - Other malaise Status: Acute Assessment and Plan: Patient does not move any extremity to command. Contact made with [facility] from which patient was admitted, they confirm that the present behavior that patient is exhibiting is her baseline since her admission at that facility. They noted that she is a bedridden, total care patient, with minimal movement, opens eyes occasionally and has poor PO intake at most times. Will need to discuss further care options with to appropriate care. (6) Hydrocephalus: Code(s): G91.9 - Hydrocephalus, unspecified Status: Acute Assessment and Plan: 08/08 CT notes : Chronic ventriculomegaly involving the lateral and third ventricles. Correlate clinically for normal pressure hydrocephalus. 08/09: Patient hx notes hydrocephalus. Patient with decreased mentation to question symptoms. 08/10: Neurology at bedside for patient assessment and notes that CT scan the brain shows evidence for hydrocephalus. This had been noted in the past also and not considered to be an acute finding. 08/11: Neurology consulted and documented EEG study findings and they note Abnormal record due to the presence of bihemispheric slow activity during wakefulness and drowsiness but without evidence of any active seizure. Clinical correlation recommended these findings could be suggestive of postictal state or encephalopathy. (7) Failure to thrive in adult: Code(s): R62.7 - Adult failure to thrive Status: Acute Assessment and Plan: 08/09: Per nursing staff at [facility], the SNF from which the patient was admitted the patient has exhibited failure to thrive. They note that patient has poor PO intake, as she often refuses to eat many of the options they provide. They note that they have tried many measures and options to aid the patient with
[2023-08-12] MEDS: MEROPENEM 1 GM/NS 100 ML 1 GM/100 ML BAG IVPB ×2 (16:31→20:57)
[2023-08-12 17:10] LABS: Glucose Point of Care 101 mg/dl (65-105)
[2023-08-13] VITALS (12 sets, daily range): BP systolic 107–137; BP diastolic 80–99; PULSE 77–97; RESP 14–16; TEMP 36.1–36.4; O2SAT 93–98
[2023-08-13 05:08] LABS: Glucose Point of Care 110 mg/dl (65-105)
[2023-08-13 05:08] LABS: Glucose Point of Care 89 mg/dl (65-105)
[2023-08-13] MEDS: MEROPENEM 1 GM/NS 100 ML 1 GM/100 ML BAG IVPB ×2 (05:48→13:07)
[2023-08-13 06:16] LABS: Hematocrit 46.9 % (37.0-47.0); Hemoglobin 14.8 g/dL (12.0-15.0); Mean Corpuscular HGB Conc 31.6 g/dl (32-36); Mean Corpuscular Hemoglobin 31.2 pg (26-34); Mean Corpuscular Volume 98.9 fl (80-100); Mean Platelet Volume 11.2 fl (7.4-10.4); Platelet Count Result 205 k/mm3 (150-375); Red Blood Count 4.74 M/mm3 (4.2-5.4); Red Cell Distribution Width 16.9 % (11.5-14.5); White Blood Count 9.7 K/mm3 (4.5-10.0)
[2023-08-13 06:45] LABS: Alanine Aminotransferase 12 U/L (6-35); Alkaline Phosphatase 66 U/L (38-126); Anion Gap 5 mmol/L (8-16); Aspartate Amino Transferase 19 U/L (14-36); Blood Urea Nitrogen 7 mg/dL (7-17); Calcium 8.3 mg/dL (8.4-10.2); Carbon Dioxide 22 mmol/L (22-30); Chloride 112 mmol/L (98-107); Estimated CRCL calculation 50 ml/min; Estimated Glomerular Filt Rate > 60; Glucose 101 mg/dL (65-110); Potassium 3.5 mmol/L (3.4-5.0); Sodium 139 mmol/L (137-145)
[2023-08-13] MEDS: levETIRAcetam 500MG/NACL 100ML 500 MG/100 ML BAG 400 MG IVPB ×2 (09:38→22:19)
--- NOTE | 2023-08-13 10:54 | PCNFU ---
Nutrition Follow-Up Complete: Inadequate oral intake related to decreased ability to take in PO, as evidenced by NPO order, episode of possible choking Severe Protein Calorie Malnutrition related to inadequate protein-energy intake with increased protein-energy needs in setting of acute disease(Dysphagia) as evidenced by < 50% estimated energy needs for >/= 5 days: severe muscle wasting (temporalis) and moderate subcutaneous fat loss (orbital fat pads). Goal: Meet estimated nutrition needs Pt current nutrition is NPO x 7 days. Nutrition recommendation: Tube feedings of Jevity 1.5 goal rate at 45 ml/hr. Last recorded weight is 52.6 kg Bowel Motility:+BM reported 08/07 Labs Reviewed:Alb 3.0 Meds Noted: Keppra, Meropenem,Potassium Chloride in Dextrose Skin: WNL Additional Notes: Patient seen today for nutrition follow up. MBS performed on 08/12-recommending non oral feedings. Spoke with Hospitalist today regarding tube feedings, with plans to speak with family today regarding plan of care. If family would like to continue aggressive care, recommending Jevity 1.5 at 20 ml/hr advance by 10 ml q 4 hours to goal rate of 45 ml/hr. Flush 100 ml q 4 hours. Tube feeding meeting 1484 kcals/63 gms protein/752 ml water. Monitoring intakes, weights, labs, plan of care, diet orders, swallowing ability every Thursday and Thursday.
--- NOTE | 2023-08-13 11:02 | WPDNEUROPN ---
Progress Note: A&P Assessment and Plan (1) Observed seizure-like activity: Code(s): R56.9 - Unspecified convulsions Status: Acute (2) Hydrocephalus: Code(s): G91.9 - Hydrocephalus, unspecified Status: Acute (3) Dementia: Code(s): F03.90 - Unspecified dementia, unspecified severity, without behavioral disturbance, psychotic disturbance, mood disturbance, and anxiety Status: Acute Plan the patient is currently on Keppra 500 mg twice a day. EEG shows diffuse background slowing which is nonspecific given her diagnosis. No focal or paroxysmal epileptiform abnormalities were described. MRI and CT scan brain have shown evidence of hydrocephalus as previously known. Time Spent With Patient Time with patient: less than 15 minutes Subjective Date/time seen: 08/13/23 11:02 Interval history: Patient is unable to offer any history. Her eyes are open however see appears to be having irregular respiration suggestive of Taran-Hancock respiration. She apparently had not had any further seizures. She is currently on Keppra 1000 mg a day. EEG shows diffuse background slowing however no other specific abnormality was seen. CT scan of brain as well as MRI of the brain has shown evidence for normal pressure hydrocephalus. No adverse effect from medications have been reported. Review of Systems Review of Systems: Patient is unable to offer any history Exam Narrative: the patient is awake previous he has Taran-Hancock respiration. She does not respond to verbal stimuli. She responds to painful stimuli. no spasticity or involuntary movements seen. Deep tendon reflexes did not show any asymmetry. Objective Data Vital Signs Vital Signs: Vital Signs - 24 hr 08/12/23 12:00 08/12/23 14:00 08/12/23 16:00 Temperature 36.3 C L Pulse Rate 88 75 83 Respiratory Rate 18 Blood Pressure 130/93 H Pulse Oximetry 98 Oxygen Delivery 08/12/23 20:11 08/13/23 00:01 08/12/23 20:00 Temperature 36.5 C 36.4 C Pulse Rate 92 97 92 Respiratory Rate 14 14 16 Blood Pressure 128/102 H 130/99 H Pulse Oximetry 97 95 96 Oxygen Delivery Room Air 08/12/23 20:00 08/13/23 00:00 08/13/23 04:00 Temperature Pulse Rate 83 96 77 Respiratory Rate Blood Pressure Pulse Oximetry Oxygen Delivery 08/13/23 05:45 08/13/23 08:41 Temperature 36.2 C L Pulse Rate 96 Respiratory Rate 14 Blood Pressure 112/92 H Pulse Oximetry 96 93 Oxygen Delivery Room Air Intake/Output Intake/Output: Intake & Output 08/10/23 08/11/23 08/12/23 08/13/23 23:59 23:59 23:59 23:59 Intake Total 2400 1070 400 0 Output Total 50 50 200 Balance 2350 1070 350 -200 Meds/Results Medications: Active Medications Generic Name Dose Route Start Last Admin Trade Name Freq PRN Reason Stop Dose Admin Atorvastatin Calcium 20 mg 08/08/23 21:00 08/12/23 20:50 Atorvastatin 20 Mg Tablet PO Not Given HS MARILU Dextrose 12.5 gm 08/09/23 14:34 Dextrose 50% 25 Gm/50 Ml Syringe IV PUSH PRN PRN Hypoglycemia Protocol Docusate Sodium 100 mg 08/08/23 01:16 Docusate Sodium 100 Mg Capsule PO BID PRN Constipation Duloxetine HCl 30 mg 08/08/23 09:00 08/13/23 09:36 Duloxetine Hcl 30 Mg Capsule.Dr PO Not Given DAILY MARILU Glucagon 1 mg 08/09/23 14:34 Glucagon For Inj 1 Mg Vial IM PRN PRN Hypoglycemia Protocol Glucose 15 gm 08/09/23 14:34 Glucose Oral Gel 15 Gm Of Glucse In 37.5 Gm Tube PO PRN PRN Hypoglycemia Protocol Hydralazine HCl 10 mg 08/09/23 15:44 08/09/23 21:06 Hydralazine Hcl 20 Mg/Ml Vial IV PUSH 10 mg Q8H PRN Administration SBP > 160 Levetiracetam 500 mg in 100 mls @ 400 mls/hr 08/08/23 21:00 08/13/23 09:38 Keppra Iv IVPB 400 mls/hr Q12HR MARILU Administration Dextrose 1,000 mls @ 100 mls/hr 08/09/23 14:34 Dextrose 5% 1,000 Ml IVPB PRN PRN Hypo
--- NOTE | 2023-08-13 15:27 | PM.IMPN ---
Progress Note: A&P Assessment and Plan (1) AMS (altered mental status): Code(s): R41.82 - Altered mental status, unspecified Status: Acute Assessment and Plan: Patient presented to ED due to acute altered mental status and witnessed siezure. Neurology was consulted and we appreciate recommendations for care. Contacted nursing staff at [facility] and they confirmed that patient baseline behavior is what is being exhibited at this admission. Neurology suggest that patient could be in post-ictal state and placed orders for IV keppra EEG study findings and they note Abnormal record due to the presence of bihemispheric slow activity during wakefulness and drowsiness but without evidence of any active seizure. Clinical correlation recommended these findings could be suggestive of postictal state or encephalopathy. Patient back to baseline. (2) Urinary tract infection: Code(s): N39.0 - Urinary tract infection, site not specified Status: Acute Assessment and Plan: UA appears infectious. Urine culture positive for E coli ESBL. Patient was recently started on ceftriaxone but this was discontinued and meropenem started. Cannot be transitioned to PO due to failed speech evaluation Uncomplicated cystitis -- will give one time dose of Gentamicin. (3) Pneumonia: Code(s): J18.9 - Pneumonia, unspecified organism Status: Acute Assessment and Plan: 08/09 - Chest xray on admission notes: New airspace opacities in right upper lung zone suspicious for pneumonia. Continue IV antibiotics. (4) Dementia: Code(s): F03.90 - Unspecified dementia, unspecified severity, without behavioral disturbance, psychotic disturbance, mood disturbance, and anxiety Status: Acute Assessment and Plan: Patient presents with altered mental status. She responds minimally with short verbal answers of yes or no. Patient baseline mentation can not be fully assessed as she only responds minimally to questions or commands. opens eyes occasionally and has poor PO intake at most times. Speech therapy stating they recommend palliative feedings there is risk for aspiration. (5) Physical deconditioning: Code(s): R53.81 - Other malaise Status: Acute Assessment and Plan: Patient does not move any extremity to command. Contact made with [facility] from which patient was admitted, they confirm that the present behavior that patient is exhibiting is her baseline since her admission at that facility. They noted that she is a bedridden, total care patient, with minimal movement, opens eyes occasionally and has poor PO intake at most times. Will need to discuss further care options with to appropriate care. (6) Hydrocephalus: Code(s): G91.9 - Hydrocephalus, unspecified Status: Acute Assessment and Plan: 08/08 CT notes : Chronic ventriculomegaly involving the lateral and third ventricles. Correlate clinically for normal pressure hydrocephalus. 08/09: Patient hx notes hydrocephalus. Patient with decreased mentation to question symptoms. 08/10: Neurology at bedside for patient assessment and notes that CT scan the brain shows evidence for hydrocephalus. This had been noted in the past also and not considered to be an acute finding. 08/11: Neurology consulted and documented EEG study findings and they note Abnormal record due to the presence of bihemispheric slow activity during wakefulness and drowsiness but without evidence of any active seizure. Clinical correlation recommended these findings could be suggestive of postictal state or encephalopathy. (7) Failure to thrive in adult: Code(s): R62.7 - Adult failure to thrive Status: Acute Assessment and Plan: 08/09: Per nursing staff at [facility], the [facility] from which the patient was admitted the patient has exhibited failure to thrive. They note th
--- NOTE | 2023-08-13 16:27 | WPDGICN ---
Assessment and Plan Assessment and plan (1) Acute metabolic encephalopathy: Code(s): G93.41 - Metabolic encephalopathy Status: Acute Assessment and Plan: admitted with seizure, still lethargic with mental declining she is not eating and prognosis is guarded neurology on board family decided against g tube placement (2) Observed seizure-like activity: Code(s): R56.9 - Unspecified convulsions Status: Acute Assessment and Plan: on meds (3) Severe malnutrition: Code(s): E43 - Unspecified severe protein-calorie malnutrition Status: Acute Assessment and Plan: not eating for days and also with hypokalemia- treated (4) Dementia: Code(s): F03.90 - Unspecified dementia, unspecified severity, without behavioral disturbance, psychotic disturbance, mood disturbance, and anxiety Status: Acute (5) Hydrocephalus: Code(s): G91.9 - Hydrocephalus, unspecified Status: Acute Assessment and Plan: ct scan reviewed (6) Failure to thrive in adult: Code(s): R62.7 - Adult failure to thrive Status: Acute (7) Acute hypokalemia: Code(s): E87.6 - Hypokalemia Status: Acute GI Consult Note Consult date/time: 08/13/23 16:27 Reason for consult: seizure, failure to thrive, malnutrition HPI: Anu Aguilar is a 73 year old female with history of dementia, [facility] resident who was transferred here with seizure-like activity. She also has GERD, hyperlipidemia, hypertension, and hypothyroidism.? She has not been eating, she is lethargic and not responding much, also poor oral intake with hypokalemia, failure to thrive. CT scan of the head reviewed, extensive nonspecific white matter disease in addition to chronic ventriculomegaly involving the l lateral? and 3rd ventricle raising the possibility of hydrocephalus versus brain atrophy I was called today to talk to family about possibility of G tube feeding. Daughter just arrived and is at bedside. After lengthy conversation they do not want to pursue any invasive procedures. Review of Systems Review of Systems: ROS unobtainable: Yes unobtainable due to medical condition and unobtainable due to mental status PMFSH Past Medical History Medical History Anxiety and depression Cholecystostomy drain infection Dementia GERD (gastroesophageal reflux disease) Hyperlipemia Hypertension Hypothyroid Surgical History Surgical History H/O: hysterectomy Family History Family History Father Acute myocardial infarction Other Unknown family medical history Social History Social History Social History: Patient seems to be confused and is currently a full code. The chart has Tracy salinas and Luis Aguilar as people to notify. The patient has 2 children. She is retired from working in a [employer] plant. The patient continues to smoke at home. No alcohol marijuana or illicit drugs. The is the durable power city attorney for healthcare. Code status full code Smoking packs per day: 1.5 Smoking cigarettes per day: 30.0 Smoking status: Unknown if ever smoked Tobacco type: cigarettes Alcohol intake: unknown Substance use: unknown Substance use type: does not use Do You Feel Safe in your Home?: No Lack of Transportation: YES Lack of Food: Never True Current Housing: I Have Housing Concerned About Future Housing: No Difficulty Paying Gas/Electric Bills: No Difficulty Paying for Meds: No Currently Unemployed: No Education: Don't Know Difficulty w/ Childcare or Family Care: No Gender identity (if verbalized by the patient): Female Spiritual care concerns: No Meds Home Medications and Allergies Home Medications Medication Instructions Re
[2023-08-13] MEDS: SCOPOLAMINE 1 MG PATCH 1 PATCH TRANSDERM (17:41)
[2023-08-14 04:10] VITALS: BP 109/74; PULSE 90; RESP 20; TEMP 35.7; O2SAT 93
[2023-08-14 05:16] LABS: Hematocrit 49.8 % (37.0-47.0); Hemoglobin 15.7 g/dL (12.0-15.0); Mean Corpuscular HGB Conc 31.5 g/dl (32-36); Mean Corpuscular Hemoglobin 31.2 pg (26-34); Platelet Count Result 207 k/mm3 (150-375); Red Blood Count 5.03 M/mm3 (4.2-5.4); Red Cell Distribution Width 17.1 % (11.5-14.5); White Blood Count 10.1 K/mm3 (4.5-10.0)
[2023-08-14 05:26] LABS: Anion Gap 6 mmol/L (8-16); Blood Urea Nitrogen 9 mg/dL (7-17); Calcium 8.2 mg/dL (8.4-10.2); Carbon Dioxide 20 mmol/L (22-30); Chloride 110 mmol/L (98-107); Estimated CRCL calculation 56 ml/min; Estimated Glomerular Filt Rate > 60; Glucose 97 mg/dL (65-110); Potassium 3.5 mmol/L (3.4-5.0); Sodium 136 mmol/L (137-145)
[2023-08-14] MEDS: levETIRAcetam 500MG/NACL 100ML 500 MG/100 ML BAG 400 MG IVPB (08:29)
--- NOTE | 2023-08-14 13:00 | P.DS_ITS ---
DS: Admitting Diagnosis Discharge Date 08/14/23 Admitting Diagnosis Seizure DS: Discharge Diagnosis Discharge Diagnosis (1) AMS (altered mental status): Code(s): R41.82 - Altered mental status, unspecified Status: Acute Assessment and Plan: * Patient presented to ED due to acute altered mental status and witnessed siezure. * Neurology was consulted and we appreciate recommendations for care. * Contacted nursing staff at [facility] and they confirmed that patient baseline behavior is what is being exhibited at this admission. * Neurology suggest that patient could be in post-ictal state and placed orders for IV keppra * EEG study findings and they note Abnormal record due to the presence of bihemispheric slow activity during wakefulness and drowsiness but without evidence of any active seizure. Clinical correlation recommended these findings could be suggestive of postictal state or encephalopathy. * Patient back to baseline. (2) Urinary tract infection: Code(s): N39.0 - Urinary tract infection, site not specified Status: Acute Assessment and Plan: * UA appears infectious. * Urine culture positive for E coli ESBL. * Patient was recently started on ceftriaxone but this was discontinued and meropenem started. * Cannot be transitioned to PO due to failed speech evaluation * Uncomplicated cystitis -- will give one time dose of Gentamicin. (3) Pneumonia: Code(s): J18.9 - Pneumonia, unspecified organism Status: Acute Assessment and Plan: * 08/09 - Chest xray on admission notes: New airspace opacities in right upper lung zone suspicious for pneumonia. * Continue IV antibiotics. (4) Dementia: Code(s): F03.90 - Unspecified dementia, unspecified severity, without behavioral disturbance, psychotic disturbance, mood disturbance, and anxiety Status: Acute Assessment and Plan: Patient presents with altered mental status. She responds minimally with short verbal answers of yes or no. * Patient baseline mentation can not be fully assessed as she only responds minimally to questions or commands. * opens eyes occasionally and has poor PO intake at most times. * Speech therapy stating they recommend palliative feedings there is risk for aspiration. (5) Physical deconditioning: Code(s): R53.81 - Other malaise Status: Acute Assessment and Plan: Patient does not move any extremity to command. Contact made with [facility] from which patient was admitted, they confirm that the present behavior that patient is exhibiting is her baseline since her admission at that facility. They noted that she is a bedridden, total care patient, with minimal movement, opens eyes occasionally and has poor PO intake at most times. Will need to discuss fu rther care options with to appropriate care. (6) Hydrocephalus: Code(s): G91.9 - Hydrocephalus, unspecified Status: Acute Assessment and Plan: 08/08 CT notes : Chronic ventriculomegaly involving the lateral and third ventricles. Correlate clinically for normal pressure hydrocephalus. 08/09: Patient hx notes hydrocephalus. Patient with decreased mentation to question symptoms. 08/10: Neurology at bedside for patient assessment and notes that CT scan the brain shows evidence for hydrocephalus. This had been noted in the past also and not considered to be an acute finding. 08/11: Neurology consulted and documented EEG study findings and they
[2023-08-14 13:57] VITALS: BP 115/74; PULSE 93; RESP 19; TEMP 36.3; O2SAT 96
[2023-08-31 15:58] LABS: Glucose Point of Care 108 mg/dl (65-105)
== END 2023-08-14 14:02 | disposition hospice, inpatient (51) | DRG 100 ==
LOC: ANHED 21:48 → ANH2MED 22:47
PROVIDERS: Nurse Practitioner Family; Psychiatry & Neurology Neurology; Admitting Provider Internal Medicine; Emergency Provider Emergency Medicine; PCP Internal Medicine; Visit Provider Internal Medicine Critical Care Medicine
DX: R56.9 Unspecified convulsions (principal); J18.9 Pneumonia, unspecified organism; N39.0 Urinary tract infection, site not specified; G93.40 Encephalopathy, unspecified; G91.9 Hydrocephalus, unspecified; B96.20 Unspecified Escherichia coli [E. coli] as the cause of diseases classified elsewhere; F41.8 Other specified anxiety disorders; F03.90 Unspecified dementia, unspecified severity, without behavioral disturbance, psychotic disturbance, mood disturbance, and anxiety; K21.9 Gastro-esophageal reflux disease without esophagitis; E78.5 Hyperlipidemia, unspecified; I10 Essential (primary) hypertension; E03.9 Hypothyroidism, unspecified; F17.210 Nicotine dependence, cigarettes, uncomplicated; E87.6 Hypokalemia; R62.7 Adult failure to thrive; Z90.710 Acquired absence of both cervix and uterus; Z74.01 Bed confinement status
CPT/HCPCS: 36415; 70450; 71045; 76775; 80048; 80053; 81001; 82140; 82306; 82607; 82746; 82948; 83735; 84132; 85025; 85027; 85610; 85730; 87086; 87186; 92611; 93005; 95816; 96365; 96375; 99285; A9270; J0360; J0456; J0696; J1580; J1953; J2185; J3480; J7030; J7040; J7042; J7070

== ENCOUNTER 2023-08-14 14:03 | HOS | payer OTHER, MEDICARE, SELFPAY ==
[2023-08-14 15:16] VITALS: BMI 26.3
[2023-08-14 16:07] VITALS: PULSE 88; RESP 20
[2023-08-14] MEDS: MORPHINE 50 MG/NS 100ML (*CRX) 50 MG/100 ML BAG IV CONT (16:07)
[2023-08-14] MEDS: levETIRAcetam 500MG/NACL 100ML 500 MG/100 ML BAG 400 MG IVPB (16:11)
[2023-08-14 20:00] VITALS: BP 110/71; PULSE 69; RESP 10; TEMP 36.6; O2SAT 90
--- NOTE | 2023-08-14 20:11 | PM.IMHP ---
H&P: HPI History of Present Illness Date/Time: 08/14/23 20:11 Chief Complaint: uncontrolled dyspnea Narrative: This 73 y/o female had a gradual decline over the past 3 years. She was admitted after a seizure. She failed to regain consciousness. She has not eaten or drunk anything for about 9 days. Over the past 3 years she experienced increasing difficulties with ambulation, urinary incontinence, and memory. She continue to eat well until her generalized tonic-clonic seizure on 08/08/2023. During hospitalization she was treated for esbl e coli uti and rul infiltrate c/w aspiration pneumonia. Prior to onset of her dementia, she was healthy with the exception of hypertension. Hx obtained from chart review and from spouse at bedside. Review of Systems Review of Systems: ROS unobtainable: Yes unobtainable due to medical condition PMFSH Past Medical History Medical History Anxiety and depression Cholecystostomy drain infection Dementia GERD (gastroesophageal reflux disease) Hyperlipemia Hypertension Hypothyroid Surgical History Surgical History H/O: hysterectomy Family History Family History Father Acute myocardial infarction Other Unknown family medical history Social History Social History (Updated 08/14/23 @ 20:39 by Darnell Vines MD) Social History: [place] resident. . Former smoker. Code status DNR. Smoking packs per day: 1.5 Smoking cigarettes per day: 30.0 Smoking status: Former smoker Tobacco type: cigarettes Alcohol intake: unknown Substance use: never Substance use type: does not use Do You Feel Safe in your Home?: No Lack of Transportation: YES Lack of Food: Never True Current Housing: I Have Housing Concerned About Future Housing: No Difficulty Paying Gas/Electric Bills: No Difficulty Paying for Meds: No Currently Unemployed: No Education: Don't Know Difficulty w/ Childcare or Family Care: No Gender identity (if verbalized by the patient): Female Spiritual care concerns: No Meds Home Medications and Allergies Allergies Allergy/AdvReac Type Severity Reaction Status Date / Time meperidine Allergy Mild Unknown Verified 11/19/20 03:06 Vital Signs Vital Signs - 24 hr 08/14/23 15:21 08/14/23 16:07 Pulse Rate 88 Respiratory Rate 20 Oxygen Delivery Room Air Exam Narrative: GEN: Elderly female lying in hospital bed is tachypneic and somewhat restless. PSYCH: Minimally responsive to verbal and tactile stimuli. Orientation to person unclear. Neck: No JVD. Chest: Coarse BS, tachypnea. Heart: NL S1,2, RR, no audible murmur. Extr: Trace pitting edema and 1-2+ non-pitting edema of feet and legs. Abs: BS hypoactive, soft, no abivous tenderness, no palpable mass. MS: No gross deformity to visual inspection. Neuro: CN symmetric to visual inspection. Assessment and Plan Assessment and plan (1) Palliative care encounter: Code(s): Z51.5 - Encounter for palliative care Status: Acute Assessment and Plan: Meets in patient hospice criteria due to requiring continuous IV morphine for control of dyspnea. PRN palliative regimen ordered. 08/14/2023 discussed care and prognosis with family at bedside. (2) Dementia: Code(s): F03.90 - Unspecified dementia, unspecified severity, without behavioral disturbance, psychotic disturbance, mood disturbance, and anxiety Status: Acute (3) Hydrocephalus: Code(s): G91.9 - Hydrocephalus, unspecified Status: Acute (4) Severe malnutrition: Code(s): E43 - Unspecified severe protein-calorie malnutrition Status: Acute (5) Acute metabolic encephalopathy: Code(s): G93.41 - Metabolic encephalopathy Status: Acute (6) Observed seizure-like activity: Code(s):
[2023-08-15] MEDS: levETIRAcetam 500MG/NACL 100ML 500 MG/100 ML BAG 400 MG IVPB ×2 (04:06→16:56)
[2023-08-15 08:00] VITALS: O2SAT 100
[2023-08-15 10:21] VITALS: BP 95/68; PULSE 73; RESP 6; TEMP 36.4; O2SAT 100
--- NOTE | 2023-08-15 12:21 | PM.IMPN ---
Progress Note: A&P Assessment and Plan (1) Palliative care encounter: Code(s): Z51.5 - Encounter for palliative care Status: Acute Assessment and Plan: Meets in patient hospice criteria due to requiring continuous IV morphine for control of dyspnea. PRN palliative regimen ordered. 08/14/2023 discussed care and prognosis with family at bedside. (2) Dementia: Code(s): F03.90 - Unspecified dementia, unspecified severity, without behavioral disturbance, psychotic disturbance, mood disturbance, and anxiety Status: Acute (3) Hydrocephalus: Code(s): G91.9 - Hydrocephalus, unspecified Status: Acute (4) Severe malnutrition: Code(s): E43 - Unspecified severe protein-calorie malnutrition Status: Acute (5) Acute metabolic encephalopathy: Code(s): G93.41 - Metabolic encephalopathy Status: Acute (6) Observed seizure-like activity: Code(s): R56.9 - Unspecified convulsions Status: Acute (7) Pneumonia: Code(s): J18.9 - Pneumonia, unspecified organism Status: Acute (8) Urinary tract infection: Code(s): N39.0 - Urinary tract infection, site not specified Status: Acute Subjective Date/time seen: 08/15/23 12:21 Interval history: Remained comfortable on IV morphine overnight. Review of Systems Review of Systems: ROS unobtainable: Yes unobtainable due to medical condition Exam Narrative: GEN: Elderly female lying in hospital bed is tachypneic and somewhat restless. PSYCH: Minimally responsive to verbal and tactile stimuli. Orientation to person unclear. Neck: No JVD. Chest: Coarse BS, tachypnea. Heart: NL S1,2, RR, no audible murmur. Extr: Trace pitting edema and 1-2+ non-pitting edema of feet and legs. Abs: BS hypoactive, soft, no abivous tenderness, no palpable mass. MS: No gross deformity to visual inspection. Neuro: CN symmetric to visual inspection. Objective Data Vital Signs Vital Signs: Vital Signs - 24 hr 08/14/23 15:21 08/14/23 16:07 08/14/23 20:00 Temperature 97.9 F Pulse Rate 88 69 Respiratory Rate 20 10 L Blood Pressure 110/71 Pulse Oximetry 90 Oxygen Delivery Room Air 08/14/23 20:00 08/15/23 10:21 Temperature 97.6 F Pulse Rate 73 Respiratory Rate 6 L Blood Pressure 95/68 L Pulse Oximetry 100 Oxygen Delivery Room Air Intake/Output Intake/Output: Intake & Output 08/12/23 08/13/23 08/14/23 08/15/23 23:59 23:59 23:59 23:59 Intake Total 100 100 Balance 100 100 Meds/Results Medications: Active Medications Generic Name Dose Route Start Last Admin Trade Name Freq PRN Reason Stop Dose Admin Artificial Tears 1 - 2 drop 08/14/23 15:43 Artificial Tears Ophth Soln 15 Ml Bottle EACH EYE Q8H PRN Dry Eye(s) Bisacodyl 10 mg 08/14/23 15:44 Bisacodyl 10 Mg Suppository RECTAL QAM PRN Constipation Glycopyrrolate 0.1 mg 08/14/23 15:42 Glycopyrrolate Inj (*Sp) 0.2 Mg/Ml Vial IV PUSH Q4H PRN Secretions Morphine Sulfate 50 mg in 100 mls @ 2 mls/hr 08/14/23 15:40 08/14/23 16:07 IV CONT 1 mg/hr .Q24H MARILU 2 mls/hr Administration 1 MG/HR Levetiracetam 500 mg in 100 mls @ 400 mls/hr 08/14/23 16:00 08/15/23 04:21 Keppra Iv IVPB Infused Q12H MARILU Infusion Lorazepam 1 mg 08/14/23 15:42 Lorazepam Inj (*Crx) 2 Mg/Ml Vial IV PUSH Q4H PRN Restlessness Morphine Sulfate 2 mg 08/14/23 15:41 Morphine Sulfate (*Crx) 2 Mg/Ml Inj IV PUSH Q2H PRN Pain/Shortness of breath Prochlorperazine Edisylate 10 mg 08/14/23 15:43 Prochlorperazine Edisylate 10 Mg/2 Ml Vial IV PUSH Q6H PRN Nausea And Vomiting
[2023-08-15 17:22] VITALS: PULSE 73; RESP 6
[2023-08-15] MEDS: MORPHINE 50 MG/NS 100ML (*CRX) 50 MG/100 ML BAG IV CONT (17:22)
[2023-08-15 20:00] VITALS: BP 138/86; PULSE 72; RESP 10; TEMP 36.7; O2SAT 91
--- NOTE | 2023-08-15 20:17 | PC.NURSE ---
On 08/15/23, the KNITTER HAND, Ansley Loaiza, provided care and [facility]. I have reviewed the KNITTER HAND's documentation and agree with the findings.
[2023-08-16] MEDS: levETIRAcetam 500MG/NACL 100ML 500 MG/100 ML BAG 400 MG IVPB ×2 (04:15→16:04)
[2023-08-16 08:13] VITALS: BP 148/91; PULSE 72; RESP 12; TEMP 36.6; O2SAT 95
--- NOTE | 2023-08-16 14:25 | PM.IMPN ---
Progress Note: A&P Assessment and Plan (1) Palliative care encounter: Code(s): Z51.5 - Encounter for palliative care Status: Acute Assessment and Plan: Meets in patient hospice criteria due to requiring continuous IV morphine for control of dyspnea. PRN palliative regimen ordered. 08/14/2023 discussed care and prognosis with family at bedside. (2) Dementia: Code(s): F03.90 - Unspecified dementia, unspecified severity, without behavioral disturbance, psychotic disturbance, mood disturbance, and anxiety Status: Acute (3) Hydrocephalus: Code(s): G91.9 - Hydrocephalus, unspecified Status: Acute (4) Severe malnutrition: Code(s): E43 - Unspecified severe protein-calorie malnutrition Status: Acute (5) Acute metabolic encephalopathy: Code(s): G93.41 - Metabolic encephalopathy Status: Acute (6) Observed seizure-like activity: Code(s): R56.9 - Unspecified convulsions Status: Acute (7) Pneumonia: Code(s): J18.9 - Pneumonia, unspecified organism Status: Acute (8) Urinary tract infection: Code(s): N39.0 - Urinary tract infection, site not specified Status: Acute Subjective Date/time seen: 08/16/23 14:25 Interval history: Remained comfortable on IV morphine overnight. Review of Systems Review of Systems: ROS unobtainable: Yes unobtainable due to medical condition Exam Narrative: GEN: Elderly female lying in hospital bed PSYCH: Minimally responsive to verbal and tactile stimuli. Orientation to person unclear. Neck: No JVD. Chest: Coarse BS, tachypnea. Heart: NL S1,2, RR, no audible murmur. Extr: Trace pitting edema and 1-2+ non-pitting edema of feet and legs. Abs: BS hypoactive, soft, no abivous tenderness, no palpable mass. MS: No gross deformity to visual inspection. Neuro: CN symmetric to visual inspection. Objective Data Vital Signs Vital Signs: Vital Signs - 24 hr 08/15/23 17:22 08/15/23 17:22 08/15/23 20:00 Temperature 98.1 F Pulse Rate 73 73 72 Respiratory Rate 6 L 6 L 10 L Blood Pressure 138/86 Pulse Oximetry 91 Oxygen Delivery 08/15/23 20:00 08/16/23 08:13 08/16/23 08:10 Temperature 97.9 F Pulse Rate 72 72 Respiratory Rate 10 L 12 Blood Pressure 148/91 H Pulse Oximetry 91 95 Oxygen Delivery Room Air Room Air Intake/Output Intake/Output: Intake & Output 08/13/23 08/14/23 08/15/23 08/16/23 23:59 23:59 23:59 23:59 Intake Total 100 240.3 Output Total 100 150 Balance 100 140.3 -150 Meds/Results Medications: Active Medications Generic Name Dose Route Start Last Admin Trade Name Freq PRN Reason Stop Dose Admin Artificial Tears 1 - 2 drop 08/14/23 15:43 Artificial Tears Ophth Soln 15 Ml Bottle EACH EYE Q8H PRN Dry Eye(s) Bisacodyl 10 mg 08/14/23 15:44 Bisacodyl 10 Mg Suppository RECTAL QAM PRN Constipation Glycopyrrolate 0.1 mg 08/14/23 15:42 Glycopyrrolate Inj (*Sp) 0.2 Mg/Ml Vial IV PUSH Q4H PRN Secretions Morphine Sulfate 50 mg in 100 mls @ 2 mls/hr 08/14/23 15:40 08/15/23 17:22 IV CONT 1 mg/hr .Q24H MARILU 2 mls/hr Administration 1 MG/HR Levetiracetam 500 mg in 100 mls @ 400 mls/hr 08/14/23 16:00 08/16/23 04:15 Keppra Iv IVPB 400 mls/hr Q12H MARILU Administration Lorazepam 1 mg 08/14/23 15:42 Lorazepam Inj (*Crx) 2 Mg/Ml Vial IV PUSH Q4H PRN Restlessness Morphine Sulfate 2 mg 08/14/23 15:41 Morphine Sulfate (*Crx) 2 Mg/Ml Inj IV PUSH Q2H PRN Pain/Shortness of breath Prochlorperazine Edisylate 10 mg 08/14/23 15:43 Prochlorperazine Edisylate 10 Mg/2 Ml Vial IV PUSH Q6H PRN Nausea And Vomiting
[2023-08-16] MEDS: MORPHINE 50 MG/NS 100ML (*CRX) 50 MG/100 ML BAG IV CONT (16:26)
--- NOTE | 2023-08-16 19:54 | PC.NURSE ---
On 08/16/23, the LAMINATE FLOOR INSTALLER, Ansley Loaiza, provided care and completed [employer] documentation on this patient. I have reviewed the LAMINATE FLOOR INSTALLER's documentation and agree with the findings.
[2023-08-16 20:00] VITALS: BP 89/63; PULSE 59; RESP 16; TEMP 36.1; O2SAT 95
[2023-08-17] MEDS: levETIRAcetam 500MG/NACL 100ML 500 MG/100 ML BAG 400 MG IVPB ×2 (04:42→17:19)
[2023-08-17 09:14] VITALS: BP 98/66; PULSE 60; RESP 5; TEMP 35.8; O2SAT 96
--- NOTE | 2023-08-17 16:08 | PM.IMPN ---
Progress Note: A&P Assessment and Plan (1) Palliative care encounter: Code(s): Z51.5 - Encounter for palliative care Status: Acute Assessment and Plan: Meets in patient hospice criteria due to requiring continuous IV morphine for control of dyspnea. PRN palliative regimen ordered. 08/14/2023 discussed care and prognosis with family at bedside. 08/17/2023 discussed care and imminent with family at bedside. (2) Dementia: Code(s): F03.90 - Unspecified dementia, unspecified severity, without behavioral disturbance, psychotic disturbance, mood disturbance, and anxiety Status: Acute (3) Hydrocephalus: Code(s): G91.9 - Hydrocephalus, unspecified Status: Acute (4) Severe malnutrition: Code(s): E43 - Unspecified severe protein-calorie malnutrition Status: Acute (5) Acute metabolic encephalopathy: Code(s): G93.41 - Metabolic encephalopathy Status: Acute (6) Observed seizure-like activity: Code(s): R56.9 - Unspecified convulsions Status: Acute (7) Pneumonia: Code(s): J18.9 - Pneumonia, unspecified organism Status: Acute (8) Urinary tract infection: Code(s): N39.0 - Urinary tract infection, site not specified Status: Acute Subjective Date/time seen: 08/17/23 16:08 Interval history: Remained comfortable on IV morphine overnight. Review of Systems Review of Systems: ROS unobtainable: Yes unobtainable due to medical condition Exam Narrative: GEN: Elderly female lying in hospital bed PSYCH: Minimally responsive to verbal and tactile stimuli. Orientation to person unclear. Neck: No JVD. Chest: Coarse BS, tachypnea. Heart: NL S1,2, RR, no audible murmur. Extr: Trace pitting edema and 1-2+ non-pitting edema of feet and legs. Abs: BS hypoactive, soft, no abivous tenderness, no palpable mass. MS: No gross deformity to visual inspection. Neuro: CN symmetric to visual inspection. Objective Data Vital Signs Vital Signs: Vital Signs - 24 hr 08/16/23 20:00 08/16/23 20:00 08/17/23 09:14 Temperature 97.0 F L 96.5 F L Pulse Rate 59 L 59 L 60 Respiratory Rate 16 16 5 L Blood Pressure 89/63 L 98/66 L Pulse Oximetry 95 95 96 Oxygen Delivery Room Air Intake/Output Intake/Output: Intake & Output 08/14/23 08/15/23 08/16/23 08/17/23 23:59 23:59 23:59 23:59 Intake Total 100 240.3 300 0 Output Total 100 200 Balance 100 140.3 100 0 Meds/Results Medications: Active Medications Generic Name Dose Route Start Last Admin Trade Name Freq PRN Reason Stop Dose Admin Artificial Tears 1 - 2 drop 08/14/23 15:43 Artificial Tears Ophth Soln 15 Ml Bottle EACH EYE Q8H PRN Dry Eye(s) Bisacodyl 10 mg 08/14/23 15:44 Bisacodyl 10 Mg Suppository RECTAL QAM PRN Constipation Glycopyrrolate 0.1 mg 08/14/23 15:42 Glycopyrrolate Inj (*Sp) 0.2 Mg/Ml Vial IV PUSH Q4H PRN Secretions Morphine Sulfate 50 mg in 100 mls @ 2 mls/hr 08/14/23 15:40 08/16/23 16:26 IV CONT 1 mg/hr .Q24H MARILU 2 mls/hr Administration 1 MG/HR Levetiracetam 500 mg in 100 mls @ 400 mls/hr 08/14/23 16:00 08/17/23 04:42 Keppra Iv IVPB 400 mls/hr Q12H MARILU Administration Lorazepam 1 mg 08/14/23 15:42 Lorazepam Inj (*Crx) 2 Mg/Ml Vial IV PUSH Q4H PRN Restlessness Morphine Sulfate 2 mg 08/14/23 15:41 Morphine Sulfate (*Crx) 2 Mg/Ml Inj IV PUSH Q2H PRN Pain/Shortness of breath Prochlorperazine Edisylate 10 mg 08/14/23 15:43 Prochlorperazine Edisylate 10 Mg/2 Ml Vial IV PUSH Q6H PRN Nausea And Vomiting
[2023-08-17] MEDS: GLYCOPYRROLATE INJ (*SP) 0.2 MG/ML VIAL 0.1 MG IV PUSH (17:09)
[2023-08-17] MEDS: MORPHINE 50 MG/NS 100ML (*CRX) 50 MG/100 ML BAG IV CONT (17:20)
[2023-08-17 19:54] VITALS: BP 130/72; PULSE 88; RESP 4; TEMP 36.7; O2SAT 97
[2023-08-17 20:00] VITALS: PULSE 88; RESP 4; O2SAT 97
[2023-08-18] MEDS: levETIRAcetam 500MG/NACL 100ML 500 MG/100 ML BAG 400 MG IVPB ×2 (04:01→17:25)
--- NOTE | 2023-08-18 15:31 | PM.IMPN ---
Progress Note: A&P Assessment and Plan (1) Palliative care encounter: Code(s): Z51.5 - Encounter for palliative care Status: Acute Assessment and Plan: Meets in patient hospice criteria due to requiring continuous IV morphine for control of dyspnea. PRN palliative regimen ordered. 08/14/2023 discussed care and prognosis with family at bedside. 08/17/2023 discussed care and imminent with family at bedside. 08/18/2023 imminent (2) Dementia: Code(s): F03.90 - Unspecified dementia, unspecified severity, without behavioral disturbance, psychotic disturbance, mood disturbance, and anxiety Status: Acute (3) Hydrocephalus: Code(s): G91.9 - Hydrocephalus, unspecified Status: Acute (4) Severe malnutrition: Code(s): E43 - Unspecified severe protein-calorie malnutrition Status: Acute (5) Acute metabolic encephalopathy: Code(s): G93.41 - Metabolic encephalopathy Status: Acute (6) Observed seizure-like activity: Code(s): R56.9 - Unspecified convulsions Status: Acute (7) Pneumonia: Code(s): J18.9 - Pneumonia, unspecified organism Status: Acute (8) Urinary tract infection: Code(s): N39.0 - Urinary tract infection, site not specified Status: Acute Subjective Date/time seen: 08/18/23 15:31 Interval history: Remained comfortable on IV morphine overnight. Review of Systems Review of Systems: ROS unobtainable: Yes unobtainable due to medical condition Exam Narrative: GEN: Elderly female lying in hospital bed PSYCH: Minimally responsive to verbal and tactile stimuli. Orientation to person unclear. Neck: No JVD. Chest: Coarse BS, tachypnea. Heart: NL S1,2, RR, no audible murmur. Extr: Trace pitting edema and 1-2+ non-pitting edema of feet and legs. Abs: BS hypoactive, soft, no abivous tenderness, no palpable mass. MS: No gross deformity to visual inspection. Neuro: CN symmetric to visual inspection. Objective Data Vital Signs Vital Signs: Vital Signs - 24 hr 08/17/23 19:54 08/17/23 20:00 08/18/23 08:00 Temperature 98.0 F Pulse Rate 88 88 Respiratory Rate 4 L 4 L Blood Pressure 130/72 Pulse Oximetry 97 97 Oxygen Delivery Room Air Room Air Intake/Output Intake/Output: Intake & Output 08/15/23 08/16/23 08/17/23 08/18/23 23:59 23:59 23:59 23:59 Intake Total 240.3 300 300 Output Total 100 200 Balance 140.3 100 300 Meds/Results Medications: Active Medications Generic Name Dose Route Start Last Admin Trade Name Freq PRN Reason Stop Dose Admin Artificial Tears 1 - 2 drop 08/14/23 15:43 Artificial Tears Ophth Soln 15 Ml Bottle EACH EYE Q8H PRN Dry Eye(s) Bisacodyl 10 mg 08/14/23 15:44 Bisacodyl 10 Mg Suppository RECTAL QAM PRN Constipation Glycopyrrolate 0.1 mg 08/14/23 15:42 08/17/23 17:09 Glycopyrrolate Inj (*Sp) 0.2 Mg/Ml Vial IV PUSH 0.1 mg Q4H PRN Administration Secretions Morphine Sulfate 50 mg in 100 mls @ 2 mls/hr 08/14/23 15:40 08/17/23 17:20 IV CONT 1 mg/hr .Q24H MARILU 2 mls/hr Administration 1 MG/HR Levetiracetam 500 mg in 100 mls @ 400 mls/hr 08/14/23 16:00 08/18/23 04:01 Keppra Iv IVPB 400 mls/hr Q12H MARILU Administration Lorazepam 1 mg 08/14/23 15:42 Lorazepam Inj (*Crx) 2 Mg/Ml Vial IV PUSH Q4H PRN Restlessness Morphine Sulfate 2 mg 08/14/23 15:41 Morphine Sulfate (*Crx) 2 Mg/Ml Inj IV PUSH Q2H PRN Pain/Shortness of breath Prochlorperazine Edisylate 10 mg 08/14/23 15:43 Prochlorperazine Edisylate 10 Mg/2 Ml Vial IV PUSH Q6H PRN Nausea And Vomiting
[2023-08-18] MEDS: MORPHINE 50 MG/NS 100ML (*CRX) 50 MG/100 ML BAG IV CONT (17:35)
[2023-08-18 18:09] VITALS: BP 121/77; PULSE 70; RESP 12; TEMP 36.5; O2SAT 88
[2023-08-18 20:00] VITALS: BP 148/89; PULSE 81; RESP 15; TEMP 36.3; O2SAT 95
[2023-08-19] MEDS: levETIRAcetam 500MG/NACL 100ML 500 MG/100 ML BAG 400 MG IVPB ×2 (04:14→16:12)
[2023-08-19 14:17] VITALS: BP 131/84; PULSE 80; RESP 6; O2SAT 90
[2023-08-19] MEDS: MORPHINE 50 MG/NS 100ML (*CRX) 50 MG/100 ML BAG IV CONT (17:17)
[2023-08-19 19:57] VITALS: BP 149/81; PULSE 78; RESP 8; TEMP 36.7; O2SAT 96
--- NOTE | 2023-08-19 22:55 | PM.IMPN ---
Progress Note: A&P Assessment and Plan (1) Palliative care encounter: Code(s): Z51.5 - Encounter for palliative care Status: Acute Assessment and Plan: Meets in patient hospice criteria due to requiring continuous IV morphine for control of dyspnea. PRN palliative regimen ordered. 08/14/2023 discussed care and prognosis with family at bedside. 08/17/2023 discussed care and imminent with family at bedside. 08/18/2023 imminent 08/19/2023 imminent (2) Dementia: Code(s): F03.90 - Unspecified dementia, unspecified severity, without behavioral disturbance, psychotic disturbance, mood disturbance, and anxiety Status: Acute (3) Hydrocephalus: Code(s): G91.9 - Hydrocephalus, unspecified Status: Acute (4) Severe malnutrition: Code(s): E43 - Unspecified severe protein-calorie malnutrition Status: Acute (5) Acute metabolic encephalopathy: Code(s): G93.41 - Metabolic encephalopathy Status: Acute (6) Observed seizure-like activity: Code(s): R56.9 - Unspecified convulsions Status: Acute (7) Pneumonia: Code(s): J18.9 - Pneumonia, unspecified organism Status: Acute (8) Urinary tract infection: Code(s): N39.0 - Urinary tract infection, site not specified Status: Acute Subjective Date/time seen: 08/19/23 11:00 Interval history: Remained comfortable on IV morphine overnight. Review of Systems Review of Systems: ROS unobtainable: Yes unobtainable due to medical condition Exam Narrative: Resting comfortably. Objective Data Vital Signs Vital Signs: Vital Signs - 24 hr 08/19/23 08:00 08/19/23 14:17 08/19/23 19:57 Temperature 98.1 F Pulse Rate 80 78 Respiratory Rate 6 L 8 L Blood Pressure 131/84 149/81 H Pulse Oximetry 90 96 Oxygen Delivery Room Air 08/19/23 20:00 Temperature Pulse Rate Respiratory Rate Blood Pressure Pulse Oximetry Oxygen Delivery Room Air Intake/Output Intake/Output: Intake & Output 08/16/23 08/17/23 08/18/23 08/19/23 23:59 23:59 23:59 23:59 Intake Total 300 300 230 300 Output Total 200 Balance 100 300 230 300 Meds/Results Medications: Active Medications Generic Name Dose Route Start Last Admin Trade Name Freq PRN Reason Stop Dose Admin Artificial Tears 1 - 2 drop 08/14/23 15:43 Artificial Tears Ophth Soln 15 Ml Bottle EACH EYE Q8H PRN Dry Eye(s) Bisacodyl 10 mg 08/14/23 15:44 Bisacodyl 10 Mg Suppository RECTAL QAM PRN Constipation Glycopyrrolate 0.1 mg 08/14/23 15:42 08/17/23 17:09 Glycopyrrolate Inj (*Sp) 0.2 Mg/Ml Vial IV PUSH 0.1 mg Q4H PRN Administration Secretions Morphine Sulfate 50 mg in 100 mls @ 2 mls/hr 08/14/23 15:40 08/19/23 17:17 IV CONT 1 mg/hr .Q24H MARILU 2 mls/hr Administration 1 MG/HR Levetiracetam 500 mg in 100 mls @ 400 mls/hr 08/14/23 16:00 08/19/23 16:27 Keppra Iv IVPB Infused Q12H MARILU Infusion Lorazepam 1 mg 08/14/23 15:42 Lorazepam Inj (*Crx) 2 Mg/Ml Vial IV PUSH Q4H PRN Restlessness Morphine Sulfate 2 mg 08/14/23 15:41 Morphine Sulfate (*Crx) 2 Mg/Ml Inj IV PUSH Q2H PRN Pain/Shortness of breath Prochlorperazine Edisylate 10 mg 08/14/23 15:43 Prochlorperazine Edisylate 10 Mg/2 Ml Vial IV PUSH Q6H PRN Nausea And Vomiting
[2023-08-20] MEDS: levETIRAcetam 500MG/NACL 100ML 500 MG/100 ML BAG 400 MG IVPB ×2 (04:14→16:02)
[2023-08-20] MEDS: GLYCOPYRROLATE INJ (*SP) 0.2 MG/ML VIAL 0.1 MG IV PUSH (04:45)
[2023-08-20] MEDS: MORPHINE 50 MG/NS 100ML (*CRX) 50 MG/100 ML BAG IV CONT (16:20)
--- NOTE | 2023-08-20 17:02 | PM.IMPN ---
Progress Note: A&P Assessment and Plan (1) Palliative care encounter: Code(s): Z51.5 - Encounter for palliative care Status: Acute Assessment and Plan: Meets in patient hospice criteria due to requiring continuous IV morphine for control of dyspnea. PRN palliative regimen ordered. 08/14/2023 discussed care and prognosis with family at bedside. 08/17/2023 discussed care and imminent with family at bedside. 08/18/2023 imminent 08/19/2023 imminent 08/20/2023 discussed care and prognosis with family at bedside. (2) Dementia: Code(s): F03.90 - Unspecified dementia, unspecified severity, without behavioral disturbance, psychotic disturbance, mood disturbance, and anxiety Status: Acute (3) Hydrocephalus: Code(s): G91.9 - Hydrocephalus, unspecified Status: Acute (4) Severe malnutrition: Code(s): E43 - Unspecified severe protein-calorie malnutrition Status: Acute (5) Acute metabolic encephalopathy: Code(s): G93.41 - Metabolic encephalopathy Status: Acute (6) Observed seizure-like activity: Code(s): R56.9 - Unspecified convulsions Status: Acute (7) Pneumonia: Code(s): J18.9 - Pneumonia, unspecified organism Status: Acute (8) Urinary tract infection: Code(s): N39.0 - Urinary tract infection, site not specified Status: Acute Subjective Date/time seen: 08/20/23 17:02 Interval history: Remained comfortable on IV morphine overnight. Review of Systems Review of Systems: ROS unobtainable: Yes unobtainable due to medical condition Exam Narrative: Resting comfortably. Objective Data Vital Signs Vital Signs: Vital Signs - 24 hr 08/19/23 19:57 08/19/23 20:00 08/20/23 08:00 Temperature 98.1 F Pulse Rate 78 Respiratory Rate 8 L Blood Pressure 149/81 H Pulse Oximetry 96 Oxygen Delivery Room Air Room Air Intake/Output Intake/Output: Intake & Output 08/17/23 08/18/23 08/19/23 08/20/23 23:59 23:59 23:59 23:59 Intake Total 300 230 300 200 Balance 300 230 300 200 Meds/Results Medications: Active Medications Generic Name Dose Route Start Last Admin Trade Name Freq PRN Reason Stop Dose Admin Artificial Tears 1 - 2 drop 08/14/23 15:43 Artificial Tears Ophth Soln 15 Ml Bottle EACH EYE Q8H PRN Dry Eye(s) Bisacodyl 10 mg 08/14/23 15:44 Bisacodyl 10 Mg Suppository RECTAL QAM PRN Constipation Glycopyrrolate 0.1 mg 08/14/23 15:42 08/20/23 04:45 Glycopyrrolate Inj (*Sp) 0.2 Mg/Ml Vial IV PUSH 0.1 mg Q4H PRN Administration Secretions Morphine Sulfate 50 mg in 100 mls @ 2 mls/hr 08/14/23 15:40 08/20/23 16:20 IV CONT 1 mg/hr .Q24H MARILU 2 mls/hr Administration 1 MG/HR Levetiracetam 500 mg in 100 mls @ 400 mls/hr 08/14/23 16:00 08/20/23 16:02 Keppra Iv IVPB 400 mls/hr Q12H MARILU Administration Lorazepam 1 mg 08/14/23 15:42 Lorazepam Inj (*Crx) 2 Mg/Ml Vial IV PUSH Q4H PRN Restlessness Morphine Sulfate 2 mg 08/14/23 15:41 Morphine Sulfate (*Crx) 2 Mg/Ml Inj IV PUSH Q2H PRN Pain/Shortness of breath Prochlorperazine Edisylate 10 mg 08/14/23 15:43 Prochlorperazine Edisylate 10 Mg/2 Ml Vial IV PUSH Q6H PRN Nausea And Vomiting
[2023-08-20 17:33] VITALS: BP 151/77; PULSE 72; RESP 4; TEMP 36.2; O2SAT 97
[2023-08-20 20:00] VITALS: BP 128/76; PULSE 72; RESP 8; TEMP 36.5; O2SAT 96
[2023-08-21] MEDS: levETIRAcetam 500MG/NACL 100ML 500 MG/100 ML BAG 400 MG IVPB ×2 (04:11→16:01)
[2023-08-21 12:38] VITALS: BP 135/86; PULSE 67; RESP 4; O2SAT 96
[2023-08-21] MEDS: MORPHINE 50 MG/NS 100ML (*CRX) 50 MG/100 ML BAG IV CONT (16:23)
--- NOTE | 2023-08-21 16:35 | PM.IMPN ---
Progress Note: A&P Assessment and Plan (1) Palliative care encounter: Code(s): Z51.5 - Encounter for palliative care Status: Acute Assessment and Plan: Meets in patient hospice criteria due to requiring continuous IV morphine for control of dyspnea. PRN palliative regimen ordered. 08/14/2023 discussed care and prognosis with family at bedside. 08/17/2023 discussed care and imminent with family at bedside. 08/18/2023 imminent 08/19/2023 imminent 08/20/2023 discussed care and prognosis with family at bedside. 08/21/2023 discussed care and prognosis with family at bedside. (2) Dementia: Code(s): F03.90 - Unspecified dementia, unspecified severity, without behavioral disturbance, psychotic disturbance, mood disturbance, and anxiety Status: Acute (3) Hydrocephalus: Code(s): G91.9 - Hydrocephalus, unspecified Status: Acute (4) Severe malnutrition: Code(s): E43 - Unspecified severe protein-calorie malnutrition Status: Acute (5) Acute metabolic encephalopathy: Code(s): G93.41 - Metabolic encephalopathy Status: Acute (6) Observed seizure-like activity: Code(s): R56.9 - Unspecified convulsions Status: Acute (7) Pneumonia: Code(s): J18.9 - Pneumonia, unspecified organism Status: Acute (8) Urinary tract infection: Code(s): N39.0 - Urinary tract infection, site not specified Status: Acute Subjective Date/time seen: 08/21/23 16:35 Interval history: Remained comfortable on IV morphine overnight. Review of Systems Review of Systems: ROS unobtainable: Yes unobtainable due to medical condition Exam Narrative: Resting comfortably. Objective Data Vital Signs Vital Signs: Vital Signs - 24 hr 08/20/23 17:33 08/20/23 20:00 08/20/23 20:00 Temperature 97.1 F L 97.7 F Pulse Rate 72 72 Respiratory Rate 4 L 8 L Blood Pressure 151/77 H 128/76 Pulse Oximetry 97 96 Oxygen Delivery Room Air 08/21/23 08:03 08/21/23 12:38 Temperature Pulse Rate 67 Respiratory Rate 4 L Blood Pressure 135/86 Pulse Oximetry 96 Oxygen Delivery Room Air Intake/Output Intake/Output: Intake & Output 03/11/0508/19/23 08/20/23 08/21/23 23:59 23:59 23:59 23:59 Intake Total 230 300 300 300 Balance 230 300 300 300 Meds/Results Medications: Active Medications Generic Name Dose Route Start Last Admin Trade Name Freq PRN Reason Stop Dose Admin Artificial Tears 1 - 2 drop 08/14/23 15:43 Artificial Tears Ophth Soln 15 Ml Bottle EACH EYE Q8H PRN Dry Eye(s) Bisacodyl 10 mg 08/14/23 15:44 Bisacodyl 10 Mg Suppository RECTAL QAM PRN Constipation Glycopyrrolate 0.1 mg 08/14/23 15:42 08/20/23 04:45 Glycopyrrolate Inj (*Sp) 0.2 Mg/Ml Vial IV PUSH 0.1 mg Q4H PRN Administration Secretions Morphine Sulfate 50 mg in 100 mls @ 2 mls/hr 08/14/23 15:40 08/21/23 16:23 IV CONT 1 mg/hr .Q24H MARILU 2 mls/hr Administration 1 MG/HR Levetiracetam 500 mg in 100 mls @ 400 mls/hr 08/14/23 16:00 08/21/23 16:16 Keppra Iv IVPB Infused Q12H MARILU Infusion Lorazepam 1 mg 08/14/23 15:42 Lorazepam Inj (*Crx) 2 Mg/Ml Vial IV PUSH Q4H PRN Restlessness Morphine Sulfate 2 mg 08/14/23 15:41 Morphine Sulfate (*Crx) 2 Mg/Ml Inj IV PUSH Q2H PRN Pain/Shortness of breath Prochlorperazine Edisylate 10 mg 08/14/23 15:43 Prochlorperazine Edisylate 10 Mg/2 Ml Vial IV PUSH Q6H PRN Nausea And Vomiting
[2023-08-21 19:44] VITALS: PULSE 67; RESP 4; O2SAT 96
[2023-08-21 21:29] VITALS: BP 116/67; PULSE 75; RESP 16; TEMP 36.7; O2SAT 93
[2023-08-22] MEDS: levETIRAcetam 500MG/NACL 100ML 500 MG/100 ML BAG 400 MG IVPB ×2 (03:53→15:45)
[2023-08-22 08:00] VITALS: BP 159/80; PULSE 76; RESP 12; TEMP 36.4; O2SAT 94
--- NOTE | 2023-08-22 12:04 | PM.IMPN ---
Progress Note: A&P Assessment and Plan (1) Palliative care encounter: Code(s): Z51.5 - Encounter for palliative care Status: Acute Assessment and Plan: Meets in patient hospice criteria due to requiring continuous IV morphine for control of dyspnea. PRN palliative regimen ordered. 08/14/2023 discussed care and prognosis with family at bedside. 08/17/2023 discussed care and imminent with family at bedside. 08/18/2023 imminent 08/19/2023 imminent 08/20/2023 discussed care and prognosis with family at bedside. 08/21/2023 discussed care and prognosis with family at bedside. 08/22/2023 less responsive and still requiring continuous iv morphine. (2) Dementia: Code(s): F03.90 - Unspecified dementia, unspecified severity, without behavioral disturbance, psychotic disturbance, mood disturbance, and anxiety Status: Acute (3) Hydrocephalus: Code(s): G91.9 - Hydrocephalus, unspecified Status: Acute (4) Severe malnutrition: Code(s): E43 - Unspecified severe protein-calorie malnutrition Status: Acute (5) Acute metabolic encephalopathy: Code(s): G93.41 - Metabolic encephalopathy Status: Acute (6) Observed seizure-like activity: Code(s): R56.9 - Unspecified convulsions Status: Acute (7) Pneumonia: Code(s): J18.9 - Pneumonia, unspecified organism Status: Acute (8) Urinary tract infection: Code(s): N39.0 - Urinary tract infection, site not specified Status: Acute Subjective Date/time seen: 08/22/23 12:04 Interval history: Remained comfortable on IV morphine overnight. Review of Systems Review of Systems: ROS unobtainable: Yes unobtainable due to medical condition Exam Narrative: Resting comfortably. Objective Data Vital Signs Vital Signs: Vital Signs - 24 hr 08/21/23 12:38 08/21/23 19:44 08/21/23 21:29 Temperature 98.1 F Pulse Rate 67 67 75 Respiratory Rate 4 L 4 L 16 Blood Pressure 135/86 116/67 Pulse Oximetry 96 96 93 Oxygen Delivery Room Air 08/22/23 08:45 Temperature Pulse Rate Respiratory Rate Blood Pressure Pulse Oximetry Oxygen Delivery Room Air Intake/Output Intake/Output: Intake & Output 03/06/24 08/20/23 08/21/23 08/22/23 23:59 23:59 23:59 23:59 Intake Total 300 300 242 0 Balance 300 300 242 0 Meds/Results Medications: Active Medications Generic Name Dose Route Start Last Admin Trade Name Freq PRN Reason Stop Dose Admin Artificial Tears 1 - 2 drop 08/14/23 15:43 Artificial Tears Ophth Soln 15 Ml Bottle EACH EYE Q8H PRN Dry Eye(s) Bisacodyl 10 mg 08/14/23 15:44 Bisacodyl 10 Mg Suppository RECTAL QAM PRN Constipation Glycopyrrolate 0.1 mg 08/14/23 15:42 08/20/23 04:45 Glycopyrrolate Inj (*Sp) 0.2 Mg/Ml Vial IV PUSH 0.1 mg Q4H PRN Administration Secretions Morphine Sulfate 50 mg in 100 mls @ 2 mls/hr 08/14/23 15:40 08/21/23 16:23 IV CONT 1 mg/hr .Q24H MARILU 2 mls/hr Administration 1 MG/HR Levetiracetam 500 mg in 100 mls @ 400 mls/hr 08/14/23 16:00 08/22/23 03:53 Keppra Iv IVPB 400 mls/hr Q12H MARILU Administration Lorazepam 1 mg 08/14/23 15:42 Lorazepam Inj (*Crx) 2 Mg/Ml Vial IV PUSH Q4H PRN Restlessness Morphine Sulfate 2 mg 08/14/23 15:41 Morphine Sulfate (*Crx) 2 Mg/Ml Inj IV PUSH Q2H PRN Pain/Shortness of breath Prochlorperazine Edisylate 10 mg 08/14/23 15:43 Prochlorperazine Edisylate 10 Mg/2 Ml Vial IV PUSH Q6H PRN Nausea And Vomiting
[2023-08-22] MEDS: MORPHINE 50 MG/NS 100ML (*CRX) 50 MG/100 ML BAG IV CONT (16:04)
[2023-08-22 19:39] VITALS: BP 156/73; PULSE 80; RESP 18; TEMP 36.8; O2SAT 93
[2023-08-22 19:45] VITALS: PULSE 80; RESP 18; O2SAT 93
[2023-08-23] MEDS: levETIRAcetam 500MG/NACL 100ML 500 MG/100 ML BAG 400 MG IVPB ×2 (04:07→16:10)
[2023-08-23 08:00] VITALS: BP 124/69; PULSE 75; RESP 5; TEMP 36.6; O2SAT 95
[2023-08-23] MEDS: MORPHINE 50 MG/NS 100ML (*CRX) 50 MG/100 ML BAG IV CONT (16:28)
--- NOTE | 2023-08-23 19:12 | PM.IMPN ---
Progress Note: A&P Assessment and Plan (1) Palliative care encounter: Code(s): Z51.5 - Encounter for palliative care Status: Acute Assessment and Plan: Meets in patient hospice criteria due to requiring continuous IV morphine for control of dyspnea. PRN palliative regimen ordered. 08/14/2023 discussed care and prognosis with family at bedside. 08/17/2023 discussed care and imminent with family at bedside. 08/18/2023 imminent 08/19/2023 imminent 08/20/2023 discussed care and prognosis with family at bedside. 08/21/2023 discussed care and prognosis with family at bedside. 08/22/2023 less responsive and still requiring continuous iv morphine. 08/23/2023 more alert during day but again less responsive in pm and requiring continuous IV morphine for analgesia. (2) Dementia: Code(s): F03.90 - Unspecified dementia, unspecified severity, without behavioral disturbance, psychotic disturbance, mood disturbance, and anxiety Status: Acute (3) Hydrocephalus: Code(s): G91.9 - Hydrocephalus, unspecified Status: Acute (4) Severe malnutrition: Code(s): E43 - Unspecified severe protein-calorie malnutrition Status: Acute (5) Acute metabolic encephalopathy: Code(s): G93.41 - Metabolic encephalopathy Status: Acute (6) Observed seizure-like activity: Code(s): R56.9 - Unspecified convulsions Status: Acute (7) Pneumonia: Code(s): J18.9 - Pneumonia, unspecified organism Status: Acute (8) Urinary tract infection: Code(s): N39.0 - Urinary tract infection, site not specified Status: Acute Subjective Date/time seen: 08/23/23 19:12 Interval history: Remains comfortable on drip. Still no PO intake. More awake during the day. Spoke a few words. Review of Systems Review of Systems: ROS unobtainable: Yes unobtainable due to medical condition Exam Narrative: GEN: Elderly female lying in hospital bed PSYCH: Minimally responsive to verbal and tactile stimuli. Orientation to person unclear. Neck: No JVD. Chest: Coarse BS, tachypnea. Heart: NL S1,2, RR, no audible murmur. Extr: Trace pitting edema and 1-2+ non-pitting edema of feet and legs. Abs: BS hypoactive, soft, no abivous tenderness, no palpable mass. MS: No gross deformity to visual inspection. Neuro: CN symmetric to visual inspection. Objective Data Vital Signs Vital Signs: Vital Signs - 24 hr 08/22/23 19:39 08/22/23 19:45 08/23/23 09:00 Temperature 98.3 F Pulse Rate 80 80 Respiratory Rate 18 18 Blood Pressure 156/73 H Pulse Oximetry 93 93 Oxygen Delivery Room Air Room Air 08/23/23 08:00 Temperature 97.8 F Pulse Rate 75 Respiratory Rate 5 L Blood Pressure 124/69 Pulse Oximetry 95 Oxygen Delivery Intake/Output Intake/Output: Intake & Output 08/20/23 08/21/23 08/22/23 08/24/23 23:59 23:59 23:59 00:59 Intake Total 300 242 300 242.5 Balance 300 242 300 242.5 Meds/Results Medications: Active Medications Generic Name Dose Route Start Last Admin Trade Name Freq PRN Reason Stop Dose Admin Artificial Tears 1 - 2 drop 08/14/23 15:43 Artificial Tears Ophth Soln 15 Ml Bottle EACH EYE Q8H PRN Dry Eye(s) Bisacodyl 10 mg 08/14/23 15:44 Bisacodyl 10 Mg Suppository RECTAL QAM PRN Constipation Glycopyrrolate 0.1 mg 08/14/23 15:42 08/20/23 04:45 Glycopyrrolate Inj (*Sp) 0.2 Mg/Ml Vial IV PUSH 0.1 mg Q4H PRN Administration Secretions Morphine Sulfate 50 mg in 100 mls @ 2 mls/hr 08/14/23 15:40 08/23/23 16:28 IV CONT 1 mg/hr .Q24H MARILU 2 mls/hr Administration 1 MG/HR Levetiracetam 500 mg in 100 mls @ 400 mls/hr 08/14/23 16:00 08/23/23 16:25 Keppra Iv IVPB Infused Q12H MARILU Infusion Lorazepam 1 mg 08/14/23 15:42 Lorazepam Inj (*Crx) 2 Mg/Ml Vial IV PUSH Q4H PRN Restlessness Morphine Sulfate 2 mg 08/14/23 15:41 Morphine Sulfate (*C
[2023-08-23 20:00] VITALS: BP 147/93; PULSE 72; PULSE 75; RESP 18; RESP 5; TEMP 36.9; O2SAT 94; O2SAT 95
[2023-08-24] MEDS: levETIRAcetam 500MG/NACL 100ML 500 MG/100 ML BAG 400 MG IVPB (03:54)
[2023-08-24 07:40] VITALS: RESP 18; O2SAT 94
[2023-08-24 11:23] VITALS: BP 148/90; PULSE 83; RESP 15; TEMP 36.7; O2SAT 92
[2023-08-24] MEDS: MORPHINE SULFATE ORAL CONC SOL (*CRX) 10 MG/0.5 ML SYRINGE PO ×3 (12:55→20:16)
--- NOTE | 2023-08-24 18:52 | PM.IMPN ---
Progress Note: A&P Assessment and Plan (1) Palliative care encounter: Code(s): Z51.5 - Encounter for palliative care Status: Acute Assessment and Plan: Meets in patient hospice criteria due to requiring continuous IV morphine for control of dyspnea. PRN palliative regimen ordered. 08/14/2023 discussed care and prognosis with family at bedside. 08/17/2023 discussed care and imminent with family at bedside. 08/18/2023 imminent 08/19/2023 imminent 08/20/2023 discussed care and prognosis with family at bedside. 08/21/2023 discussed care and prognosis with family at bedside. 08/22/2023 less responsive and still requiring continuous iv morphine. 08/23/2023 more alert during day but again less responsive in pm and requiring continuous IV morphine for analgesia. 08/24/2023 tolerated transition to po morphine so plan discharge 08/[address] [facility]. Subjective Date/time seen: 08/24/23 18:52 Interval history: Remains comfortable. Review of Systems Review of Systems: ROS unobtainable: Yes unobtainable due to medical condition Exam Narrative: GEN: Elderly female lying in hospital bed PSYCH: Minimally responsive to verbal and tactile stimuli. Orientation to person unclear. Neck: No JVD. Chest: Coarse BS, tachypnea. Heart: NL S1,2, RR, no audible murmur. Extr: Trace pitting edema and 1-2+ non-pitting edema of feet and legs. Abs: BS hypoactive, soft, no abivous tenderness, no palpable mass. MS: No gross deformity to visual inspection. Neuro: CN symmetric to visual inspection. Objective Data Vital Signs Vital Signs: Vital Signs - 24 hr 08/23/23 20:00 08/23/23 20:00 08/24/23 08:53 Temperature 98.4 F Pulse Rate 75 72 Respiratory Rate 5 L 18 Blood Pressure 147/93 H Pulse Oximetry 95 94 Oxygen Delivery Room Air Room Air 08/24/23 07:40 08/24/23 11:23 Temperature 98.0 F Pulse Rate 83 Respiratory Rate 18 15 Blood Pressure 148/90 H Pulse Oximetry 94 92 Oxygen Delivery Room Air Intake/Output Intake/Output: Intake & Output 08/21/23 08/22/23 08/23/23 08/24/23 22:59 22:59 23:59 23:59 Intake Total 0 Balance 0 Meds/Results Medications: Active Medications Generic Name Dose Route Start Last Admin Trade Name Freq PRN Reason Stop Dose Admin Artificial Tears 1 - 2 drop 08/14/23 15:43 Artificial Tears Ophth Soln 15 Ml Bottle EACH EYE Q8H PRN Dry Eye(s) Bisacodyl 10 mg 08/14/23 15:44 Bisacodyl 10 Mg Suppository RECTAL QAM PRN Constipation Glycopyrrolate 0.1 mg 08/14/23 15:42 08/20/23 04:45 Glycopyrrolate Inj (*Sp) 0.2 Mg/Ml Vial IV PUSH 0.1 mg Q4H PRN Administration Secretions Levetiracetam 500 mg 08/24/23 21:00 Levetiracetam Oral Janet 500 Mg/5 Ml Udc BY MOUTH Q12HR MARILU Lorazepam 1 mg 08/14/23 15:42 Lorazepam Inj (*Crx) 2 Mg/Ml Vial IV PUSH Q4H PRN Restlessness Morphine Sulfate 2 mg 08/14/23 15:41 Morphine Sulfate (*Crx) 2 Mg/Ml Inj IV PUSH Q2H PRN Pain/Shortness of breath Morphine Sulfate 10 mg 08/24/23 13:00 08/24/23 16:30 Morphine Sulfate Oral Conc Janet (*Crx) 10 Mg/0.5 Ml Syringe PO 10 mg Q4HR MARILU Administration Prochlorperazine Edisylate 10 mg 08/14/23 15:43 Prochlorperazine Edisylate 10 Mg/2 Ml Vial IV PUSH Q6H PRN Nausea And Vomiting
--- NOTE | 2023-08-24 19:04 | PM.DS ---
DS: Admitting Diagnosis Discharge Date 08/25/2023 Admitting Diagnosis metabolic encephalopathy DS: Discharge Diagnosis Discharge Diagnosis (1) Palliative care encounter: Code(s): Z51.5 - Encounter for palliative care Status: Acute Assessment and Plan: Meets in patient hospice criteria due to requiring continuous IV morphine for control of dyspnea. PRN palliative regimen ordered. 08/14/2023 discussed care and prognosis with family at bedside. 08/17/2023 discussed care and imminent with family at bedside. 08/18/2023 imminent 08/19/2023 imminent 08/20/2023 discussed care and prognosis with family at bedside. 08/21/2023 discussed care and prognosis with family at bedside. 08/22/2023 less responsive and still requiring continuous iv morphine. 08/23/2023 more alert during day but again less responsive in pm and requiring continuous IV morphine for analgesia. 08/24/2023 tolerated transition to po morphine so plan discharge 08/24 to [facility]. DS: Summary Hospital Course Hospital Course: This 73 y/o female had a gradual decline over the past 3 years. She was admitted after a seizure. She failed to regain consciousness. She has not eaten or drunk anything for about 9 days. Over the past 3 years she experienced increasing difficulties with ambulation, urinary incontinence, and memory. She continue to eat well until her generalized tonic-clonic seizure on 08/08/2023. During hospitalization she was treated for esbl e coli uti and rul infiltrate c/w aspiration pneumonia. Prior to onset of her dementia, she was healthy with the exception of hypertension. Comfort was maintained with IV morphine infusion. Her vital signs stablized and she had no further neurological deterioration. Therefore, she was transitioned to oral medications on 08/23 and discharged back to [facility] 08/25/2023 under hospice care. Time Spent with Patient Time attestation: Total time spent providing and/or coordinating discharge services: Exam Narrative: GEN: Elderly female lying in hospital bed PSYCH: Minimally responsive to verbal and tactile stimuli. Orientation to person unclear. Neck: No JVD. Chest: Coarse BS, tachypnea. Heart: NL S1,2, RR, no audible murmur. Extr: Trace pitting edema and 1-2+ non-pitting edema of feet and legs. Abs: BS hypoactive, soft, no abivous tenderness, no palpable mass. MS: No gross deformity to visual inspection. Neuro: CN symmetric to visual inspection. Discharge Plan Discharge Discharging Clinician: Darnell Vines Patient Disposition: Hospice - Medical Facility Activity: other - see discharge instructions Diet: other - see discharge instructions Discharge Instructions: Diet: Oral swabs and liquid meds and comfort foods as tolerated. Activity: Bedrest Stand Alone Forms: General Discharge Information, Long-Term Discharge Discharge Medications: New bisacodyl 10 mg Suppository 10 mg RECTAL QAM PRN (Reason: Constipation) Qty: 4 0RF Artificial Tears(ma-vosj-ueno) 1-0.2-0.2 % Drops 2 drp EACH EYE Q8H PRN (Reason: Dry Eye(S)) Qty: 15 0RF levetiracetam 100 mg/mL Solution 500 mg BYMOUTH Q12HR Qty: 100 0RF lorazepam 1 mg tablet 1 mg PO Q4H PRN (Reason: anxiety) Qty: 10 0RF morphine concentrate 100 mg/5 mL (20 mg/mL) solution See Rx Instructions .ROUTE .COMPLEX Qty: 15 0RF Rx Instructions: 10 mg SL every 6 hours and 5 mg SL every 2 hours prn pain or dyspnea Date of admission: 08/14/23 14:03 Primary Care Provider: ZackElder Admitting Provider: Darnell Vines Attending physician on admission: Darnell Vines Condition: Terminal
[2023-08-24 20:00] VITALS: BP 144/86; PULSE 71; RESP 6; TEMP 35.8; O2SAT 97
[2023-08-24] MEDS: levETIRAcetam ORAL SOL 500 MG/5 ML UDC BY MOUTH (20:16)
[2023-08-25] MEDS: MORPHINE SULFATE ORAL CONC SOL (*CRX) 10 MG/0.5 ML SYRINGE PO ×5 (01:52→16:23)
[2023-08-25 08:34] VITALS: O2SAT 97
[2023-08-25] MEDS: levETIRAcetam ORAL SOL 500 MG/5 ML UDC BY MOUTH (08:40)
[2023-08-25 13:55] VITALS: BP 128/84; PULSE 69; RESP 6; TEMP 36.3; O2SAT 91
[2023-08-25 16:20] VITALS: BP 108/62; PULSE 66; RESP 6; TEMP 36.8; O2SAT 93
--- OUTSIDE RECORDS SUMMARY | 2023-10-21 10:04 | XMS_ITS | Patient Health Record ---
Author Name Unknown Organization [facility] Address [address] [place] [address] Care Team Providers Care Hat Brusher Machine Name Role Phone Ty Willard Primary Care Provider [phone] Allergies Allergen (clinical drug ingredient) Drug/Non Drug Allergy documented on EMR Reaction Allergy Type Onset Date Status meperidine Demerol diarrhea Drug Allergy Active Reason For Referral Reason please evaluate and treat for home health services Diagnosis 1 Bedridden (Z74.01) Referral Organization [facility] Referring Provider First Name Ty Referring Provider Last Name Prelutsky Referring Provider Speciality Internal M edicine Referred Provider Specialty Mayda pak General Notes Amanda Parker 05/21/20 23 07:14:35 AM > sent to [facility] Referral Priority Routine Reason terminal operations supervisor care fax to [phone] Diagnosis 1 Dementia, unspecifie d dementia severity, unspecified dementia type, unspecified whether behavioral, psychotic, or mood disturbance or anxiety (F03.90) Referral Organization [facility] Referring Provider First Name Ty Referring Provider Last Name Prelutsky Referring Provider Speciality Internal M edicine Referred Provider Specialty Hospice and Palliative Medicine
== END 2023-08-25 17:50 | disposition hospice, inpatient (51) | DRG 951 ==
PROVIDERS: Admitting Provider Internal Medicine; PCP Internal Medicine; Visit Provider Internal Medicine
DX: Z51.5 Encounter for palliative care (principal); G93.41 Metabolic encephalopathy; E43 Unspecified severe protein-calorie malnutrition; J18.9 Pneumonia, unspecified organism; G91.9 Hydrocephalus, unspecified; N39.0 Urinary tract infection, site not specified; I10 Essential (primary) hypertension; E78.5 Hyperlipidemia, unspecified; E03.9 Hypothyroidism, unspecified; F03.90 Unspecified dementia, unspecified severity, without behavioral disturbance, psychotic disturbance, mood disturbance, and anxiety; Z66 Do not resuscitate; Z68.26 Body mass index [BMI] 26.0-26.9, adult; Z87.891 Personal history of nicotine dependence
CPT/HCPCS: A9270; J1596; J1953; J2270